=== PATIENT | female | born 1940 | race Caucasian/White ===

== ENCOUNTER 2017-06-18 16:10 | Emergency (ER) | payer OTHER ==
[2017-06-18 16:15] VITALS: BP 141/75; PULSE 100; TEMP 98.1; BMI 23.0
--- NOTE | 2017-06-18 16:55 | PDOC ---
Attending Attestation - Resident Resident Name: Chavo Denton - ED Attending Attestation I have performed the following: I have examined & evaluated the patient, The case was reviewed & discussed with the resident, I agree w/resident's findings & plan, Exceptions are as noted - HPI HPI: 06/19/17 02:09 77-year-old woman tripped walking on this sidewalk and sustained facial abrasions and a small nasal bridge laceration - Physicial Exam PE: 06/19/17 02:09 Family female who is alert and conversant presents with forehead bruising, superficial lacerations and a small laceration across the nasal bridge. Neck no pinpoint cervical for tenderness Lungs clear to auscultation bilaterally RSV is regular rate and rhythm S1, S2 Abdomen is soft, nontender, nondistended, no splenic tenderness. Extremities full range of motion, no deformities. Neuro alert and oriented 3, moving all extremities, appropriate affect - Medical Decision Making 06/19/17 02:11 Patient has a nondisplaced nasal fracture. Laceration repaired. Patient discharged home. Head CT was negative for any acute intracranial pathology
--- NOTE | 2017-06-18 17:24 | PDOC ---
History of Present Illness - General Chief Complaint: Injury Stated Complaint: FELL/INJURY TO FACE Time Seen by Provider: 06/18/17 16:49 - History of Present Illness Initial Comments: 06/18/17 17:26 77 yo [place] speaking female who presents with nasal bridge trauma. Pt. reports nasal bridge pain and laceration following fall. States that at 1600 () she was ambulating and left foot was caught and she fell onto hands and knees then slid onto her forehead and face onto the pavement. She states that she is able to breath through bilateral nares and endorses nasal bridge pain. She also complains of frontal head pain. she denies NV, lightheadedness, LOC, vision change, neck pain/stiffness, back pain, weakness, or fatigue. No chest pain. Has had ongoing GI upset for past month and follows with Dr. Jovanna CHARLES. Also ongoing UTI with antibiotic treatment. Pt. non intoxicated. No anticoagulation. Past History - Past Medical History Allergies/Adverse Reactions: Allergies Allergy/AdvReac Type Severity Reaction Status Date / Time Penicillins Allergy Severe Difficulty Verified 06/18/17 16:15 Breathing Home Medications: Ambulatory Orders Alendronate Na [Fosamax (Weekly)] 70 mg PO Q7D 12/26/13 Bupropion HCl [Wellbutrin Xl -] 150 mg PO DAILY 12/26/13 Folic Acid - 1 mg PO DAILY 12/26/13 Prednisone [Deltasone -] 5 mg PO DAILY 12/26/13 Sulfasalazine [Sulfazine] 500 mg PO BID 12/26/13 Indomethacin 50 mg PO DAILY 07/29/14 Ranitidine [Zantac -] 150 mg PO DAILY 07/29/14 Anemia: No Asthma: No Cancer: Yes (BREAST) Cardiac Disorders: No CVA: No COPD: No CHF: No Dementia: No Diabetes: No GI Disorders: No Disorders: No HTN: No Hypercholesterolemia: No Liver Disease: No Psychiatric Problems: Yes (DEPRESSION) Seizures: No Thyroid Disease: No Other medical history: RHEUMATIC ARTHRITIS - Surgical History Appendectomy: No Cardiac Surgery: No Cholecystectomy: No Lung Surgery: No Neurologic Surgery: Yes ("FUSION OF SPINAL BONES") Orthopedic Surgery: No - Psycho/Social/Smoking Cessation Hx Anxiety: No Suicidal Ideation: No Smoking History: Never smoked Hx Alcohol Use: No Drug/Substance Use Hx: No Substance Use Type: None Hx Substance Use Treatment: No Review of Systems - Review of Systems Comments:: 06/18/17 17:00 GENERAL/CONSTITUTIONAL: No fever or chills. No weakness. HEAD, EYES, EARS, NOSE AND THROAT: No change in vision. No ear pain or discharge. No sore throat.- CARDIOVASCULAR: No chest pain or shortness of breath RESPIRATORY: No cough, wheezing, or hemoptysis. GASTROINTESTINAL: No nausea, vomiting, diarrhea or constipation. GENITOURINARY: No dysuria, frequency, or change in urination. MUSCULOSKELETAL: No joint or muscle swelling or pain. No neck or back pain. SKIN: No rash NEUROLOGIC: No headache, vertigo, loss of consciousness, or change in strength/ sensation. ENDOCRINE: No increased thirst. No abnormal weight change HEMATOLOGIC/LYMPHATIC: No anemia, easy bleeding, or history of blood clots. ALLERGIC/IMMUNOLOGIC: No hives or skin allergy. *Physical Exam - Vital Signs Last Vital Signs Temp Pulse Resp BP Pulse Ox 98.1 F 100 H 18 141/75 100 06/18/17 16:11 06/18/17 16:11 06/18/17 16:11 06/18/17 16:11 06/18/17 16:11 - Physical Exam Comments: 06/18/17 17:00 GENERAL: Awake, alert, and fully oriented, in no acute distress EYES: PERRLA, EOMI, sclera anicteric, conjunctiva clear ENT: Auricles normal inspection, hearing grossly normal, nares patent, oropharynx clear without exudates. Moist mucosa NECK: Normal ROM, supple, no lymphadenopathy, JVD, or masses LUNGS: No distress, speaks full sentences, clear to auscultation bilaterally HEART: Regular rate and rhythm, normal S1 and S2, no murmurs, rubs or gallops, peripheral pulses normal and equal bilaterally. ABDOMEN: Soft, nontender, normoactive bowel sounds. No guarding, no rebound. No masses EXTREMITIES : Normal inspection, Normal range of motion, no edema. No clubbing or cyanosis. SKIN: Warm, Dry, normal turgor, no rashes or lesions noted. + ttp at nasal bridge with proximal 1 cm horizontal laceration. absent septal deviation or septal hematoma. + dried blood in BL nares. + Frontal sinus ttp. + left sided frontal forehead abrasion No evidence of tongue laceration or tooth avulsion.Absent maxillary/mandibular ttp. Cleared via Nexus criteria, absent C spine ttp, AMS, distracting injury. BL knees: left knee vargus deformity d/t chronic arthritis. BNL knee exam unremarkable with + BL patellar abrasions.Neg Ant drawer and post drawer test . Normal Valgus and Varus laxity. Absent tibial plateua ttp. Normal active and passive ROM. Asbent ecchymosis and swelling. Absent joint effusion. Medical Decision Making - Medical Decision Making 06/18/17 17:42 77 yo [place] speaking female who presents with nasal bridge trauma. Pt. reports nasal bridge pain and laceration following fall. States that at 1600 () she was ambulating and left foot was caught and she fell onto hands and knees then slid onto her forehead and face onto the pavement. She states that she is able to breath through bilateral nares and endorses nasal bridge pain. She also complains of frontal head pain. Denies associated symptoms. + ttp at nasal bridge with proximal 1 cm horizontal laceration. absent septal deviation or septal hematoma. + Frontal sinus ttp. + left sided frontal forehead abrasion Cleared via Nexus criteria. DDx: Nasal bridge laceration vs fracture ED Course: Non Con CT Head/Face 06/18/17 19:00 CT Face: Fracture at tip of nasal bone CT head: neg *DC/Admit/Observation/Transfer Diagnosis at time of Disposition: Nasal bone fracture Qualifiers: Encounter type: initial encounter Fracture type: closed Qualified Code(s): S02.2XXA - Fracture of nasal bones, initial encounter for closed fracture - Discharge Dispostion Disposition: HOME Condition at time of disposition: Improved Admit: No - Patient Instructions Additional Instructions: Please return to Ed if you experience severe headaches, nausea/vomiting, neck pain, or worsening symptoms. Please take Ibuprofen 600 mg and/or acetaminophen as needed. Do not exceed 3200 mg per day.
== END 2017-06-18 19:52 | disposition home or self-care (01) ==
LOC: JER 16:10
PROC: 09QK3ZZ Repair Nasal Mucosa and Soft Tissue, Percutaneous Approach (ICD-10-PCS; principal; 2017-06-18)
DX: S02.2XXA Fracture of nasal bones, initial encounter for closed fracture (principal); S01.21XA Laceration without foreign body of nose, initial encounter; S00.81XA Abrasion of other part of head, initial encounter; W01.0XXA Fall on same level from slipping, tripping and stumbling without subsequent striking against object, initial encounter; Y93.89 Activity, other specified; Y92.480 Sidewalk as the place of occurrence of the external cause; F32.9 Major depressive disorder, single episode, unspecified; M06.9 Rheumatoid arthritis, unspecified; Z85.3 Personal history of malignant neoplasm of breast
CPT/HCPCS: 12011-25; 70450-TC; 70486-TC; 99282-25

== ENCOUNTER 2018-01-10 10:06 | Inpatient (IN) | payer OTHER ==
[2018-01-10 10:11] VITALS: BMI 16.6
--- NOTE | 2018-01-10 10:17 | PDOC ---
History of Present Illness - General Chief Complaint: Pain, Acute Stated Complaint: FEVER, NAUSEA History Source: Patient Exam Limitations: No Limitations - History of Present Illness Initial Comments: 01/10/18 10:17 HPI: This 77-year-old female who is speaking only presents to the emergency room with her daughter who is translating. According to the daughter the patient has been having a fever, nausea, vomiting 2 days. She's been having chills and yesterday was noted to have a fever of 102. She took Motrin and the fever came down however she was been lying around. She has been under the care of Dr. Nugent since June 12 GI problems and some gallstones according to the daughter. She was recently at Dr. Nugent's office and after calling him today about the fever chills and nausea and vomiting he was concerned to have her being sent in for further evaluation. She has had a weight loss of over 35 pounds in the last 6 months. Chief Compliant: Fever, nausea, vomiting PMH: Breast cancer, depression, rheumatoid arthritis FH: Pt has not recently traveled outside the country in the last 30 days. Pt has not been in contact with people who have traveled out of the country, in contact with people who have been ill with fever, n, v, d. SH: smoking use: NONE illicit drug use: NONE alcohol use: NONE employment/educational status: sexual history: PSH: Spinal fusion Home med use noted on DEC Allergies: Penicillin Immunizations: PCP: [facility] [employer] Grazier is Dr. Spence he Emergency Crew Supervisor is Dr. Lance Noriega GI physician is Dr. Nugent Past History - Past Medical History Allergies/Adverse Reactions: Allergies Allergy/AdvReac Type Severity Reaction Status Date / Time Penicillins Allergy Severe Difficulty Verified 01/10/18 10:11 Breathing Home Medications: Ambulatory Orders Bupropion HCl [Wellbutrin Xl -] 150 mg PO DAILY 12/26/13 Folic Acid - 1 mg PO DAILY 12/26/13 Sulfasalazine [Sulfazine] 500 mg PO BID 12/26/13 predniSONE [Deltasone -] 5 mg PO DAILY 12/26/13 Atorvastatin Calcium 20 mg PO HS 01/10/18 Calcium Carbonate [Calcium] 600 mg PO DAILY 01/10/18 Certolizumab Pegol [Cimzia] 400 mg SQ Q30D 01/10/18 Duloxetine HCl 30 mg PO BID 01/10/18 Metoclopramide HCl 5 mg PO DAILY 01/10/18 Mirtazapine 7.5 mg PO HS 01/10/18 Omeprazole 40 mg PO DAILY 01/10/18 Ondansetron [Zofran -] 4 mg PO TID 01/10/18 Anemia: No Asthma: No Cancer: Yes (BREAST) Cardiac Disorders: No CVA: No COPD: No CHF: No DVT: No Dementia: No Diabetes: No GI Disorders: No Disorders: No HTN: No Hypercholesterolemia: No Liver Disease: No Psychiatric Problems: Yes (DEPRESSION) Seizures: No Thyroid Disease: No - Surgical History Appendectomy: No Cardiac Surgery: No Cholecystectomy: No Lung Surgery: No Neurologic Surgery: Yes ("FUSION OF SPINAL BONES") Orthopedic Surgery: No - Immunization History Immunization Up to Date: Yes - Suicide/Smoking/Psychosocial Hx Smoking History: Never smoked Information on smoking cessation initiated: No Hx Alcohol Use: No Drug/Substance Use Hx: No Substance Use Type: None Hx Substance Use Treatment: No Review of Systems - Review of Systems Able to Perform ROS?: Yes Comments:: 01/10/18 13:58 General statement: Fever, nausea and vomiting but has been sick for quite some time Hematology: neg history of bleeding/blood thinners Skin: Neg for lesions, rash, bruising. HEENT: Neg symptoms Respiratory: Neg SOB or difficulty in breathing Cardiac: Neg chest pain GI: + pain, n/v : Neg problems on voiding MS: Neg for joint pain/stiffness, no edema Neuro: Neg for LOC, weakness, Endocrine: Neg for excess thirst/hunger, cold/heat intolerance, excess sweating Allergies: + for allergies *Physical Exam - Vital Signs Last Vital Signs Temp Pulse Resp BP Pulse Ox 98.2 F 20 106/60 98 01/10/18 10:08 01/10/18 10:08 01/10/18 10:08 01/10/18 10:08 - Physical Exam Comments: 01/10/18 13:59 General Appearance: This is thin 77-year-old female V/S: hemodynamically stable, afebrile Skin: WNL of pt's skin color, no signs of pallor, mottling, cyanosis Head:symmetrical Eyes: EOM's intact, PERRLA Ears: denies pain Nose: patent Throat: lips, teeth, gums, tongue, buccal mucos pink and moist Lungs: Chest symmetry equal. Cap refill <3 seconds. Lung sounds clear Cardiac: PMI at R 4MCL space, pos S1 and S2, regular rate. Abdomen: Soft, round, diffusely tender : Not observed Muscularskeletal: Gait steady, ambulated in to ER, no edema +PMS Neuro: AAOx3, cognitively intact, speech clear and appropriate. Heart Score/ECG Review - History History: Slightly suspicious - Electrocardiogram EKG: Normal - Age Age: >/= 65 - Risk Factors Risk Factors Heart Score: Yes Hx Hypercholesterolemia, Yes Hx Hypertension Based on the list above the patient has:: 1-2 risk factors - Troponin Troponin: </= normal limit - Score Heart Score - Total: 3 - ECG Intrepretation Rhythm: Regular Rhythm Comment:: 01/10/18 14:00 Patient EKG has a sinus tachycardia with a ventricular rate of 108. There are noted some premature atrial complexes in this EKG. There is a QRS duration of 74 and GA interval 148. He does have a left axis deviation. ED Treatment Course - LABORATORY CBC & Chemistry Diagram: 01/10/18 11:15 01/10/18 11:15 Medical Decision Making - Medical Decision Making 01/10/18 14:01 Initially seen and examined. Patient is a small thin female who apparently has been having some nausea, vomiting, abdominal pain and fevers for quite some time. She has been under the care of a GI physician for cholelithiasis. It did not have a plan for when they were removing the stones. At this time the patient is afebrile. I have started the patient with a Plan Chest x-ray Labs, Lipase/amylase EKG, CAT scan IV and by mouth abdominal and pelvic Patient's chest x-ray shows a questionable left infiltrate and has started now on a Zithromax and vancomycin Labs are reviewed showing some elevated white count of 27 however the patient is on chronic use of prednisone for her osteopenia and arthritis. She is afebrile. After reviewing her past charts she does have a tendency to have elevated white counts however this one is quite high at 27 which is typically been running between 15 and 20. EKG is sinus tach Patient pending for CAT scan. 01/10/18 16:08 Abdominal pelvic CAT scan shows no acute colitis with colonic distention possibly representing an ileus also with chronic interstitial bronchiole tissue out apparently. Appears worse from prior exam. I spoke with Dr. Nugent regarding the patient and due to the fact of her extremely elevated white count although on prednisone and her gallstones and fever documented from last night he felt it was imperative that she stays and gets admitted to have a workup. Hospitals notified for admission *DC/Admit/Observation/Transfer Diagnosis at time of Disposition: Cholelithiasis and acute cholecystitis without obstruction, COPD not affecting current episode of care UTI (urinary tract infection) Qualifiers: Urinary tract infection type: acute cystitis Hematuria presence: with hematuria Qualified Code(s): N30.01 - Acute cystitis with hematuria Abdominal pain Qualifiers: Abdominal location: epigastric Qualified Code(s): R10.13 - Epigastric pain - Discharge Dispostion Condition at time of disposition: Fair Admit: Yes - Referrals Referrals: Luan Hankins MD [Primary Care Provider] - - Patient Instructions - Post Discharge Activity
--- NOTE | 2018-01-10 10:38 | PDOC ---
*Physical Exam - Vital Signs Last Vital Signs Temp Pulse Resp BP Pulse Ox 98.2 F 20 106/60 98 01/10/18 10:08 01/10/18 10:08 01/10/18 10:08 01/10/18 10:08 - Physical Exam Comments: 01/10/18 10:38 The patient was examined by [TUAN Perez] under my direct supervision. I personally evaluated the patient. I concur with the above findings and the plan of care. 01/10/18 15:29 77-year-old female with history of rheumatoid arthritis on prednisone, ulcerative colitis, cholelithiasis presents to the ER with fever, chills nausea and vomiting for the past 2 days. MAXIMUM TEMPERATURE is noted to be 102 prior to arrival. In the ER, patient is awake and alert, frail-appearing, in no significant distress. Chest x-ray reveals thickening of the the fissure on the right but no evidence of obvious infiltrate or effusion. CT of abdomen and pelvis reveals fluid-filled colon consistent with ileus, significant bronchiectasis bilaterally but no evidence of acute pathology. Bedside ultrasound shows numerous gallstones but no evidence of positive Hummel's. CBCs reveals significant leukocytosis with bandemia. Urinalysis reveals pyuria. I suspect urosepsis. Blood and urine cultures been obtained. We'll administer Levaquin due to patient's penicillin ALLERGY. Will admit. ED Treatment Course - LABORATORY CBC & Chemistry Diagram: 01/10/18 11:15 01/10/18 11:15 *DC/Admit/Observation/Transfer Diagnosis at time of Disposition: UTI (urinary tract infection), Cholelithiasis and acute cholecystitis without obstruction, Abdominal pain, COPD not affecting current episode of care - Discharge Dispostion Condition at time of disposition: Fair - Referrals - Patient Instructions - Post Discharge Activity
[2018-01-10 11:29] LABS: VENOUS PC02 46.7 mmHg (38-52); VENOUS PH 7.4 (7.32-7.42)
[2018-01-10 11:30] LABS: VENOUS PO2 21.5 mmHg (28-48)
[2018-01-10 11:31] LABS: HEMATOCRIT 32.9 % (32.4-45.2); MCH 32.7 pg (25.7-33.7); MCHC 33.4 g/dl (32.0-36.0); MEAN CELL VOLUME 97.8 fl (80-96); MEAN PLT VOLUME 7.7 fl (7.5-11.1); PLATELET COUNT 335 K/MM3 (134-434); RBC 3.37 M/mm3 (3.60-5.2); RDW 13.8 % (11.6-15.6)
[2018-01-10 11:33] LABS: URINE APPEARANCE CLEAR; URINE BILIRUBIN NEGATIVE (<2.0 mg/dL); URINE BLOOD NEGATIVE (NEGATIVE); URINE GLUCOSE (UA) 1+ (NEGATIVE); URINE KETONE TRACE (NEGATIVE); URINE NITRITE NEGATIVE (NEGATIVE); URINE UROBILINOGEN NEGATIVE mg/dL (0.2-1.0)
[2018-01-10 11:36] LABS: URINE COLOR DK YELLOW; URINE LEUK ESTERASE 1+ (NEGATIVE); URINE PROTEIN 2+ (NEGATIVE)
[2018-01-10 11:41] LABS: EPI CELLS RARE /HPF (FEW); URINE HYALINE CAST 4 /lpf; URINE MUCUS MANY
[2018-01-10 11:48] LABS: INR 1.34 (0.82-1.09); PROTHROMBIN TIME (PATIENT) 15.1 SEC (9.98-11.88)
[2018-01-10 11:51] LABS: ACTIVATED PTT 35.9 SECONDS (26.9-34.4)
[2018-01-10 11:58] LABS: ALBUMIN 3.2 g/dl (3.4-5.0); ANION GAP 8 (8-16); BLOOD UREA NITROGEN 12 mg/dL (7-18); CALCIUM 8.6 mg/dL (8.5-10.1); CHLORIDE 97 mmol/L (98-107); CO2 27 mmol/L (21-32); CREATININE 0.5 mg/dL (0.55-1.02); GLUCOSE,RANDOM 81 mg/dL (74-106); SGPT/ALT 20 U/L (12-78); SODIUM 132 mmol/L (136-145)
[2018-01-10 12:01] LABS: ALK PHOS 205 U/L (45-117); BILIRUBIN,TOTAL 0.8 mg/dL (0.2-1.0); TOT PROT 8.2 g/dl (6.4-8.2)
[2018-01-10 12:07] LABS: POTASSIUM 4.6 mmol/L (3.5-5.1); SGOT/AST 39 U/L (15-37)
[2018-01-10 12:21] LABS: ANISOCYTOSIS 0; MACROCYTOSIS 1+; PLATELET ESTIMATE NORMAL; TEAR DROP CELLS 1+
[2018-01-10] MEDS ORDERED: SODIUM CHLORIDE 1,000 ML IV SCH (12:30)
[2018-01-10] MEDS ORDERED: VANCOMYCIN 1,000 MG in DEXTROSE 5%-WATER - 250 ML IVPB ONE (12:48)
[2018-01-10] MEDS ORDERED: AZITHROMYCIN 500 MG VIAL IVPB ONE (12:49)
[2018-01-10] MEDS ORDERED: AZITHROMYCIN IVPB 250 ML IVPB ONE (13:14)
[2018-01-10] MEDS ORDERED: VANCOMYCIN 1 GRAM (PRE-DOCKED) 1,000 MG/250 ML BAG IVPB ONE (13:14)
--- NOTE | 2018-01-10 13:14 | EKG ---
Test Reason : Blood Pressure : / mmHG Vent. Rate : 108 BPM Atrial Rate : 108 BPM P-R Int : 148 ms QRS Dur : 074 ms QT Int : 350 ms P-R-T Axes : 030 -39 -04 degrees QTc Int : 469 ms SINUS TACHYCARDIA WITH PREMATURE ATRIAL COMPLEXES LEFT AXIS DEVIATION MINIMAL VOLTAGE CRITERIA FOR LVH, MAY BE NORMAL VARIANT ABNORMAL ECG NO PREVIOUS ECGS AVAILABLE Confirmed by CARLINE LUCAS, LOKESH ([id number]) on 01/10/2018 1:14:38 PM Referred By: Confirmed By:LOKESH CROWLEY MD
--- NOTE | 2018-01-10 17:33 | HP ---
CHIEF COMPLAINT: Fever, nausea, vomiting x 2 days PCP: Dr. Costa GI: Dr. Nugent HISTORY OF PRESENT ILLNESS: 77 year-old female with a PMH significant for breast cancer, rheumatoid arthritis, and depression. Presented to the emergency room today with her daughter. Patient has had fever, chills, nausea, and vomiting 2 days. Temp at home 102. Patient has been under the care of Dr. Nugent since June 2017 for gallstone-related problems. The daughter states patient had a HIDA scan last week and Dr. Nugent has results (not in EMR). Patient has lost 35 pounds in the last 5 months. ER course was notable for: (1) afebrile, p105, BP 103/50, WBC 27 (2) Azithro x 1; Levofloxacin 500mg x 1; Vanco 1g x 1 Recent Travel: No PAST MEDICAL HISTORY: Breast cancer Rheumatoid arthritis Depression PAST SURGICAL HISTORY: Spinal fusion Social History: Smoking: no Alcohol: no Drugs: no Family History: Allergies Penicillins Allergy (Severe, Verified 01/10/18 10:11) Difficulty Breathing HOME MEDICATIONS: Home Medications Medication Instructions Recorded Bupropion HCl [Wellbutrin Xl -] 150 mg PO DAILY 12/26/13 Folic Acid - 1 mg PO DAILY 12/26/13 Sulfasalazine [Sulfazine] 500 mg PO BID 12/26/13 predniSONE [Deltasone -] 5 mg PO DAILY 12/26/13 Atorvastatin Calcium 20 mg PO HS 01/10/18 Calcium Carbonate [Calcium] 600 mg PO DAILY 01/10/18 Certolizumab Pegol [Cimzia] 400 mg SQ Q30D 01/10/18 Duloxetine HCl 30 mg PO BID 01/10/18 Metoclopramide HCl 5 mg PO DAILY 01/10/18 Mirtazapine 7.5 mg PO HS 01/10/18 Omeprazole 40 mg PO DAILY 01/10/18 Ondansetron [Zofran -] 4 mg PO TID 01/10/18 REVIEW OF SYSTEMS CONSTITUTIONAL: +fever, chills, weight change Absent: fever, chills, diaphoresis, generalized weakness, malaise, loss of appetite, weight change HEENT: Absent: rhinorrhea, nasal congestion, throat pain, throat swelling, difficulty swallowing, mouth swelling, ear pain, eye pain, visual changes CARDIOVASCULAR: Absent: chest pain, syncope, palpitations, irregular heart rate, lightheadedness , peripheral edema RESPIRATORY: Absent: cough, shortness of breath, dyspnea with exertion, orthopnea, wheezing, stridor, hemoptysis GASTROINTESTINAL: +nausea, vomiting Absent: abdominal pain, abdominal distension, nausea, vomiting, diarrhea, constipation, melena, hematochezia GENITOURINARY: Absent: dysuria, frequency, urgency, hesitancy, hematuria, flank pain, genital pain MUSCULOSKELETAL: Absent: myalgia, arthralgia, joint swelling, back pain, neck pain SKIN: +mild jaundice Absent: rash, itching, pallor HEMATOLOGIC/IMMUNOLOGIC: Absent: easy bleeding, easy bruising, lymphadenopathy, frequent infections ENDOCRINE: Absent: unexplained weight gain, unexplained weight loss, heat intolerance, cold intolerance NEUROLOGIC: Absent: headache, focal weakness or paresthesias, dizziness, unsteady gait, seizure, mental status changes, bladder or bowel incontinence PSYCHIATRIC: Absent: anxiety, depression, suicidal or homicidal ideation, hallucinations. PHYSICAL EXAMINATION Vital Signs - 24 hr 01/10/18 01/10/18 01/10/18 10:08 11:25 11:28 Temperature 98.2 F Pulse Rate [ 90 Apical] Respiratory 20 Rate Blood Pressure 106/60 Blood Pressure [Right Arm] O2 Sat by Pulse 98 98 Oximetry (%) 01/10/18 14:50 Temperature 98.1 F Pulse Rate [ 105 H Apical] Respiratory 17 Rate Blood Pressure Blood Pressure 103/50 [Right Arm] O2 Sat by Pulse 97 Oximetry (%) GENERAL: Awake, alert, and fully oriented, in no acute distress. HEAD: Normal with no signs of trauma. EYES: Pupils equal, round and reactive to light, extraocular movements intact, mildly icteric sclera, conjunctiva clear. No lid lag. EARS, NOSE, THROAT: Ears normal, nares patent, oropharynx clear without exudates. Moist mucous membranes. NECK: Normal range of motion, supple without lymphadenopathy, JVD, or masses. LUNGS: Breath sounds equal, clear to auscultation bilaterally. No wheezes, and no crackles. No accessory muscle use. HEART: Regular rate and rhythm, normal S1 and S2 without murmur, rub or gallop. ABDOMEN: Soft, +suprapubic tenderness, not distended, normoactive bowel sounds, no guarding, no rebound, no masses. MUSCULOSKELETAL: Normal range of motion at all joints. No bony deformities or tenderness. No CVA tenderness. UPPER EXTREMITIES: 2+ pulses, warm, well-perfused. No cyanosis. No clubbing. No peripheral edema. LOWER EXTREMITIES: 2+ pulses, warm, well-perfused. No calf tenderness. No peripheral edema. NEUROLOGICAL: Cranial nerves II-XII intact. Normal speech. Laboratory Results - last 24 hr 01/10/18 01/10/18 01/10/18 11:15 11:15 11:15 WBC 27.0 H D RBC 3.37 L Hgb 11.0 D Hct 32.9 MCV 97.8 H MCH 32.7 D MCHC 33.4 RDW 13.8 D Plt Count 335 MPV 7.7 Neutrophils % No Result Required. Neutrophils % (Manual) 74.0 Band Neutrophils % 18.7 Lymphocytes % No Result Required. Lymphocytes % (Manual) 0.0 L Monocytes % (Manual) 5 Eosinophils % (Manual) 0.0 Basophils % (Manual) 0.0 Myelocytes % (Man) 0 Promyelocytes % (Man) 0 Blast Cells % (Manual) 0 Nucleated RBC % 0 Metamyelocytes 2 Hypochromia 0 Platelet Estimate Normal Polychromasia 0 Poikilocytosis 0 Anisocytosis 0 Microcytosis 0 Macrocytosis 1+ Tear Drop Cells 1+ PT with INR 15.10 H INR 1.34 H PTT (Actin FS) 35.9 H VBG pH POC VBG pCO2 POC VBG pO2 Mixed VBG HCO3 Sodium Potassium Chloride Carbon Dioxide Anion Gap BUN Creatinine Creat Clearance w eGFR Random Glucose Lactic Acid Calcium Total Bilirubin AST ALT Alkaline Phosphatase Troponin I Total Protein Albumin Total Amylase Lipase Urine Color Dk yellow Urine Appearance Clear Urine pH 5.0 Ur Specific [place] 1.025 Urine Protein 2+ H Urine Glucose (UA) 1+ H Urine Ketones Trace H Urine Blood Negative Urine Nitrite Negative Urine Bilirubin Negative Urine Urobilinogen Negative Ur Leukocyte Esterase 1+ H Urine WBC (Auto) 16 Urine RBC (Auto) 6 Ur Epithelial Cells Rare Hyaline Casts 4 Urine Mucus Many 01/10/18 01/10/18 01/10/18 11:15 11:15 11:15 WBC RBC Hgb Hct MCV MCH MCHC RDW Plt Count MPV Neutrophils % Neutrophils % (Manual) Band Neutrophils % Lymphocytes % Lymphocytes % (Manual) Monocytes % (Manual) Eosinophils % (Manual) Basophils % (Manual) Myelocytes % (Man) Promyelocytes % (Man) Blast Cells % (Manual) Nucleated RBC % Metamyelocytes Hypochromia Platelet Estimate Polychromasia Poikilocytosis Anisocytosis Microcytosis Macrocytosis Tear Drop Cells PT with INR INR PTT (Actin FS) VBG pH 7.40 POC VBG pCO2 46.7 POC VBG pO2 21.5 L Mixed VBG HCO3 28.3 H Sodium 132 L Potassium 4.6 Chloride 97 L Carbon Dioxide 27 Anion Gap 8 BUN 12 Creatinine 0.5 L Creat Clearance w eGFR > 60 Random Glucose 81 Lactic Acid 1.9 Calcium 8.6 Total Bilirubin 0.8 D AST 39 H ALT 20 Alkaline Phosphatase 205 H Troponin I Total Protein 8.2 Albumin 3.2 L Total Amylase Lipase Urine Color Urine Appearance Urine pH Ur Specific [place] Urine Protein Urine Glucose (UA) Urine Ketones Urine Blood Urine Nitrite Urine Bilirubin Urine Urobilinogen Ur Leukocyte Esterase Urine WBC (Auto) Urine RBC (Auto) Ur Epithelial Cells Hyaline Casts Urine Mucus 01/10/18 01/10/18 01/10/18 11:15 11:50 11:50 WBC RBC Hgb Hct MCV MCH MCHC RDW Plt Count MPV Neutrophils % Neutrophils % (Manual) Band Neutrophils % Lymphocytes % Lymphocytes % (Manual) Monocytes % (Manual) Eosinophils % (Manual) Basophils % (Manual) Myelocytes % (Man) Promyelocytes % (Man) Blast Cells % (Manual) Nucleated RBC % Metamyelocytes Hypochromia Platelet Estimate Polychromasia Poikilocytosis Anisocytosis Microcytosis Macrocytosis Tear Drop Cells PT with INR INR PTT (Actin FS) VBG pH POC VBG pCO2 POC VBG pO2 Mixed VBG HCO3 Sodium Potassium Chloride Carbon Dioxide Anion Gap BUN Creatinine Creat Clearance w eGFR Random Glucose Lactic Acid Calcium Total Bilirubin AST ALT Alkaline Phosphatase Troponin I < 0.02 Total Protein Albumin Total Amylase 12 L Lipase 42 L Urine Color Urine Appearance Urine pH Ur Specific [place] Urine Protein Urine Glucose (UA) Urine Ketones Urine Blood Urine Nitrite Urine Bilirubin Urine Urobilinogen Ur Leukocyte Esterase Urine WBC (Auto) Urine RBC (Auto) Ur Epithelial Cells Hyaline Casts Urine Mucus Imaging 04/06/17 US abdomen: gallbladder normal and free of calculi, no intra or extrhepatic biliary duct dilatation; normal study 01/10/17 CTAP: extensive chronic interstitial lung disease; mild diffuse air- filled colonic distension, may be an ileus 01/10/18 CXR unremarkable ASSESSMENT/PLAN 77 year-old female with a PMH significant for breast cancer, rheumatoid arthritis, and depression. Admitted for sepsis of uncertain etiology. Sepsis of uncertain etiology --pulse 105, WBC 27 --intra-abdominal source v. UTI v. lung infiltrate v. malignancy?? --CTAP today shows unremarkable gallbladder; 04/06/17 US shows normal gallbladder and no stones (?); will get repeat US abdomen now --track down HIDA results --patient is immunocompromised, allergic to PCN; continue levofloxacin, start metronidazole; got Vanc in ED --cultures pending r/o Ileus --CTAP shows mild diffuse air-fileed colonic distension, may be an ileus --NPO Chronic interstitial lung disease Possible infiltrate --CTAP: progressive bronchiectatic changes left base with possible infiltrate --levofloxacin --pulmonary consult Breast cancer Hyperproteinemia --recent weight loss concerning; mild jaundice --heme consult Rheumatoid arthritis --continue daily prednisone 5mg --hold DMARDS --rheum consult Depression --continue Wellbutrin, cymbalta FEN Fluids: Give 1L NS now; then D5NS@83mL/hr while NPO Electrolytes: replete as indicated DVT prophylaxis: subq heparin, oob, ambulation Physical therapy Dispos: requires continued inpatient care. Full code. Visit type - Emergency Visit Emergency Visit: Yes ED Registration Date: 01/10/18 Care time: The patient presented to the Emergency Department on the above date and was hospitalized for further evaluation of their emergent condition. - New Patient This patient is new to me today: Yes Date on this admission: 01/10/18 - Critical Care Critical Care patient: No Hospitalist Screening - Colonoscopy Questionnaire Colonoscopy Questionnaire: Colonoscopy Questionnaire - Patient: 50 - 75 years old and never had a screening colonoscopy: Unknown History of colon or rectal polyps, or CA: Unknown History of IBD, Crohn's disease or UC: Unknown History of abdominal radiation therapy as a child: Unknown - Relative: 1 with colon or rectal CA, or polyps at age 60 or younger: Unknown Colon or rectal CA diagnosed at age 45 or younger: Unknown Multiple relatives with colon or rectal CA: Unknown - Outcome: Screening Result: Negative Screen
[2018-01-10] MEDS ORDERED: SODIUM CHLORIDE 1,000 ML IV STA (18:41)
[2018-01-10] MEDS ORDERED: PANTOPRAZOLE SODIUM 40 MG in SODIUM CHLORIDE 100 ML IVPB ONE (18:55)
--- NOTE | 2018-01-10 19:02 | CON.GI ---
Consult Consult Specialty:: gastroenterology - History of Present Illness History of Present Illness: 77 y/o female with PMH of Rheumatoid arthritis on chronic Cimzia use and Prednisone was informed by her daughter to have Tmaz of 103 at home. She complains of poor appetite and weight loss. Catscan revealed dilated colon consistent with ileus. - History Source History Provided By: Patient - Past Medical History Rheumatology: Yes: Rheumatoid Arthritis - Alcohol/Substance Use Hx Alcohol Use: No - Smoking History Smoking history: Never smoked Home Medications - Allergies Allergies/Adverse Reactions: Allergies Allergy/AdvReac Type Severity Reaction Status Date / Time Penicillins Allergy Severe Difficulty Verified 01/10/18 10:11 Breathing - Home Medications Home Medications: Ambulatory Orders Bupropion HCl [Wellbutrin Xl -] 150 mg PO DAILY 12/26/13 Folic Acid - 1 mg PO DAILY 12/26/13 Sulfasalazine [Sulfazine] 500 mg PO BID 12/26/13 predniSONE [Deltasone -] 5 mg PO DAILY 12/26/13 Atorvastatin Calcium 20 mg PO HS 01/10/18 Calcium Carbonate [Calcium] 600 mg PO DAILY 01/10/18 Certolizumab Pegol [Cimzia] 400 mg SQ Q30D 01/10/18 Duloxetine HCl 30 mg PO BID 01/10/18 Metoclopramide HCl 5 mg PO DAILY 01/10/18 Mirtazapine 7.5 mg PO HS 01/10/18 Omeprazole 40 mg PO DAILY 01/10/18 Ondansetron [Zofran -] 4 mg PO TID 01/10/18 Physical Exam-GI Vital Signs: Vital Signs Temperature 98.1 F 01/10/18 14:50 Pulse Rate 107 H 01/10/18 17:30 Respiratory Rate 18 01/10/18 17:30 Blood Pressure 114/55 01/10/18 17:30 O2 Sat by Pulse Oximetry (%) 100 01/10/18 17:30 Constitutional: Yes: Well Nourished Eyes: Yes: Conjunctiva Clear HENT: Yes: Atraumatic Neck: Yes: Supple Cardiovascular: Yes: Regular Rate and Rhythm Respiratory: Yes: CTA Bilaterally ...Palpate: Yes: Soft, Tenderness (--diffuse). No: Firm/Rigid, Guarding, Hepatomegaly, Mass, Pulsatile Mass, Splenomegaly Labs: CBC, BMP 01/10/18 11:15 01/10/18 11:15 INR, PTT INR 1.34 (0.82-1.09) H 01/10/18 11:15 Assessment/Plan Abdominal pain r/o secondary to ileus from Sepsis R> will need hematology,infectious, rheumatology consult --r/o secondary to side effect from Cimzia clear liquids IV Protonix and IV Reglan
[2018-01-10] MEDS ORDERED: PANTOPRAZOLE SODIUM 40 MG VIAL IVPUSH ONE (19:45)
[2018-01-10] MEDS ORDERED: PNEUMOC 13-VAL CONJ-DIP CRM/PF 0.5 ML DISP.SYRIN IM ONE (20:00)
[2018-01-10] MEDS: DEXTROSE 5%-NORMAL SALINE 1,000 ML IV SCH (20:50)
[2018-01-10] MEDS: METOCLOPRAMIDE HCL INJECTION 10 MG/2 ML VIAL IVPB SCH (20:51)
[2018-01-10] MEDS: DULoxetine HCL 30 MG CAPSULE.DR (FP) PO SCH (21:10)
[2018-01-10] MEDS: ATORVASTATIN CA 20 MG TABLET (FP) PO SCH (21:10)
[2018-01-10] MEDS ORDERED: ONDANSETRON 4 MG TABLET PO SCH (22:00)
[2018-01-10] MEDS: MIRTAZAPINE 15 MG TABLET (FP) PO SCH (23:28)
[2018-01-11] MEDS: METOCLOPRAMIDE HCL INJECTION 10 MG/2 ML VIAL IVPB SCH ×3 (01:20→17:03)
[2018-01-11 08:19] LABS: ALBUMIN 2.3 g/dl (3.4-5.0); BILIRUBIN,TOTAL 0.6 mg/dL (0.2-1.0)
[2018-01-11 08:25] LABS: BILIRUBIN,DIRECT 0.3 mg/dL (0.0-0.2)
[2018-01-11] MEDS: DULoxetine HCL 30 MG CAPSULE.DR (FP) PO SCH ×2 (10:18→21:50)
[2018-01-11] MEDS: FOLIC ACID 1 MG TABLET (FP) PO SCH (10:18)
[2018-01-11] MEDS: predniSONE 5 MG TABLET (UD) PO SCH (10:18)
[2018-01-11] MEDS: DEXTROSE 5%-NORMAL SALINE 1,000 ML IV SCH ×2 (10:19→21:50)
--- NOTE | 2018-01-11 10:49 | CON.PULM ---
Consult Consult Specialty:: PULMONARY Referred by:: TUAN Charles Reason for Consultation:: interstitial lung disease - History of Present Illness Chief Complaint: abdominal pain History of Present Illness: 77yo female with h/o rheumatoid arthritis with interstitial lung disease, breast ca, depression who was admitted with fevers, chills, nausea and vomiting x 2 days. Being worked up for ileus. Admission CXR showing bilateral interstitial changes confirmed with CT chest. She denies any shortness of breath , cough or wheezing. No chest pain or discomfort. She is a never smoker. Last chest CT was done in 2017 which show similar findings but now with progressive changes on current CT. - History Source History Provided By: Patient, Medical Record Limitations to Obtaining History: Language Barrier - Past Medical History Rheumatology: Yes: Rheumatoid Arthritis - Alcohol/Substance Use Hx Alcohol Use: No - Smoking History Smoking history: Never smoked Home Medications - Allergies Allergies/Adverse Reactions: Allergies Allergy/AdvReac Type Severity Reaction Status Date / Time Penicillins Allergy Severe Difficulty Verified 01/10/18 10:11 Breathing - Home Medications Home Medications: Ambulatory Orders Bupropion HCl [Wellbutrin Xl -] 150 mg PO DAILY 12/26/13 Folic Acid - 1 mg PO DAILY 12/26/13 Sulfasalazine [Sulfazine] 500 mg PO BID 12/26/13 predniSONE [Deltasone -] 5 mg PO DAILY 12/26/13 Atorvastatin Calcium 20 mg PO HS 01/10/18 Calcium Carbonate [Calcium] 600 mg PO DAILY 01/10/18 Certolizumab Pegol [Cimzia] 400 mg SQ Q30D 01/10/18 Duloxetine HCl 30 mg PO BID 01/10/18 Metoclopramide HCl 5 mg PO DAILY 01/10/18 Mirtazapine 7.5 mg PO HS 01/10/18 Omeprazole 40 mg PO DAILY 01/10/18 Ondansetron [Zofran -] 4 mg PO TID 01/10/18 Review of Systems - Review of Systems Constitutional: reports: Chills, Fever Eyes: denies: Recent Change in Vision HENT: denies: Nasal Congestion, Throat Pain Neck: denies: Stiffness, Tenderness Cardiovascular: denies: Chest Pain, Edema, Shortness of Breath Respiratory: denies: Cough, Hemoptysis, Wheezing Gastrointestinal: reports: Abdominal Pain, Nausea, Vomiting Genitourinary: denies: Dysuria, Hematuria Neurological: denies: Dizziness, Headache Endocrine: reports: Unexplained Weight Loss Physical Exam Vital Sings: Vital Signs Temperature 98 F 01/11/18 06:16 Pulse Rate 98 H 01/11/18 06:16 Respiratory Rate 18 01/11/18 06:16 Blood Pressure 89/51 01/11/18 06:16 O2 Sat by Pulse Oximetry (%) 100 01/11/18 05:52 Constitutional: Yes: Calm Eyes: Yes: Conjunctiva Clear, EOM Intact HENT: Yes: Atraumatic, Normocephalic Neck: Yes: Supple, Trachea Midline Cardiovascular: Yes: Regular Rate and Rhythm Respiratory: Yes: Rales (bibasilar coarse rales) ...Clubbing: No Gastrointestinal: Yes: Normal Bowel Sounds, Soft Edema: No Neurological: Yes: Alert, Oriented Labs: CBC, BMP 01/10/18 11:15 01/10/18 11:15 Imaging - Results Chest X-ray: Report Reviewed, Image Reviewed Cat Scan: Report Reviewed, Image Reviewed (interstitial changes and progressive basilar bronchiectasis) Problem List - Problems (1) Abdominal pain Code(s): R10.9 - UNSPECIFIED ABDOMINAL PAIN Qualifiers: Abdominal location: epigastric Qualified Code(s): R10.13 - Epigastric pain (2) Urinary tract infection Code(s): N39.0 - URINARY TRACT INFECTION, SITE NOT SPECIFIED Qualifiers: Urinary tract infection type: acute cystitis Hematuria presence: with hematuria Qualified Code(s): N30.01 - Acute cystitis with hematuria (3) Rheumatoid arthritis Code(s): M06.9 - RHEUMATOID ARTHRITIS, UNSPECIFIED (4) Interstitial lung disease Code(s): J84.9 - INTERSTITIAL PULMONARY DISEASE, UNSPECIFIED (5) Bronchiectasis Code(s): J47.9 - BRONCHIECTASIS, UNCOMPLICATED Assessment/Plan Abdominal Pain r/o UTI Rheumatoid Arthritis Interstitial Lung Disease Bronchiectasis Depression h/o Breast Ca - on antibiotics for UTI - f/u cultures - CT findings appear to be chronic in nature but with progression since last year - suspect interstitial lung disease secondary to underlying rheumatologic condition but will need to rule out other causes - rheumatology eval - currently without respiratory complaints, will need outpt PFTs and further work up - DVT prophylaxis Thank you for this consult Rosas Guerrero MD
[2018-01-11] MEDS: PANTOPRAZOLE 40 MG TABLET (FP) PO SCH (11:35)
--- NOTE | 2018-01-11 12:13 | PN ---
Physical Exam: SUBJECTIVE: Patient seen and examined. She is feeling better, her abdominal pain is less to gone, she would like to eat. Denies n/v. afebrile OBJECTIVE: Vital Signs Period Temp Pulse Resp BP Sys/Duffy Pulse Ox Last 24 Hr 98 F-98.1 F 91-107 17-18 89-114/47-55 97-100 PE Neuro: alert, awake, cn 2-12intact Pulm: scattered basilar course crackles CV: s1 s2 rrr no mrg Abd: no supra pubic tenderness, no abd tenderness nor distention Ext: no le edema, warm MSK: DIP changes skin: mild jaundice Labs pending Laboratory Results 01/10/18 01/11/18 11:50 06:00 Neutrophils % (Manual) Band Neutrophils % Lymphocytes % (Manual) Monocytes % (Manual) Eosinophils % (Manual) Basophils % (Manual) Myelocytes % (Man) Promyelocytes % (Man) Blast Cells % (Manual) Nucleated RBC % Metamyelocytes Hypochromia Platelet Estimate Polychromasia Poikilocytosis Anisocytosis Microcytosis Macrocytosis Tear Drop Cells Lactic Acid Total Bilirubin 0.6 D Direct Bilirubin 0.3 H AST 14 L ALT 10 L Alkaline Phosphatase 176 H Total Protein 6.0 L Albumin 2.3 L Total Amylase Lipase 42 L Active Medications Generic Name Dose Route Start Last Admin Trade Name Freq PRN Reason Stop Dose Admin Atorvastatin Calcium 20 mg 01/10/18 22:00 01/10/18 21:10 Lipitor - PO 20 mg HS JOSE Administration Bupropion HCl 150 mg 01/11/18 10:00 01/11/18 10:18 Wellbutrin Xl - PO 150 mg DAILY JOSE Administration Duloxetine HCl 30 mg 01/10/18 22:00 01/11/18 10:18 Cymbalta - PO 30 mg BID JOSE Administration Folic Acid 1 mg 01/11/18 10:00 01/11/18 10:18 Folic Acid - PO 1 mg DAILY JOSE Administration Dextrose/Sodium Chloride 1,000 mls @ 83 mls/hr 01/10/18 18:30 01/11/18 10:19 D5-Ns - IV 83 mls/hr ASDIR JOSE Administration Metronidazole 500 mg in 100 mls @ 100 mls/hr 01/10/18 19:45 01/11/18 10:18 Flagyl 500mg Premixed Ivpb - IVPB 100 mls/hr Q8H-IV JOSE Administration Levofloxacin 500 mg in 100 mls @ 100 mls/hr 01/11/18 10:00 01/11/18 10:17 Levaquin 500 Mg Premixed Ivpb - IVPB 100 mls/hr DAILY JOSE Administration Metoclopramide HCl 5 mg 01/10/18 19:45 01/11/18 10:18 Reglan Injection - IVPB 5 mg Q8H-IV JOSE Administration Mirtazapine 7.5 mg 01/10/18 22:00 01/10/18 23:28 Remeron - PO 7.5 mg HS JOSE Administration Pantoprazole Sodium 40 mg 01/11/18 10:00 01/11/18 11:35 Protonix - PO 40 mg DAILY JOSE Administration Prednisone 5 mg 01/11/18 10:00 01/11/18 10:18 Deltasone - PO 5 mg DAILY JOSE Administration Imaging 04/06/17 US abdomen: gallbladder normal and free of calculi, no intra or extrhepatic biliary duct dilatation; normal study 01/10/17 CTAP: extensive chronic interstitial lung disease; mild diffuse air- filled colonic distension, may be an ileus Assessment: 77 year old female with a PMH significant for breast cancer, rheumatoid arthritis, and depression. Admitted for sepsis of uncertain etiology. Plan: 1. Sepsis of uncertain etiology - r/o ileus - US w partially thickened GB, no stones, otherwise unremarkable - Trial clear liquids - IV zofran and reglan - Continue levaquin/flagyl - BC negative - GI seeing 2. Chronic interstitial lung disease vs other rheumatologic etiology - PFTs as outpt - Rheumatology consulted 3. RA - On prednisone daily - Hold DMARDS (cimzia) - Rhem to see 4. r/o UTI - Repeat Urine cx 5. Depression - Cymbalta, wellbutrin, remeron 6. Breast cancer, hyperproteinemia - Recent weight loss concerning; mild jaundice - Heme consulted DVT ppx - Heparin sq - PT Visit type - Emergency Visit Emergency Visit: Yes ED Registration Date: 01/10/18 Care time: The patient presented to the Emergency Department on the above date and was hospitalized for further evaluation of their emergent condition. - New Patient This patient is new to me today: Yes Date on this admission: 01/11/18 - Critical Care Critical Care patient: No
[2018-01-11] MEDS: HEPARIN NA (PORCINE) 5,000 UNITS/ML 1ML VIAL SQ SCH ×2 (13:20→21:50)
[2018-01-11 13:36] LABS: BASO % 0.1 % (0-2.0); EOS % 0.1 % (0-4.5); HEMATOCRIT 29.9 % (32.4-45.2); HEMOGLOBIN 9.9 GM/dL (10.7-15.3); MCH 32.5 pg (25.7-33.7); MCHC 33.2 g/dl (32.0-36.0); MEAN CELL VOLUME 97.9 fl (80-96); MEAN PLT VOLUME 7.5 fl (7.5-11.1); MONO % 3.5 % (3.8-10.2); NEUT % 94.3 % (42.8-82.8); PLATELET COUNT 320 K/MM3 (134-434); RBC 3.05 M/mm3 (3.60-5.2); RDW 14.1 % (11.6-15.6); WHITE BLOOD COUNT 20.8 K/mm3 (4.0-10.0)
[2018-01-11 14:16] LABS: ALBUMIN 2.6 g/dl (3.4-5.0); ALK PHOS 210 U/L (45-117); ANION GAP 12 (8-16); BILIRUBIN,TOTAL 0.5 mg/dL (0.2-1.0); BLOOD UREA NITROGEN 5 mg/dL (7-18); CALCIUM 8.2 mg/dL (8.5-10.1); CHLORIDE 100 mmol/L (98-107); CO2 25 mmol/L (21-32); CREATININE 0.4 mg/dL (0.55-1.02); GLUCOSE,RANDOM 115 mg/dL (74-106); POTASSIUM 3.2 mmol/L (3.5-5.1); SGOT/AST 17 U/L (15-37); SGPT/ALT 11 U/L (12-78); SODIUM 137 mmol/L (136-145); TOT PROT 6.6 g/dl (6.4-8.2)
[2018-01-11] MEDS ORDERED: POTASSIUM CHLORIDE ORAL LIQUID 20 MEQ/15 ML PO ONE (15:10)
--- NOTE | 2018-01-11 16:52 | CONSULT ---
Consult Consult Specialty:: Hematology - History of Present Illness History of Present Illness: 77 year old female with a PMH significant for breast cancer, rheumatoid arthritis, and depression. Admitted for sepsis of uncertain etiology. - History Source History Provided By: Patient, Medical Record - Past Medical History Rheumatology: Yes: Rheumatoid Arthritis - Alcohol/Substance Use Hx Alcohol Use: No - Smoking History Smoking history: Never smoked Home Medications - Allergies Allergies/Adverse Reactions: Allergies Allergy/AdvReac Type Severity Reaction Status Date / Time Penicillins Allergy Severe Difficulty Verified 01/10/18 10:11 Breathing - Home Medications Home Medications: Ambulatory Orders Bupropion HCl [Wellbutrin Xl -] 150 mg PO DAILY 12/26/13 Folic Acid - 1 mg PO DAILY 12/26/13 Sulfasalazine [Sulfazine] 500 mg PO BID 12/26/13 predniSONE [Deltasone -] 5 mg PO DAILY 12/26/13 Atorvastatin Calcium 20 mg PO HS 01/10/18 Calcium Carbonate [Calcium] 600 mg PO DAILY 01/10/18 Certolizumab Pegol [Cimzia] 400 mg SQ Q30D 01/10/18 Duloxetine HCl 30 mg PO BID 01/10/18 Metoclopramide HCl 5 mg PO DAILY 01/10/18 Mirtazapine 7.5 mg PO HS 01/10/18 Omeprazole 40 mg PO DAILY 01/10/18 Ondansetron [Zofran -] 4 mg PO TID 01/10/18 Physical Exam Vital Signs: Vital Signs Temperature 97.9 F 01/11/18 15:22 Pulse Rate 106 H 01/11/18 15:22 Respiratory Rate 20 01/11/18 15:22 Blood Pressure 104/53 01/11/18 15:22 O2 Sat by Pulse Oximetry (%) 98 01/11/18 10:00 Constitutional: Yes: Well Nourished, No Distress, Calm Eyes: Yes: Conjunctiva Clear, EOM Intact HENT: Yes: Atraumatic, Normocephalic Neck: Yes: Supple, Trachea Midline Cardiovascular: Yes: Regular Rate and Rhythm Respiratory: Yes: Regular Gastrointestinal: Yes: Normal Bowel Sounds, Soft Musculoskeletal: Yes: WNL Extremities: Yes: WNL Labs: CBC, BMP 01/11/18 13:00 01/11/18 13:00 Imaging - Results Cat Scan: Report Reviewed Assessment/Plan weight loss: CT c/a/p non-revealing for malignancy likely need other causes to be ruled out check serologies remote hx of breast cancer: in remission as per pt. worsening ILD: per rheum/Pulm total protein wnl routine labs check flow for leucoytosis. Anemia w/u. will follow
--- NOTE | 2018-01-11 19:25 | CON.CARD ---
Consult Consult Specialty:: cardiology - History of Present Illness History of Present Illness: This 77-year-old female who is speaking only presents to the emergency room with her daughter who is translating. According to the daughter the patient has been having a fever, nausea, vomiting 2 days. She's been having chills and yesterday was noted to have a fever of 102. She took Motrin and the fever came down however she was been lying around. She has been under the care of Dr. Nugent since June for GI problems and some gallstones according to the daughter. She was recently at Dr. Nugent's office and after calling him today about the fever chills and nausea and vomiting he was concerned to have her being sent in for further evaluation. She has had a weight loss of over 35 pounds in the last 6 months. Chief Compliant: Fever, nausea, vomiting PMH: Breast cancer, depression, rheumatoid arthritis FH: Pt has not recently traveled outside the country in the last 30 days. Pt has not been in contact with people who have traveled out of the country, in contact with people who have been ill with fever, n, v, d. - Past Medical History Rheumatology: Yes: Rheumatoid Arthritis - Alcohol/Substance Use Hx Alcohol Use: No - Smoking History Smoking history: Never smoked Home Medications - Allergies Allergies/Adverse Reactions: Allergies Allergy/AdvReac Type Severity Reaction Status Date / Time Penicillins Allergy Severe Difficulty Verified 01/10/18 10:11 Breathing - Home Medications Home Medications: Ambulatory Orders Bupropion HCl [Wellbutrin Xl -] 150 mg PO DAILY 12/26/13 Folic Acid - 1 mg PO DAILY 12/26/13 Sulfasalazine [Sulfazine] 500 mg PO BID 12/26/13 predniSONE [Deltasone -] 5 mg PO DAILY 12/26/13 Atorvastatin Calcium 20 mg PO HS 01/10/18 Calcium Carbonate [Calcium] 600 mg PO DAILY 01/10/18 Certolizumab Pegol [Cimzia] 400 mg SQ Q30D 01/10/18 Duloxetine HCl 30 mg PO BID 01/10/18 Metoclopramide HCl 5 mg PO DAILY 01/10/18 Mirtazapine 7.5 mg PO HS 01/10/18 Omeprazole 40 mg PO DAILY 01/10/18 Ondansetron [Zofran -] 4 mg PO TID 01/10/18 Vital Signs: Vital Signs Temperature 98.2 F 01/11/18 18:36 Pulse Rate 103 H 01/11/18 18:36 Respiratory Rate 20 01/11/18 18:36 Blood Pressure 98/55 01/11/18 18:36 O2 Sat by Pulse Oximetry (%) 98 01/11/18 10:00 - Other Data Labs, Other Data: CBC, BMP 01/11/18 13:00 01/11/18 13:00 INR, PTT INR 1.34 (0.82-1.09) H 01/10/18 11:15
[2018-01-11] MEDS ORDERED: PT OWN MED DRAWER 7, Y5N ONE (21:47)
[2018-01-11] MEDS: MIRTAZAPINE 15 MG TABLET (FP) PO SCH (21:49)
[2018-01-11] MEDS: ATORVASTATIN CA 20 MG TABLET (FP) PO SCH (21:50)
[2018-01-12] MEDS: METOCLOPRAMIDE HCL INJECTION 10 MG/2 ML VIAL IVPB SCH ×3 (02:31→17:17)
[2018-01-12] MEDS: HEPARIN NA (PORCINE) 5,000 UNITS/ML 1ML VIAL SQ SCH ×3 (06:59→21:09)
[2018-01-12 07:53] LABS: BASO % 0.3 % (0-2.0); EOS % 0.7 % (0-4.5); HEMATOCRIT 24.5 % (32.4-45.2); HEMOGLOBIN 8.3 GM/dL (10.7-15.3); MCH 32.6 pg (25.7-33.7); MCHC 33.8 g/dl (32.0-36.0); MEAN CELL VOLUME 96.6 fl (80-96); MEAN PLT VOLUME 7.6 fl (7.5-11.1); MONO % 9.3 % (3.8-10.2); NEUT % 80.7 % (42.8-82.8); PLATELET COUNT 315 K/MM3 (134-434); RBC 2.53 M/mm3 (3.60-5.2); RDW 14.5 % (11.6-15.6); WHITE BLOOD COUNT 12.1 K/mm3 (4.0-10.0)
[2018-01-12 08:40] LABS: CHLORIDE 105 mmol/L (98-107); SODIUM 140 mmol/L (136-145)
[2018-01-12 08:52] LABS: ALBUMIN 2.3 g/dl (3.4-5.0); ALK PHOS 158 U/L (45-117); ANION GAP 8 (8-16); BILIRUBIN,TOTAL 0.3 mg/dL (0.2-1.0); BLOOD UREA NITROGEN 3 mg/dL (7-18); CALCIUM 7.4 mg/dL (8.5-10.1); CO2 27 mmol/L (21-32); CREATININE 0.3 mg/dL (0.55-1.02); GLUCOSE,RANDOM 79 mg/dL (74-106); LDH 135 U/L (84-246); SGOT/AST 11 U/L (15-37); SGPT/ALT 12 U/L (12-78); TOT PROT 5.6 g/dl (6.4-8.2)
[2018-01-12 09:30] LABS: POTASSIUM 2.9 mmol/L (3.5-5.1)
--- NOTE | 2018-01-12 09:38 | PN ---
Physical Exam: SUBJECTIVE: Patient seen and examined. She says she feels well, she has returned to her baseline. OBJECTIVE: Vital Signs Period Temp Pulse Resp BP Sys/Duffy Pulse Ox Last 24 Hr 97.9 F-98.4 F 91-106 18-20 90-114/44-60 98-99 PE Neuro: alert, awake, cn 2-12intact Pulm: CTA anteriorly CV: s1 s2 rrr no mrg Abd: s nt nd + bs Ext: no le edema, warm MSK: DIP changes, notable clavicles Laboratory Results - last 24 hr 01/11/18 01/11/18 01/12/18 13:00 13:00 06:20 WBC 20.8 H 12.1 H D RBC 3.05 L 2.53 L Hgb 9.9 L 8.3 L D Hct 29.9 L 24.5 L D MCV 97.9 H 96.6 H MCH 32.5 32.6 MCHC 33.2 33.8 RDW 14.1 14.5 Plt Count 320 315 MPV 7.5 7.6 Neutrophils % 94.3 H D 80.7 Lymphocytes % 2.0 L D 9.0 D Monocytes % 3.5 L 9.3 D Eosinophils % 0.1 D 0.7 D Basophils % 0.1 0.3 Retic Count Sodium 137 Potassium 3.2 L Chloride 100 Carbon Dioxide 25 Anion Gap 12 BUN 5 L Creatinine 0.4 L Creat Clearance w eGFR > 60 Random Glucose 115 H Calcium 8.2 L Ferritin Total Bilirubin 0.5 AST 17 ALT 11 L Alkaline Phosphatase 210 H LD Total Total Protein 6.6 Albumin 2.6 L Vitamin B12 Serum Folate 01/12/18 01/12/18 01/12/18 06:20 06:20 06:20 WBC RBC Hgb Hct MCV MCH MCHC RDW Plt Count MPV Neutrophils % Lymphocytes % Monocytes % Eosinophils % Basophils % Retic Count 0.94 Sodium 140 Potassium 2.9 L* Chloride 105 Carbon Dioxide 27 Anion Gap 8 BUN 3 L Creatinine 0.3 L Creat Clearance w eGFR > 60 Random Glucose 79 Calcium 7.4 L Ferritin 338.283 H Total Bilirubin 0.3 D AST 11 L ALT 12 Alkaline Phosphatase 158 H LD Total 135 Total Protein 5.6 L Albumin 2.3 L Vitamin B12 Serum Folate 15 01/12/18 01/12/18 01/12/18 06:20 06:20 06:20 Iron Pending TIBC Pending Iron Saturation Pending Ferritin 338.283 H Vitamin B12 1155 H Serum Folate 15 Active Medications Generic Name Dose Route Start Last Admin Trade Name Lopez PRN Reason Stop Dose Admin Atorvastatin Calcium 20 mg 01/10/18 22:00 01/11/18 21:50 Lipitor - PO 20 mg HS JOSE Administration Bupropion HCl 150 mg 01/11/18 10:00 01/11/18 10:18 Wellbutrin Xl - PO 150 mg DAILY JOSE Administration Duloxetine HCl 30 mg 01/10/18 22:00 01/11/18 21:50 Cymbalta - PO 30 mg BID JOSE Administration Folic Acid 1 mg 01/11/18 10:00 01/11/18 10:18 Folic Acid - PO 1 mg DAILY JOSE Administration Heparin Sodium (Porcine) 5,000 unit 01/11/18 14:00 01/12/18 06:59 Heparin - SQ 5,000 unit TID JOSE Administration Dextrose/Sodium Chloride 1,000 mls @ 83 mls/hr 01/10/18 18:30 01/11/18 21:50 D5-Ns - IV 83 mls/hr ASDIR JOSE Administration Metronidazole 500 mg in 100 mls @ 100 mls/hr 01/10/18 19:45 01/12/18 02:30 Flagyl 500mg Premixed Ivpb - IVPB 100 mls/hr Q8H-IV JOSE Administration Levofloxacin 500 mg in 100 mls @ 100 mls/hr 01/11/18 10:00 01/11/18 10:17 Levaquin 500 Mg Premixed Ivpb - IVPB 100 mls/hr DAILY JOSE Administration Metoclopramide HCl 5 mg 01/10/18 19:45 01/12/18 02:31 Reglan Injection - IVPB 5 mg Q8H-IV JOSE Administration Mirtazapine 7.5 mg 01/10/18 22:00 01/11/18 21:49 Remeron - PO 7.5 mg HS JOSE Administration Pantoprazole Sodium 40 mg 01/11/18 10:00 01/11/18 11:35 Protonix - PO 40 mg DAILY JOSE Administration Potassium Chloride 40 meq 01/12/18 09:36 Potassium Chloride Oral Liquid PO 01/12/18 09:37 ONCE ONE Potassium Chloride 20 meq 01/12/18 14:00 Potassium Chloride Oral Liquid PO 01/12/18 14:01 ONCE ONE Prednisone 5 mg 01/11/18 10:00 01/11/18 10:18 Deltasone - PO 5 mg DAILY JOSE Administration Microbiology 01/10/18 11:15 Blood Culture - Preliminary Blood - Peripheral Venous NO GROWTH OBTAINED AFTER 24 HOURS, INCUBATION TO CONTINUE FOR 4 DAYS. 01/10/18 11:15 Blood Culture - Preliminary Blood - Peripheral Venous NO GROWTH OBTAINED AFTER 24 HOURS, INCUBATION TO CONTINUE FOR 4 DAYS. 01/10/18 11:15 Urine Culture - Final Urine - Urine Clean Catch Contaminated: Please Repeat Imaging 04/06/17 US abdomen: gallbladder normal and free of calculi, no intra or extrhepatic biliary duct dilatation; normal study 01/10/17 CTAP: extensive chronic interstitial lung disease; mild diffuse air- filled colonic distension, may be an ileus - US w partially thickened GB, no stones, otherwise unremarkable Assessment: 77 year old female with a PMH significant for breast cancer, rheumatoid arthritis, and depression. Admitted for sepsis of uncertain etiology. Plan: 1. Sepsis of uncertain etiology - WBC improving - Advance to low fiber diet - IV zofran and reglan - Continue levaquin/flagyl - Appears improved - Can follow up with GI as out pt 2. Chronic interstitial lung disease vs other rheumatologic etiology - PFTs as outpt - Rheumatology consulted 3. RA - On prednisone 5mg daily - Hold DMARDS (cimzia) for 1 week - Discussed with Dr. Brenna leavitt for one week and call him next Monday for up date, at that time decision will be made when to restart 4. r/o UTI - Repeat cx pending 5. Depression - Cymbalta, wellbutrin, remeron 6. Breast cancer, remote hx - Pt in remission - R/o other etiologies for weight loss, - Anemia work up, spep ordered 7. Hypokalemia - Replete 40meq now 20meq in 4 hrs - Stop fluids 8. DVT ppx - Heparin sq - PT 9. Severe malnutrition - Weight loss, protruding, prominent bone - Weight loss since 06/2017, bmi 16.6kg - Add ensure - Will consider stimulant Visit type - Emergency Visit Emergency Visit: Yes ED Registration Date: 01/10/18 Care time: The patient presented to the Emergency Department on the above date and was hospitalized for further evaluation of their emergent condition. - New Patient This patient is new to me today: No - Critical Care Critical Care patient: No
[2018-01-12] MEDS: DULoxetine HCL 30 MG CAPSULE.DR (FP) PO SCH ×2 (09:48→21:04)
[2018-01-12] MEDS: FOLIC ACID 1 MG TABLET (FP) PO SCH (09:48)
[2018-01-12] MEDS: PANTOPRAZOLE 40 MG TABLET (FP) PO SCH (09:48)
[2018-01-12] MEDS: predniSONE 5 MG TABLET (UD) PO SCH (09:48)
[2018-01-12] MEDS ORDERED: POTASSIUM CHLORIDE ORAL LIQUID 20 MEQ/15 ML PO ONE ×2 (10:00→14:00)
--- NOTE | 2018-01-12 10:34 | PN ---
Progress Note, Physician History of Present Illness: This 77-year-old female who is speaking only presents to the emergency room with her daughter who is translating. According to the daughter the patient has been having a fever, nausea, vomiting 2 days. She's been having chills and yesterday was noted to have a fever of 102. She took Motrin and the fever came down however she was been lying around. She has been under the care of Dr. Nugent since June for GI problems and some gallstones according to the daughter. She was recently at Dr. Nugent's office and after calling him today about the fever chills and nausea and vomiting he was concerned to have her being sent in for further evaluation. She has had a weight loss of over 35 pounds in the last 6 months. Chief Compliant: Fever, nausea, vomiting PMH: Breast cancer, depression, rheumatoid arthritis FH: Pt has not recently traveled outside the country in the last 30 days. Pt has not been in contact with people who have traveled out of the country, in contact with people who have been ill with fever, n, v, d. - Current Medication List Current Medications: Active Medications Atorvastatin Calcium (Lipitor -) 20 mg PO HS [facility] Last Admin: 01/11/18 21:50 Dose: 20 mg Bupropion HCl (Wellbutrin Xl -) 150 mg PO DAILY [facility] Last Admin: 01/12/18 09:48 Dose: 150 mg Duloxetine HCl (Cymbalta -) 30 mg PO BID [facility] Last Admin: 01/12/18 09:48 Dose: 30 mg Folic Acid (Folic Acid -) 1 mg PO DAILY [facility] Last Admin: 01/12/18 09:48 Dose: 1 mg Heparin Sodium (Porcine) (Heparin -) 5,000 unit SQ TID [facility] Last Admin: 01/12/18 06:59 Dose: 5,000 unit Metronidazole (Flagyl 500mg Premixed Ivpb -) 500 mg in 100 mls @ 100 mls/hr IVPB Q8H-IV [facility] Last Admin: 01/12/18 09:47 Dose: 100 mls/hr Levofloxacin (Levaquin 500 Mg Premixed Ivpb -) 500 mg in 100 mls @ 100 mls/hr IVPB DAILY [facility] Last Admin: 01/12/18 09:47 Dose: 100 mls/hr Metoclopramide HCl (Reglan Injection -) 5 mg IVPB Q8H-IV [facility] Last Admin: 01/12/18 09:48 Dose: 5 mg Mirtazapine (Remeron -) 7.5 mg PO HS [facility] Last Admin: 01/11/18 21:49 Dose: 7.5 mg Pantoprazole Sodium (Protonix -) 40 mg PO DAILY [facility] Last Admin: 01/12/18 09:48 Dose: 40 mg Potassium Chloride (Potassium Chloride Oral Liquid) 20 meq PO ONCE ONE Stop: 01/12/18 14:01 Prednisone (Deltasone -) 5 mg PO DAILY [facility] Last Admin: 01/12/18 09:48 Dose: 5 mg - Objective Vital Signs: Vital Signs Temperature 98.4 F 01/12/18 06:11 Pulse Rate 98 H 01/12/18 06:11 Respiratory Rate 20 01/12/18 06:11 Blood Pressure 100/44 01/12/18 06:11 O2 Sat by Pulse Oximetry (%) 99 01/11/18 20:50 Eyes: Yes: WNL, Conjunctiva Clear, EOM Intact HENT: Yes: WNL, Atraumatic, Normocephalic Neck: Yes: WNL, Supple, Trachea Midline Cardiovascular: Yes: WNL, Regular Rate and Rhythm Respiratory: Yes: WNL, Regular, CTA Bilaterally Gastrointestinal: Yes: WNL, Normal Bowel Sounds Genitourinary: Yes: WNL Musculoskeletal: Yes: WNL Extremities: Yes: WNL Edema: No Integumentary: Yes: WNL Neurological: Yes: WNL, Alert, Oriented ...Motor Strength: WNL Psychiatric: Yes: WNL Labs: CBC, BMP 01/12/18 06:20 01/12/18 06:20 INR, PTT INR 1.34 (0.82-1.09) H 01/10/18 11:15 Problem List - Problems (1) Abdominal pain Code(s): R10.9 - UNSPECIFIED ABDOMINAL PAIN Qualifiers: Abdominal location: epigastric Qualified Code(s): R10.13 - Epigastric pain (2) Bronchiectasis Code(s): J47.9 - BRONCHIECTASIS, UNCOMPLICATED (3) COPD not affecting current episode of care Code(s): J44.9 - CHRONIC OBSTRUCTIVE PULMONARY DISEASE, UNSPECIFIED (4) Cholelithiasis and acute cholecystitis without obstruction Code(s): K80.00 - CALCULUS OF GALLBLADDER W ACUTE CHOLECYST W/O OBSTRUCTION (5) Interstitial lung disease Code(s): J84.9 - INTERSTITIAL PULMONARY DISEASE, UNSPECIFIED (6) Rheumatoid arthritis Code(s): M06.9 - RHEUMATOID ARTHRITIS, UNSPECIFIED (7) Urinary tract infection Code(s): N39.0 - URINARY TRACT INFECTION, SITE NOT SPECIFIED Qualifiers: Urinary tract infection type: acute cystitis Hematuria presence: with hematuria Qualified Code(s): N30.01 - Acute cystitis with hematuria (8) Nasal bone fracture Code(s): S02.2XXA - FRACTURE OF NASAL BONES, INIT ENCNTR FOR CLOSED FRACTURE Qualifiers: Encounter type: initial encounter Fracture type: closed Qualified Code(s) : S02.2XXA - Fracture of nasal bones, initial encounter for closed fracture Assessment/Plan 77 year old female with a PMH significant for breast cancer, rheumatoid arthritis, and depression. Admitted for sepsis of uncertain etiology. Sepsis of uncertain etiology - Chronic interstitial lung disease vs other rheumatologic etiology - RA - r/o UTI - Depression Breast cancer, remote hx - Hypokalemia - DVT ppx - Heparin sq - PT ECHO to further evaluate will f/u
--- NOTE | 2018-01-12 15:19 | PN ---
Progress Note (short form) - Note Progress Note: Patient seen and examined Offers nos specific complaints Last Vital Signs Temp Pulse Resp BP Pulse Ox 98.0 F 113 H 20 98/49 96 01/12/18 14:43 01/12/18 14:43 01/12/18 14:43 01/12/18 14:43 01/12/18 09:00 HEENT: LEONORA, EOM Intact Oropharynx: No thrush, No mucositis, tongue with decrease papillation Nodes: Without adenopathy Breasts:s/p right mastectomy; left breast without masses Cor: RSR, No murmurs, No gallops Lungs:bilateral rales bases Abd: Soft, Normal bowel sounds, No organomegaly Ext:No significant edema Skin: No rashes, Integument intact CBC, BMP 01/12/18 06:20 01/12/18 06:20 Current Medications Generic Name Dose Route Start Last Admin Trade Name Freq PRN Reason Stop Dose Admin Atorvastatin Calcium 20 mg 01/10/18 22:00 01/11/18 21:50 Lipitor - PO 20 mg HS JOSE Administration Bupropion HCl 150 mg 01/11/18 10:00 01/12/18 09:48 Wellbutrin Xl - PO 150 mg DAILY JOSE Administration Duloxetine HCl 30 mg 01/10/18 22:00 01/12/18 09:48 Cymbalta - PO 30 mg BID JOSE Administration Folic Acid 1 mg 01/11/18 10:00 01/12/18 09:48 Folic Acid - PO 1 mg DAILY JOSE Administration Heparin Sodium (Porcine) 5,000 unit 01/11/18 14:00 01/12/18 13:22 Heparin - SQ 5,000 unit TID JOSE Administration Metronidazole 500 mg in 100 mls @ 100 mls/hr 01/10/18 19:45 01/12/18 09:47 Flagyl 500mg Premixed Ivpb - IVPB 100 mls/hr Q8H-IV JOSE Administration Levofloxacin 500 mg in 100 mls @ 100 mls/hr 01/11/18 10:00 01/12/18 09:47 Levaquin 500 Mg Premixed Ivpb - IVPB 100 mls/hr DAILY JOSE Administration Metoclopramide HCl 5 mg 01/10/18 19:45 01/12/18 09:48 Reglan Injection - IVPB 5 mg Q8H-IV JOSE Administration Mirtazapine 7.5 mg 01/10/18 22:00 01/11/18 21:49 Remeron - PO 7.5 mg HS JOSE Administration Pantoprazole Sodium 40 mg 01/11/18 10:00 01/12/18 09:48 Protonix - PO 40 mg DAILY JOSE Administration Prednisone 5 mg 01/11/18 10:00 01/12/18 09:48 Deltasone - PO 5 mg DAILY JOSE Administration Impression: Anemia- falling Hct Rheumatoid arthritis Hypokalemia Hx of breast ca ?? UTI being treated Plan: Replete K+ GI assessment Screen for hemolysis Recheck urine
[2018-01-12] MEDS ORDERED: MAGNESIUM HYDROX 2400MG/30ML ORAL SUSPENSION 30 ML CUP PO ONE (15:31)
[2018-01-12] MEDS: POLYETHYLENE GLYCOL 3350 119 GM BTL PO SCH (15:38)
--- NOTE | 2018-01-12 16:01 | PN ---
Progress Note, Physician History of Present Illness: PULMONARY ALERT,OOB,SITTING IN CHAIR,+ TORRES,-N/V, - ABD PAIN - Current Medication List Current Medications: Active Medications Atorvastatin Calcium (Lipitor -) 20 mg PO HS [facility] Last Admin: 01/11/18 21:50 Dose: 20 mg Bupropion HCl (Wellbutrin Xl -) 150 mg PO DAILY [facility] Last Admin: 01/12/18 09:48 Dose: 150 mg Duloxetine HCl (Cymbalta -) 30 mg PO BID [facility] Last Admin: 01/12/18 09:48 Dose: 30 mg Folic Acid (Folic Acid -) 1 mg PO DAILY [facility] Last Admin: 01/12/18 09:48 Dose: 1 mg Heparin Sodium (Porcine) (Heparin -) 5,000 unit SQ TID [facility] Last Admin: 01/12/18 13:22 Dose: 5,000 unit Metronidazole (Flagyl 500mg Premixed Ivpb -) 500 mg in 100 mls @ 100 mls/hr IVPB Q8H-IV [facility] Last Admin: 01/12/18 09:47 Dose: 100 mls/hr Levofloxacin (Levaquin 500 Mg Premixed Ivpb -) 500 mg in 100 mls @ 100 mls/hr IVPB DAILY [facility] Last Admin: 01/12/18 09:47 Dose: 100 mls/hr Metoclopramide HCl (Reglan Injection -) 5 mg IVPB Q8H-IV [facility] Last Admin: 01/12/18 09:48 Dose: 5 mg Mirtazapine (Remeron -) 7.5 mg PO [facility] Last Admin: 01/11/18 21:49 Dose: 7.5 mg Pantoprazole Sodium (Protonix -) 40 mg PO DAILY [facility] Last Admin: 01/12/18 09:48 Dose: 40 mg Polyethylene Glycol (Miralax (For Daily Use) -) 17 gm PO DAILY [facility] Last Admin: 01/12/18 15:38 Dose: 17 grams Prednisone (Deltasone -) 5 mg PO DAILY [facility] Last Admin: 01/12/18 09:48 Dose: 5 mg - Objective Vital Signs: Vital Signs Temperature 98.0 F 01/12/18 14:43 Pulse Rate 113 H 01/12/18 14:43 Respiratory Rate 20 01/12/18 14:43 Blood Pressure 98/49 01/12/18 14:43 O2 Sat by Pulse Oximetry (%) 96 01/12/18 09:00 Constitutional: Yes: Calm, Thin Eyes: Yes: WNL HENT: Yes: WNL Neck: Yes: WNL Cardiovascular: Yes: Regular Rate and Rhythm, S1, S2 Respiratory: Yes: Rales (BILATERAL CRACKLES) Gastrointestinal: Yes: Normal Bowel Sounds, Soft Extremities: Yes: WNL Edema: No Labs: CBC, BMP 01/12/18 06:20 01/12/18 06:20 INR, PTT INR 1.34 (0.82-1.09) H 01/10/18 11:15 Assessment/Plan Problem List - Problems (1) Abdominal pain Code(s): R10.9 - UNSPECIFIED ABDOMINAL PAIN Qualifiers: Abdominal location: epigastric Qualified Code(s): R10.13 - Epigastric pain (2) Urinary tract infection Code(s): N39.0 - URINARY TRACT INFECTION, SITE NOT SPECIFIED Qualifiers: Urinary tract infection type: acute cystitis Hematuria presence: with hematuria Qualified Code(s): N30.01 - Acute cystitis with hematuria (3) Rheumatoid arthritis Code(s): M06.9 - RHEUMATOID ARTHRITIS, UNSPECIFIED (4) Interstitial lung disease Code(s): J84.9 - INTERSTITIAL PULMONARY DISEASE, UNSPECIFIED (5) Bronchiectasis Code(s): J47.9 - BRONCHIECTASIS, UNCOMPLICATED Assessment/Plan Abdominal Pain resolved r/o UTI Rheumatoid Arthritis Interstitial Lung Disease Bronchiectasis Depression h/o Breast Ca - antibiotics - CT findings appear to be chronic in nature but with progression since last year - suspect interstitial lung disease secondary to underlying rheumatologic condition but will need to rule out other causes - rheumatology eval - outpt PFTs and further work up - DVT prophylaxis DR BUTCHER
--- NOTE | 2018-01-12 16:04 | PN ---
GI Progress Note Subjective: patient noted to have severe anemia, no melena and no rectal bleeding, GI procedures done include EGD --gastritis, colonoscopy 2013--scattered diverticula (by Dr Machuca) - Objective Vital Signs: Vital Signs Temperature 98.0 F 01/12/18 14:43 Pulse Rate 113 H 01/12/18 14:43 Respiratory Rate 20 01/12/18 14:43 Blood Pressure 98/49 01/12/18 14:43 O2 Sat by Pulse Oximetry (%) 96 01/12/18 09:00 Labs: CBC, BMP 01/12/18 06:20 01/12/18 06:20 INR, PTT INR 1.34 (0.82-1.09) H 01/10/18 11:15
[2018-01-12] MEDS ORDERED: MAGNESIUM HYDROX 2400MG/30ML ORAL SUSPENSION 30 ML CUP PO PRN (17:21)
[2018-01-12] MEDS: METOCLOPRAMIDE HCL 10 MG TABLET (FP) PO SCH (17:38)
[2018-01-12] MEDS: VITAMIN B COMPLEX W/C COMBO TABLET (FP) PO SCH (18:06)
[2018-01-12] MEDS: metroNIDAZOLE 250 MG TABLET PO SCH (21:04)
[2018-01-12] MEDS: ATORVASTATIN CA 20 MG TABLET (FP) PO SCH (21:05)
[2018-01-12] MEDS: MIRTAZAPINE 15 MG TABLET (FP) PO SCH (21:05)
[2018-01-13] MEDS: METOCLOPRAMIDE HCL 10 MG TABLET (FP) PO SCH ×2 (06:08→11:00)
[2018-01-13] MEDS: metroNIDAZOLE 250 MG TABLET PO SCH (06:08)
[2018-01-13] MEDS: HEPARIN NA (PORCINE) 5,000 UNITS/ML 1ML VIAL SQ SCH (06:08)
[2018-01-13 06:10] LABS: SERUM IRON SATURATION 31 % (15-55); TOTAL IRON BINDING CAPACITY 112 ug/dL (250-450); UIBC 77 ug/dL (118-369)
[2018-01-13 07:46] LABS: BASO % 0.7 % (0-2.0); EOS % 3.1 % (0-4.5); HEMATOCRIT 25.9 % (32.4-45.2); HEMOGLOBIN 9.2 GM/dL (10.7-15.3); LYMPH % 21.9 % (8-40); MCH 34.2 pg (25.7-33.7); MCHC 35.6 g/dl (32.0-36.0); MEAN PLT VOLUME 7.5 fl (7.5-11.1); MONO % 13.9 % (3.8-10.2); NEUT % 60.4 % (42.8-82.8); PLATELET COUNT 357 K/MM3 (134-434); RBC 2.69 M/mm3 (3.60-5.2); RDW 14.3 % (11.6-15.6); WHITE BLOOD COUNT 7.4 K/mm3 (4.0-10.0)
[2018-01-13 07:59] LABS: RETICULOCYTES 0.99 % (0.5-1.5)
[2018-01-13] MEDS: PANTOPRAZOLE 40 MG TABLET (FP) PO SCH (11:00)
[2018-01-13] MEDS: FOLIC ACID 1 MG TABLET (FP) PO SCH (11:00)
[2018-01-13] MEDS: VITAMIN B COMPLEX W/C COMBO TABLET (FP) PO SCH (11:00)
[2018-01-13] MEDS: DULoxetine HCL 30 MG CAPSULE.DR (FP) PO SCH (11:00)
[2018-01-13] MEDS: predniSONE 5 MG TABLET (UD) PO SCH (11:00)
[2018-01-13] MEDS: POLYETHYLENE GLYCOL 3350 119 GM BTL PO SCH (11:00)
[2018-01-13] MEDS ORDERED: PT OWN MED DRAWER 7, Y5N ONE (11:35)
[2018-01-13 12:06] LABS: ALBUMIN 2.4 g/dl (3.4-5.0); ANION GAP 8 (8-16); BILIRUBIN,TOTAL 0.3 mg/dL (0.2-1.0); BLOOD UREA NITROGEN 4 mg/dL (7-18); CALCIUM 7.8 mg/dL (8.5-10.1); CHLORIDE 102 mmol/L (98-107); CO2 27 mmol/L (21-32); CREATININE 0.3 mg/dL (0.55-1.02); GLUCOSE,RANDOM 78 mg/dL (74-106); POTASSIUM 3.6 mmol/L (3.5-5.1); SGOT/AST 14 U/L (15-37); SGPT/ALT 14 U/L (12-78); SODIUM 137 mmol/L (136-145)
[2018-01-13 12:08] LABS: ALK PHOS 184 U/L (45-117); TOT PROT 6.1 g/dl (6.4-8.2)
--- NOTE | 2018-01-13 12:30 | DS ---
Physical Exam: SUBJECTIVE: Patient seen and examined. No acute issues. Did have + BM OBJECTIVE: Vital Signs Period Temp Pulse Resp BP Sys/Duffy Pulse Ox Last 24 Hr 98.0 F-98.5 F 106-113 20-20 98-129/49-67 99 PE Neuro: alert, awake, cn 2-12intact Pulm: CTA anteriorly CV: s1 s2 rrr no mrg Abd: s nt nd + bs Ext: no le edema, warm MSK: DIP changes, notable clavicles Laboratory Results - last 24 hr 01/12/18 01/12/18 01/13/18 06:20 18:30 06:00 WBC RBC Hgb Hct MCV MCH MCHC RDW Plt Count MPV Neutrophils % Lymphocytes % Monocytes % Eosinophils % Basophils % Retic Count 0.99 Sodium Potassium Chloride Carbon Dioxide Anion Gap BUN Creatinine Creat Clearance w eGFR Random Glucose Calcium Iron 35 TIBC 112 L Iron Saturation 31 Total Bilirubin AST ALT Alkaline Phosphatase LD Total Total Protein Albumin Stool Occult Blood Negative Rheumatoid Arth [place] 80.9 H 01/13/18 01/13/18 01/13/18 06:00 06:00 09:10 WBC 7.4 D RBC 2.69 L Hgb 9.2 L D Hct 25.9 L MCV 96.0 MCH 34.2 H MCHC 35.6 RDW 14.3 Plt Count 357 MPV 7.5 Neutrophils % 60.4 D Lymphocytes % 21.9 D Monocytes % 13.9 H Eosinophils % 3.1 D Basophils % 0.7 Retic Count Sodium 137 Potassium 3.6 Chloride 102 Carbon Dioxide 27 Anion Gap 8 BUN 4 L Creatinine 0.3 L Creat Clearance w eGFR > 60 Random Glucose 78 Calcium 7.8 L Iron TIBC Iron Saturation Total Bilirubin 0.3 AST 14 L ALT 14 Alkaline Phosphatase 184 H LD Total 127 Total Protein 6.1 L Albumin 2.4 L Stool Occult Blood Rheumatoid Arth [facility] HOSPITAL COURSE: Date of Admission:01/10/18 Date of Discharge: 01/13/18 Minutes to complete discharge: 37 Discharge Summary Reason For Visit: CHOLELITHIASIS W ACUTE CHOLECYSTITIS Current Active Problems Abdominal pain (Acute) Bronchiectasis (Acute) COPD not affecting current episode of care (Acute) Cholelithiasis and acute cholecystitis without obstruction (Acute) Interstitial lung disease (Acute) Rheumatoid arthritis (Acute) Urinary tract infection (Acute) Hospital Course: Initial Hospital Course: 77 year old female with a PMH significant for breast cancer, rheumatoid arthritis, and depression. Presented with fever, chills, nausea, and vomiting 2 days. Temp at home 102. Patient has been under the care of Dr. Nugent since June 2017 for gallstone-related problems. The daughter stated patient had a HIDA scan last week and Dr. Nugent has results (not in EMR). Patient has lost 35 pounds in the last 5 months. Imaging 04/06/17 US abdomen: gallbladder normal and free of calculi, no intra or extrhepatic biliary duct dilatation; normal study 01/10/17 CTAP: extensive chronic interstitial lung disease; mild diffuse air- filled colonic distension, may be an ileus - US w partially thickened GB, no stones, otherwise unremarkable Subsequent Hospital Course/Progress Note/DC summary: Assessment: 77 year old female with a PMH significant for breast cancer, rheumatoid arthritis, and depression. Admitted for sepsis of uncertain etiology. Plan: 1. Sepsis of uncertain etiology ? UTI - WBC wnl - Tolerating diet - Home with levequin total 7 days - Urine cx no growth - Will stop flagyl - Outpt GI follow up 2. Chronic interstitial lung disease vs other rheumatologic etiology - PFTs as outpt 3. RA - On prednisone 5mg daily - Hold DMARDS (cimzia) for 1 week - Discussed with Dr. Brenna leavitt for one week and call him next Tuesday 01/16 for up date, at that time decision will be made when to restart 4. r/o UTI - Negative 5. Depression - Cymbalta, wellbutrin, remeron 6. Breast cancer, remote hx - Pt in remission - R/o other etiologies for weight loss 7. Anemia - Retic corrected .6 - Hgb on discharge 9.2 - Follow up as outpt - Neg stool occult - GI no further recs - spep serology f/u as outpt 7. Hypokalemia - Resolved 8. Severe malnutrition - Weight loss, protruding, prominent bone - Weight loss since 06/2017, bmi 16.6kg - Ensure Dispo: - Home with above plan and follow up - Meds as listed above Condition: Stable - Instructions Diet, Activity, Other Instructions: Please return to the ED for any new, persistent, or worsening symptoms. Follow up with your PCP in 1 week Hold Cimza for [address] Ceja on Monday for follow up, he will instruct you when to restart Continue medications as directed and until completed Referrals: Chas Ceja MD [Staff Physician] - 01/16/18 (Call Dr. Ceja on Monday to discuss when to restart Cimzia medication. In the mean time hold Cimzia for 1 week ) Janusz Nugent MD [Staff Physician] - 1 Week Amalia Minor MD [Staff Physician] - Luan Hankins MD [Primary Care Provider] - Rosas Guerrero MD, MD [Staff Physician] - 1 Month (interstitial lung disease management ) Disposition: HOME - Home Medications Comprehensive Discharge Medication List: Ambulatory Orders Bupropion HCl [Wellbutrin Xl -] 150 mg PO DAILY 12/26/13 Folic Acid - 1 mg PO DAILY 12/26/13 Sulfasalazine 500 mg PO BID 12/26/13 predniSONE [Deltasone -] 5 mg PO DAILY 12/26/13 Atorvastatin Calcium 20 mg PO HS 01/10/18 Calcium Carbonate [Calcium] 600 mg PO DAILY 01/10/18 Certolizumab Pegol [Cimzia] 400 mg SQ Q30D 01/10/18 Duloxetine HCl 30 mg PO BID 01/10/18 Metoclopramide HCl 5 mg PO DAILY 01/10/18 Mirtazapine 7.5 mg PO HS 01/10/18 Omeprazole 40 mg PO DAILY 01/10/18 Ondansetron [Zofran -] 4 mg PO TID 01/10/18 Levofloxacin [Levaquin] 500 mg PO DAILY #3 tablet 01/13/18 This patient is new to me today: No Emergency Visit: Yes ED Registration Date: 01/10/18 Care time: The patient presented to the Emergency Department on the above date and was hospitalized for further evaluation of their emergent condition. Critical Care patient: No - Discharge Referral Referred to [facility] Med P.C.: No
[2018-01-13 14:15] VITALS: BP 120/49; PULSE 119; TEMP 98.1
[2018-01-14 06:39] LABS: SPECKLED PATTERN >1:1280 (.)
--- NOTE | 2018-01-16 13:27 | PATH ---
Surgical Pathology Report Patient Name: RL COMBS Med. Rec. #: [id number] /Age/Gender: 1940 (Age: 77) / F Account: [id number] Location: [facility] MED/SURG Taken: 01/12/2018 Received: 01/12/2018 Reported: 01/16/2018 Physicians: Amalia Minor M.D. Specimen(s) Received PERIPHERAL BLOOD 2 GREEN TOPS Clinical History Leukocytosis Final Diagnosis COMPREHENS[facility] FL[facility] [place] ([id number]) shows the following: INTERPRETATION: There is no evidence of B or T-cell proliferative disorders or increased blasts. The monocytic cells are 14% of total events. Comment: Correlation with the results of the molecular studies (BCR/ABL-1, JAK2, CALR) is essential in order to assess for peripheral blood involvement by a myeloproliferative process. JAK2 V617F MUTATION ANALYSIS BY PCR performed and interpreted at [place], [place] ([id number]) shows the following: RESULTS: Only the wild-type JAK2 sequence was detected. INTERPRETATION: Negative for JAK2 (V617F) mutation See [facility] report for additional details ([id number] and [id number]). Electronically Signed Allyson Ozuna M.D. Addendum Reported: 01/19/2018 Addendum Diagnosis BCR-ABL Gene Rearrangement (IS) Analysis performed and interpreted at [place], [place] ([id number]) shows the following: RESULTS: Negative BCR/ABL Major breakpoints (b2a2 and b3a2): Not Detected BCR/ABL Minor breakpoint (e1a2): Not Detected INTERPRETATION: No BCR-ABL translocation was detected in this sample. See [facility] report ([id number]) for additional details. Allyson Ozuna M.D. Gross Description Received labelled with the patient's name are 2 green top tubes of peripheral blood which are forwarded to [facility] for ancillary testing. the medical center/01/12/2018
== END 2018-01-13 16:30 | disposition home or self-care (01) | DRG 720 ==
LOC: JER 10:06 → JERBED 16:14 → J4W 17:40 → J7W 20:36
PROVIDERS: ADMIT Internal Medicine; ATTEND Nurse Practitioner Acute Care
DX: A41.9 Sepsis, unspecified organism (principal); J84.9 Interstitial pulmonary disease, unspecified; E88.09 Other disorders of plasma-protein metabolism, not elsewhere classified; F32.9 Major depressive disorder, single episode, unspecified; M06.9 Rheumatoid arthritis, unspecified; N39.0 Urinary tract infection, site not specified; D64.9 Anemia, unspecified; E87.6 Hypokalemia; E43 Unspecified severe protein-calorie malnutrition; Z68.1 Body mass index [BMI] 19.9 or less, adult; J47.9 Bronchiectasis, uncomplicated; Z85.3 Personal history of malignant neoplasm of breast; K56.7 Ileus, unspecified
CPT/HCPCS: 36415; 71045-TC-FY; 71250-TC; 74177-TC; 76705-TC; 80053; 80076; 81003; 81015; 82150; 82272; 82607; 82728; 82746; 82784; 82803; 83010; 83540; 83550; 83605; 83615; 83690; 84155; 84165; 84484; 85025; 85044; 85610; 85651; 85730; 86038; 86334; 86431; 87040; 87045; 87046; 87086; 87186; 87324; 87449; 88300-TC; 93005; 93010; 93306-TC; 99285-25; G0480; J1644; J7030

== ENCOUNTER 2018-06-27 14:06 | Inpatient (IN) | payer OTHER ==
--- NOTE | 2018-06-27 14:13 | PDOC ---
Rapid Medical Evaluation Time Seen by Provider: 06/27/18 14:12 Medical Evaluation: Allergies Allergy/AdvReac Type Severity Reaction Status Date / Time Penicillins Allergy Severe Difficulty Verified 03/30/18 12:00 Breathing 06/27/18 14:12 I have performed a brief in-person evaluation of this patient. The patient presents with a chief complaint of:Hyponatremia on labs last week. + AMS of unclear duration per daughter. Pt admitted for same 03/26 and ultimately admitted to [facility] for FTT and given meds for appetite stimulation per records. H /o breast ca remotely, urosepsis, anemia, RA on prednisone, depression Pertinent physical exam findings:tachy to 113 but well desiree I have ordered the following:labs The patient will proceed to the ED for further evaluation. Discharge Disposition - Diagnosis Hyponatremia Altered mental status Qualifiers: Altered mental status type: unspecified Qualified Code(s): R41.82 - Altered mental status, unspecified - Referrals - Patient Instructions - Post Discharge Activity
[2018-06-27 14:14] VITALS: BMI 19.8
[2018-06-27 15:26] LABS: BASO % 0.4 % (0-2.0); EOS % 0.6 % (0-4.5); HEMATOCRIT 31.5 % (32.4-45.2); HEMOGLOBIN 10.7 GM/dL (10.7-15.3); LYMPH % 7.9 % (8-40); MCH 31.4 pg (25.7-33.7); MCHC 34.1 g/dl (32.0-36.0); MEAN CELL VOLUME 92.1 fl (80-96); MEAN PLT VOLUME 6.4 fl (7.5-11.1); MONO % 4.7 % (3.8-10.2); NEUT % 86.4 % (42.8-82.8); PLATELET COUNT 528 K/MM3 (134-434); RBC 3.42 M/mm3 (3.60-5.2); WHITE BLOOD COUNT 8.7 K/mm3 (4.0-10.0)
[2018-06-27 15:28] LABS: URINE APPEARANCE CLEAR; URINE BILIRUBIN NEGATIVE (<2.0 mg/dL); URINE COLOR DKYELLOW; URINE GLUCOSE (UA) NEGATIVE (NEGATIVE); URINE KETONE NEGATIVE (NEGATIVE); URINE LEUK ESTERASE TRACE (NEGATIVE); URINE NITRITE NEGATIVE (NEGATIVE); URINE PROTEIN NEGATIVE (NEGATIVE); URINE UROBILINOGEN NEGATIVE mg/dL (0.2-1.0)
[2018-06-27 15:31] LABS: EPI CELLS RARE /HPF (FEW)
[2018-06-27 15:43] LABS: ALBUMIN 3.2 g/dl (3.4-5.0); ANION GAP 6 MMOL/L (8-16); BLOOD UREA NITROGEN 7 mg/dL (7-18); CALCIUM 8.6 mg/dL (8.5-10.1); CHLORIDE 91 mmol/L (98-107); CO2 31 mmol/L (21-32); CREATININE 0.4 mg/dL (0.55-1.3); GLUCOSE,RANDOM 101 mg/dL (74-106); SGPT/ALT 43 U/L (13-61); SODIUM 128 mmol/L (136-145)
[2018-06-27 15:46] LABS: ALK PHOS 231 U/L (45-117); BILIRUBIN,TOTAL 0.2 mg/dL (0.2-1); TOT PROT 8.4 g/dl (6.4-8.2)
[2018-06-27 15:49] LABS: POTASSIUM 4.5 mmol/L (3.5-5.1)
[2018-06-27 15:50] LABS: SGOT/AST 41 U/L (15-37)
[2018-06-27] MEDS ORDERED: SODIUM CHLORIDE 1,000 ML IV SCH ×2 (16:45→23:45)
--- NOTE | 2018-06-27 20:38 | PDOC ---
History of Present Illness - General Chief Complaint: Lightheaded Stated Complaint: LOW SODIUM COUNT Time Seen by Provider: 06/27/18 14:12 History Source: Patient, Ent Consultant Used Exam Limitations: Language Barrier - History of Present Illness Initial Comments: 06/27/18 20:33 78-year-old female, Turkmen-speaking, history return arthritis, pulmonary fibrosis, depression presents to the ER with chief complaint of dizziness and lightheadedness for the past several days that has worsened shortly prior to arrival. Patient reports the symptoms as nonvertiginous. Patient denies chest pain or shortness of breath/nausea/vomiting/diarrhea melena bright red blood per rectum. Patient was evaluated by her primary care physician 48 hours previously was diagnosed with hyponatremia of 122 and referred to the ER for further evaluation and treatment. Patient reports previous history of mild hyponatremia. REVIEW OF SYSTEMS CONSTITUTIONAL: No fever, no chills, no fatigue EYES: No visual changes ENT: No ear pain, no sore throat CARDIOVASCULAR: No chest pain, no palpitations RESPIRATORY: No cough, no SOB GI: No abdominal pain, no nausea, no vomiting, no constipation, no diarrhea GENITOURINARY: No dysuria, no frequency, no hematuria MUSKULOSKELETAL: No backpain, + diffuse joint pain/deformity, no myalgias SKIN: No rash NEURO: No headache; lightheadedness EXAMINATION CONSTITUTIONAL: Patient is awake and alert, frail-appearing,; in no apparent distress HEAD: Normocephalic; atraumatic EYES: PERRL; EOM intact; conjunctiva are pink; there is no nystagmus ENMT: External appears normal; mm-dry NECK: Supple; non-tender; no cervical lymphadenopathy CARD: Normal S1, S2; no murmurs, rubs, or gallops RESP: Normal chest excursion with respiration; diffuse rhonchi are noted bilaterally in all lung gonzalez; + left mastectomy scar ABD: Soft, non-distended; non-tender; no palpable organomegaly, no palpable hernias EXT: + Bilateral hand deformity with [facility] flexion and ulnar deviation is noted bilaterally non-tender to palpation; distal pulses intact SKIN: Warm, dry, no rash NEURO: No focal neurological deficiencies. Past History - Past Medical History Allergies/Adverse Reactions: Allergies Allergy/AdvReac Type Severity Reaction Status Date / Time Penicillins Allergy Severe Difficulty Verified 06/27/18 14:14 Breathing Home Medications: Ambulatory Orders Atorvastatin Ca [Lipitor] 20 mg PO HS 03/30/18 Bupropion HCl [Wellbutrin Sr] 150 mg PO DAILY 03/30/18 Calcium Carbonate [Calcium] 600 mg PO DAILY 03/30/18 Duloxetine HCl 30 mg PO BID 03/30/18 Folic Acid 1 mg PO DAILY 03/30/18 Metoclopramide HCl 5 mg PO DAILY 03/30/18 Mirtazapine [Remeron -] 22.5 mg PO HS 03/30/18 Omeprazole 40 mg PO DAILY 03/30/18 Ondansetron HCl 4 mg PO AC 03/30/18 Prednisone 5 mg PO DAILY 03/30/18 Sulfasalazine [Azulfidine -] 1,000 mg PO BID 03/30/18 Albuterol 0.083% Nebulizer Hanny [Ventolin 0.083% Nebulizer Soln -] 1 amp NEB Q4H PRN amp 04/06/18 Megestrol Acetate Oral Susp [Megace Oral Suspension -] 400 mg PO DAILY cup Nystatin Oral Suspension - [Nystatin Oral Susp 556550 Units/5 ML -] 500,000 units PO Q6HPO cup 04/06/18 Sennosides [Senna -] 2 tab PO HS PRN tablet 04/06/18 Anemia: No Asthma: No Cancer: Yes (BREAST) Cardiac Disorders: No CVA: No COPD: No CHF: No DVT: No Dementia: No Diabetes: No GI Disorders: No Disorders: No HTN: Yes Hypercholesterolemia: Yes Liver Disease: No Psychiatric Problems: Yes (DEPRESSION) Seizures: No Thyroid Disease: No - Surgical History Appendectomy: No Cardiac Surgery: No Cholecystectomy: No Lung Surgery: No Neurologic Surgery: Yes ("FUSION OF SPINAL BONES") Orthopedic Surgery: No - Immunization History Immunization Up to Date: Yes - Suicide/Smoking/Psychosocial Hx Smoking History: Never smoked Have you smoked in the past 12 months: No Information on smoking cessation initiated: No Hx Alcohol Use: Yes (wine every couple/few months) Drug/Substance Use Hx: No Substance Use Type: None Hx Substance Use Treatment: No *Physical Exam - Vital Signs Last Vital Signs Temp Pulse Resp BP Pulse Ox 98.4 F 80 16 117/65 97 06/27/18 14:10 06/27/18 19:59 06/27/18 19:59 06/27/18 14:10 06/27/18 19:59 Heart Score/ECG Review - ECG Intrepretation Comment:: 06/27/18 20:36 108, sinus tachycardia with APCs, left internal fascicular block, voltage criteria for LVH by lead aVL, no ST-T abnormalities, abnormal EKG. ED Treatment Course - LABORATORY CBC & Chemistry Diagram: 06/27/18 15:16 06/27/18 22:43 - ADDITIONAL ORDERS Additional order review: Laboratory Results 06/27/18 06/27/18 06/27/18 15:16 15:16 15:00 Sodium 128 L Potassium 4.5 Chloride 91 L Carbon Dioxide 31 Anion Gap 6 L BUN 7 Creatinine 0.4 L Creat Clearance w eGFR > 60 Random Glucose 101 Serum Osmolality 266 L Calcium 8.6 Total Bilirubin 0.2 AST 41 H ALT 43 Alkaline Phosphatase 231 H Creatine Kinase 66 Troponin I < 0.02 Total Protein 8.4 H Albumin 3.2 L TSH 2.78 Urine Color Dkyellow Urine Appearance Clear Urine pH 7.0 Ur Specific [place] 1.009 Urine Protein Negative Urine Glucose (UA) Negative Urine Ketones Negative Urine Blood 1+ H Urine Nitrite Negative Urine Bilirubin Negative Urine Urobilinogen Negative Ur Leukocyte Esterase Trace Urine WBC (Auto) 3 Urine RBC (Auto) 1 Ur Epithelial Cells Rare 06/27/18 15:16 RBC 3.42 L MCV 92.1 MCHC 34.1 RDW 14.0 MPV 6.4 L D Neutrophils % 86.4 H D Lymphocytes % 7.9 L D Monocytes % 4.7 Eosinophils % 0.6 Basophils % 0.4 Medical Decision Making - Medical Decision Making 06/27/18 20:38 Patient is a frail-appearing 78-year-old female with history of rheumatoid arthritis, pulmonary fibrosis on depression who presents with symptomatic hyponatremia. Patient's serum osmolalities also noted to be low. Differential diagnosis includes hyperthyroidism versus iatrogenic versus paraneoplastic syndrome. Will initiate normal saline infusion at 75 mL an hour. Will order free fluid restriction at this time. Will place and of. *DC/Admit/Observation/Transfer Diagnosis at time of Disposition: Hyponatremia Altered mental status Qualifiers: Altered mental status type: unspecified Qualified Code(s): R41.82 - Altered mental status, unspecified - Discharge Dispostion Condition at time of disposition: Fair Decision to Admit order: Yes - Referrals - Patient Instructions - Post Discharge Activity
--- NOTE | 2018-06-27 22:00 | HP ---
CHIEF COMPLAINT: hyponatremia PCP: Dr. Chow HISTORY OF PRESENT ILLNESS: 78 y/o female with PMH of breast ca (s/p L mastectomy 13 years ago), RA on prednisone, interstitial lung disease, depression, cholethiasis, presents to the ED with complaints of dizziness/weakness/headaches for the past few days. Patient was seen by her PCP 48 ours earlier and was found to be hyponatremic to 122. Of note, she had a previous admission back in March at this hospital for similar complaints, at that time was found to be hyponatremic at 131. After that admission patient was sent to [facility] for malnutrition/failure to thrive. After being discharged from there, patient went back home to live with her daughter and was doing ok- however, lately she has not been feeling herself. She gets lightheaded often and her appetite has severely diminished. She has had about a 40 pound weight loss over a 4 month span. she denies however any CP/SOB/fevers or chills. ER course was notable for: (1) afebrile; HR 113; BP 117/65 RR 16 (2)sodium was 128; (3) given 1L of NS @75 mls/hr Recent Travel: none PAST MEDICAL HISTORY: see HPI PAST SURGICAL HISTORY: L mastectomy, c3-c6 fusion, Social History: Smoking:denies Alcohol:denies Drugs: denies Family History: mother breast ca and DM; father DM and HTN Allergies Penicillins Allergy (Severe, Verified 06/27/18 14:14) Difficulty Breathing HOME MEDICATIONS: Home Medications Medication Instructions Recorded Atorvastatin Ca [Lipitor] 20 mg PO HS 03/30/18 Bupropion HCl [Wellbutrin Sr] 150 mg PO DAILY 03/30/18 Calcium Carbonate [Calcium] 600 mg PO DAILY 03/30/18 Duloxetine HCl 30 mg PO BID 03/30/18 Folic Acid 1 mg PO DAILY 03/30/18 Metoclopramide HCl 5 mg PO DAILY 03/30/18 Mirtazapine [Remeron -] 22.5 mg PO HS 03/30/18 Omeprazole 40 mg PO DAILY 03/30/18 Ondansetron HCl 4 mg PO AC 03/30/18 Prednisone 5 mg PO DAILY 03/30/18 Sulfasalazine [Azulfidine -] 1,000 mg PO BID 03/30/18 Albuterol 0.083% Nebulizer Hanny 1 amp NEB Q4H PRN amp 04/06/18 [Ventolin 0.083% Nebulizer Soln -] Megestrol Acetate Oral Susp 400 mg PO DAILY cup 04/06/18 [Megace Oral Suspension -] Nystatin Oral Suspension - 500,000 units PO Q6HPO cup 04/06/18 [Nystatin Oral Susp 105150 Units/5 ML -] Sennosides [Senna -] 2 tab PO HS PRN tablet 04/06/18 REVIEW OF SYSTEMS CONSTITUTIONAL: Present: generalized weakness, malaise, loss of appetite, weight change Absent: fever, chills, diaphoresis, HEENT: Absent: rhinorrhea, nasal congestion, throat pain, throat swelling, difficulty swallowing, mouth swelling, ear pain, eye pain, visual changes CARDIOVASCULAR: Absent: chest pain, syncope, palpitations, irregular heart rate, lightheadedness , peripheral edema RESPIRATORY: Absent: cough, shortness of breath, dyspnea with exertion, orthopnea, wheezing, stridor, hemoptysis GASTROINTESTINAL: Absent: abdominal pain, abdominal distension, nausea, vomiting, diarrhea, constipation, melena, hematochezia GENITOURINARY: Absent: dysuria, frequency, urgency, hesitancy, hematuria, flank pain, genital pain MUSCULOSKELETAL: Present:arthralgia Absent: myalgia, joint swelling, back pain, neck pain SKIN: Absent: rash, itching, pallor HEMATOLOGIC/IMMUNOLOGIC: Absent: easy bleeding, easy bruising, lymphadenopathy, frequent infections ENDOCRINE: Absent: unexplained weight gain, unexplained weight loss, heat intolerance, cold intolerance NEUROLOGIC: Present:dizziness, Absent: headache, focal weakness or paresthesias, unsteady gait, seizure, mental status changes, bladder or bowel incontinence PSYCHIATRIC: Absent: anxiety, depression, suicidal or homicidal ideation, hallucinations. PHYSICAL EXAMINATION Vital Signs - 24 hr 06/27/18 06/27/18 06/27/18 14:10 17:00 19:59 Temperature 98.4 F Pulse Rate 113 H Pulse Rate [ 80 Right] Respiratory 18 16 Rate Blood Pressure 117/65 O2 Sat by Pulse 97 97 97 Oximetry (%) GENERAL: Awake, alert, and fully oriented, in no acute distress. HEAD: Normal with no signs of trauma. NECK:no JVD appreciated . LUNGS: coarse breath sounds and rhonchi B/L (especially at the bases) HEART: Regular rate and rhythm, normal S1 and S2 without murmur, rub or gallop. ABDOMEN: Soft, nontender, not distended, normoactive bowel sounds, no guarding, no rebound, no masses. No hepatomegaly or splenomegaly. MUSCULOSKELETAL: Normal range of motion at all joints. No bony deformities or tenderness. No CVA tenderness. EXTREMITIES: warm; well-perfused no clubbing/cyanosis/edema PSYCHIATRIC: Cooperative. Good eye contact. Appropriate mood and affect. SKIN: Warm, dry, normal turgor, no rashes or lesions noted, normal capillary refill. Laboratory Results - last 24 hr 06/27/18 06/27/18 06/27/18 15:00 15:16 15:16 WBC 8.7 RBC 3.42 L Hgb 10.7 Hct 31.5 L MCV 92.1 MCH 31.4 MCHC 34.1 RDW 14.0 Plt Count 528 H D MPV 6.4 L D Absolute Neuts (auto) 7.5 Neutrophils % 86.4 H D Lymphocytes % 7.9 L D Monocytes % 4.7 Eosinophils % 0.6 Basophils % 0.4 Nucleated RBC % 0 Sodium 128 L Potassium 4.5 Chloride 91 L Carbon Dioxide 31 Anion Gap 6 L BUN 7 Creatinine 0.4 L Creat Clearance w eGFR > 60 Random Glucose 101 Serum Osmolality Calcium 8.6 Total Bilirubin 0.2 AST 41 H ALT 43 Alkaline Phosphatase 231 H Creatine Kinase 66 Troponin I < 0.02 Total Protein 8.4 H Albumin 3.2 L TSH Urine Color Dkyellow Urine Appearance Clear Urine pH 7.0 Ur Specific [place] 1.009 Urine Protein Negative Urine Glucose (UA) Negative Urine Ketones Negative Urine Blood 1+ H Urine Nitrite Negative Urine Bilirubin Negative Urine Urobilinogen Negative Ur Leukocyte Esterase Trace Urine WBC (Auto) 3 Urine RBC (Auto) 1 Ur Epithelial Cells Rare 06/27/18 15:16 WBC RBC Hgb Hct MCV MCH MCHC RDW Plt Count MPV Absolute Neuts (auto) Neutrophils % Lymphocytes % Monocytes % Eosinophils % Basophils % Nucleated RBC % Sodium Potassium Chloride Carbon Dioxide Anion Gap BUN Creatinine Creat Clearance w eGFR Random Glucose Serum Osmolality 266 L Calcium Total Bilirubin AST ALT Alkaline Phosphatase Creatine Kinase Troponin I Total Protein Albumin TSH 2.78 Urine Color Urine Appearance Urine pH Ur Specific [place] Urine Protein Urine Glucose (UA) Urine Ketones Urine Blood Urine Nitrite Urine Bilirubin Urine Urobilinogen Ur Leukocyte Esterase Urine WBC (Auto) Urine RBC (Auto) Ur Epithelial Cells ASSESSMENT/PLAN: 78 y/o female with PMH of breast ca (s/p L mastectomy), ILD, RA on prednisone, depression who presents to the ED with complaints of dizziness, weakness and lightheadedness, found to be hyponatremic to 128 on arrival. #Hyponatremia etiology possibly 2/2 to decreased PO intake or due to medication use ( duloextine, mirtazapine) patients serum osmoles were also noted to be low -repeat CMP every 6 hours to avoid overcorrection -gentle IV hydration -restrict free fluid intake -urine NA; FENA, urine osm -mag and phos ordered - diet consult ordered #RA patient follows up with Dr. Ceja -c/w prednisone and sulfasalazine #ILD patient follows up with Dr. Grissom -albuterol nebulizer PRN DVT Prophylaxis: Heparin 5000 SQ TID F/E/N gentle IV hydration- avoid excess free water intake replete electrolytes; CMP q6H regular diet dispo: med-surg obs Problem List - Problem (1) Hyponatremia Code(s): E87.1 - HYPO-OSMOLALITY AND HYPONATREMIA Visit type - Emergency Visit Emergency Visit: Yes ED Registration Date: 06/27/18 Care time: The patient presented to the Emergency Department on the above date and was hospitalized for further evaluation of their emergent condition. - New Patient This patient is new to me today: Yes Date on this admission: 06/28/18 - Critical Care Critical Care patient: No Hospitalist Screening - Colonoscopy Questionnaire Colonoscopy Questionnaire: Colonoscopy Questionnaire - Patient: 50 - 75 years old and never had a screening colonoscopy: Unknown History of colon or rectal polyps, or CA: Unknown History of IBD, Crohn's disease or UC: Unknown History of abdominal radiation therapy as a child: Unknown - Relative: 1 with colon or rectal CA, or polyps at age 60 or younger: Unknown Colon or rectal CA diagnosed at age 45 or younger: Unknown Multiple relatives with colon or rectal CA: Unknown - Outcome: Screening Result: Negative Screen
[2018-06-27] MEDS ORDERED: HEPARIN NA (PORCINE) 5,000 UNITS/ML 1ML VIAL ONE (22:02)
[2018-06-27] MEDS: HEPARIN NA (PORCINE) 5,000 UNITS/ML 1ML VIAL SQ SCH (22:06)
[2018-06-27] MEDS ORDERED: SENNOSIDES 8.6MG TABLET (FP) PO PRN (22:31)
[2018-06-27] MEDS ORDERED: ALBUTEROL SO4 0.083% IH SOL 2.5 MG/3 ML VIAL.NEB. NEB PRN (22:31)
[2018-06-27 23:25] LABS: ALBUMIN 2.9 g/dl (3.4-5.0); ANION GAP 6 MMOL/L (8-16); BILIRUBIN,TOTAL 0.2 mg/dL (0.2-1); BLOOD UREA NITROGEN 7 mg/dL (7-18); CALCIUM 8.2 mg/dL (8.5-10.1); CHLORIDE 95 mmol/L (98-107); CO2 30 mmol/L (21-32); CREATININE 0.4 mg/dL (0.55-1.3); GLUCOSE,RANDOM 94 mg/dL (74-106); POTASSIUM 4.2 mmol/L (3.5-5.1); SGOT/AST 33 U/L (15-37); SGPT/ALT 35 U/L (13-61); SODIUM 131 mmol/L (136-145); TOT PROT 7.4 g/dl (6.4-8.2)
[2018-06-27 23:26] LABS: ALK PHOS 206 U/L (45-117)
--- NOTE | 2018-06-28 02:06 | PN ---
Teaching Attending Note Name of Resident: Shannen Sullivan ATTENDING PHYSICIAN STATEMENT I saw and evaluated the patient. Chart, data, imaging reviewed. I reviewed the resident's note and discussed the case with the resident. I agree with the resident's findings and plan as documented. SUBJECTIVE: 78 y/o female with PMH of breast ca (s/p L mastectomy 13 years ago), RA on prednisone, interstitial lung disease, depression, cholethiasis, brought to ER by daughter with generalized weakness for the past few days. Patient was found to be hyponatremic in PCP's office - (Na- 122) and urged to come to hospital for evaluation. History of failure to thrive. NO diuretic use. Denied any vomiting or diarrhea. Started Remeron this past September. OBJECTIVE: Last Vital Signs Temp Pulse Resp BP Pulse Ox 98.2 F 90 17 144/76 96 06/27/18 20:40 06/27/18 23:25 06/27/18 23:25 06/27/18 23:25 06/27/18 23:32 General -nontoxic, comfortable appearing, frail heent- at, nc, no oral lesions neck- supple, no jvd cv -s1+s2+rrr chest clear abdomen -soft, benign, bs+ skin -no rashes appreciated, dry Abnormal Lab Results 06/27/18 06/27/18 06/27/18 15:00 15:16 15:16 RBC 3.42 L Hct 31.5 L Plt Count 528 H D MPV 6.4 L D Neutrophils % 86.4 H D Lymphocytes % 7.9 L D Sodium 128 L Chloride 91 L Anion Gap 6 L Creatinine 0.4 L Serum Osmolality Calcium AST 41 H Alkaline Phosphatase 231 H Total Protein 8.4 H Albumin 3.2 L Urine Blood 1+ H 06/27/18 06/27/18 15:16 22:43 RBC Hct Plt Count MPV Neutrophils % Lymphocytes % Sodium 131 L Chloride 95 L Anion Gap 6 L Creatinine 0.4 L Serum Osmolality 266 L Calcium 8.2 L AST Alkaline Phosphatase 206 H Total Protein Albumin 2.9 L Urine Blood ASSESSMENT AND PLAN: 78yo woman with electrolyte derangements- hyponatremia and hypochloremia, likely secondary to poor PO intake vs medication induced (SIADH) - has been started 09/2017. Pt is not on diuretics. Appeared volume depleted upon arrival. -observation -fall precautions -complete bed rest -IV fluid hydration -send urine cr -repeat Na in am -send mg, phos- supplement prn -PO protein supplement q meal -consider to hold mirtazepine as it might worsen hyponatremia -c/2 home meds -heparin sc for dvt ppx
[2018-06-28] MEDS: HEPARIN NA (PORCINE) 5,000 UNITS/ML 1ML VIAL SQ SCH ×2 (06:40→15:44)
[2018-06-28] MEDS ORDERED: ONDANSETRON 4 MG TABLET PO SCH (07:00)
[2018-06-28 07:58] LABS: HEMATOCRIT 26.4 % (32.4-45.2); HEMOGLOBIN 8.9 GM/dL (10.7-15.3); MCHC 33.6 g/dl (32.0-36.0); MEAN PLT VOLUME 6.6 fl (7.5-11.1); PLATELET COUNT 414 K/MM3 (134-434); RBC 2.87 M/mm3 (3.60-5.2); RDW 13.8 % (11.6-15.6); WHITE BLOOD COUNT 6.3 K/mm3 (4.0-10.0)
[2018-06-28 08:58] LABS: CHLORIDE 105 mmol/L (98-107); POTASSIUM 3.1 mmol/L (3.5-5.1); SODIUM 138 mmol/L (136-145)
[2018-06-28 09:11] LABS: ALBUMIN 2.2 g/dl (3.4-5.0); ALK PHOS 156 U/L (45-117); ANION GAP 9 MMOL/L (8-16); BILIRUBIN,TOTAL 0.2 mg/dL (0.2-1); BLOOD UREA NITROGEN 4 mg/dL (7-18); CO2 24 mmol/L (21-32); CREATININE < 0.2 mg/dL (0.55-1.3); GLUCOSE,RANDOM 65 mg/dL (74-106); MAGNESIUM 1.5 mg/dL (1.8-2.4); PHOSPHOROUS 3.1 mg/dL (2.5-4.9); SGOT/AST 25 U/L (15-37); SGPT/ALT 27 U/L (13-61); TOT PROT 5.8 g/dl (6.4-8.2)
[2018-06-28 09:33] LABS: CALCIUM 6.9 mg/dL (8.5-10.1)
--- NOTE | 2018-06-28 09:59 | EKG ---
Test Reason : Blood Pressure : / mmHG Vent. Rate : 108 BPM Atrial Rate : 108 BPM P-R Int : 150 ms QRS Dur : 080 ms QT Int : 338 ms P-R-T Axes : 043 -46 009 degrees QTc Int : 452 ms SINUS TACHYCARDIA WITH PREMATURE ATRIAL COMPLEXES LEFT ANTERIOR FASCICULAR BLOCK MODERATE VOLTAGE CRITERIA FOR LVH, MAY BE NORMAL VARIANT ABNORMAL ECG WHEN COMPARED WITH ECG OF 02-APR-2018 08:27, NONSPECIFIC T WAVE ABNORMALITY NOW EVIDENT IN ANTERIOR LEADS Confirmed by CHANDLER EDUARDO MD ([id number]) on 06/28/2018 9:58:46 AM Referred By: Confirmed By:CHANDLER EDUARDO MD
[2018-06-28] MEDS ORDERED: FOLIC ACID 1 MG TABLET (FP) PO SCH (10:00)
[2018-06-28] MEDS ORDERED: PANTOPRAZOLE 40 MG TABLET (FP) PO SCH (10:00)
[2018-06-28] MEDS ORDERED: predniSONE 5 MG TABLET (UD) PO SCH (10:00)
[2018-06-28] MEDS ORDERED: sulfaSALAzine 500 MG TABLET PO SCH (10:00)
[2018-06-28] MEDS ORDERED: CALCIUM (OYSTER SHELL) 500 MG TABLET (FP) PO SCH (10:00)
[2018-06-28] MEDS ORDERED: DULoxetine HCL 30 MG CAPSULE.DR (FP) PO SCH (10:00)
[2018-06-28 12:26] VITALS: BP 136/70; PULSE 100; TEMP 98.9
--- NOTE | 2018-06-28 14:25 | PN ---
Teaching Attending Note Name of Resident: Justine Patterson ATTENDING PHYSICIAN STATEMENT I saw and evaluated the patient. I reviewed the resident's note and discussed the case with the resident. I agree with the resident's findings and plan as documented. SUBJECTIVE:asymptomatic. denies CP, SOB, fever, chills, N/V/C/D or weakness OBJECTIVE: Last Vital Signs Temp Pulse Resp BP Pulse Ox 98.9 F 100 H 17 136/70 96 06/28/18 09:00 06/28/18 09:00 06/28/18 09:00 06/28/18 09:00 06/28/18 09:00 General NAD CV S1 S2 RRR no murmur/rub/gallop Lungs crackles B/L bases no wheezing ASSESSMENT AND PLAN: 78yo F with PMH breast ca s/p masectomy, RA on steroids, ILD, depression and dementia sent to the ER by their PMD for hyponatremia with complaints of generalized weakness 1. Symptomatic Hyponatremia- likely due to dehydration although could also be medication induced. received IVF and now developing some crackles. will d/c IVF. repeat Na level if continues to improve can d/c home and follow up with PMD and discuss possibility of stopping mirtazipine as this can also cause hyponatremia.
[2018-06-28] MEDS ORDERED: POTASSIUM CHLORIDE ORAL LIQUID 20 MEQ/15 ML PO ONE (15:15)
--- NOTE | 2018-06-28 17:26 | DS ---
Physical Exam: SUBJECTIVE: Patient seen and examined at bedside this morning. No acute events overnight. Patient has no active complaints. OBJECTIVE: Vital Signs Period Temp Pulse Resp BP Sys/Duffy Pulse Ox Last 24 Hr 98.2 F-98.9 F 80-100 16-18 136-144/64-76 96-97 PHYSICAL EXAM GENERAL: The patient is awake, alert, and fully oriented, in no acute distress. HEAD: Normal with no signs of trauma. EYES: PERRLA, EOMI, sclera anicteric, conjunctiva clear. ENT: Ears normal, nares patent, oropharynx clear without exudates, moist mucous membranes. NECK: Trachea midline, full range of motion, supple. LUNGS: +crackles, b/l HEART: Regular rate and rhythm, S1, S2 without murmur, rub or gallop. ABDOMEN: Soft, nontender, nondistended, normoactive bowel sounds. EXTREMITIES: 2+ pulses, warm, well-perfused, no edema. NEUROLOGICAL: Cranial nerves II through XII grossly intact. Normal speech, gait not observed. PSYCH: Normal mood, normal affect. SKIN: Warm, dry, normal turgor, no rashes or lesions noted. LABS Laboratory Results - last 24 hr 06/27/18 06/27/18 06/27/18 15:16 21:45 22:43 WBC RBC Hgb Hct MCV MCH MCHC RDW Plt Count MPV Sodium 131 L Potassium 4.2 Chloride 95 L Carbon Dioxide 30 Anion Gap 6 L BUN 7 Creatinine 0.4 L Creat Clearance w eGFR > 60 Random Glucose 94 Calcium 8.2 L Phosphorus Magnesium Total Bilirubin 0.2 AST 33 ALT 35 Alkaline Phosphatase 206 H Total Protein 7.4 Albumin 2.9 L TSH 2.78 Urine Osmolality 388 Ur Random Sodium 40 Urine Creatinine 06/28/18 06/28/18 06/28/18 06:30 06:30 14:00 WBC 6.3 RBC 2.87 L Hgb 8.9 L Hct 26.4 L D MCV 92.0 MCH 31.0 MCHC 33.6 RDW 13.8 Plt Count 414 D MPV 6.6 L Sodium 138 Potassium 3.1 L Chloride 105 Carbon Dioxide 24 Anion Gap 9 BUN 4 L Creatinine < 0.2 L Creat Clearance w eGFR > 60 Random Glucose 65 L Calcium 6.9 L* Phosphorus 3.1 Magnesium 1.5 L Total Bilirubin 0.2 AST 25 ALT 27 Alkaline Phosphatase 156 H Total Protein 5.8 L Albumin 2.2 L TSH Urine Osmolality Ur Random Sodium Urine Creatinine 22.0 L Imaging CXR: Since 03/30/18, again noted the diffuse bilateral lung markings with what appears to be bronchiectasis at the bases, elevated right hemidiaphragm, scoliosis and lower cervical spine fusion. HOSPITAL COURSE: Date of Admission:06/28/18 Date of Discharge: 06/28/18 Patient is a 78 y/o female with PMHx of breast ca (s/p L mastectomy), ILD, RA on prednisone, depression who presents to the ED with complaints of dizziness, weakness and lightheadedness, found to be hyponatremic to 128 on arrival. Gentle IV hydration was started with IV NS. Remeron was put on hold. Patient sodium levels continued to improve and she has not complained of any symptoms. She was discharged home with instructions to follow-up with primary care doctor to discuss possibility of discontinuing the Remeron. Minutes to complete discharge: 45 Discharge Summary Reason For Visit: HYPONATREMIA Current Active Problems Altered mental status (Acute) Hyponatremia (Acute) Condition: Stable - Instructions Diet, Activity, Other Instructions: You were admitted because you were found to have hyponatremia, which means your blood level of sodium (salt) is too low. You were given IV fluids that increased your sodium levels to normal. We held one of your medications, Mirtazapine (Remeron), which is known to decrease the sodium in the blood. Follow-up with your primary care doctor who prescribed you Remeron, to discuss about possibility of discontinuing this drug to prevent this from occurring again in the future. Continue all other medications as prescribed. Call 911 or go the the ED for any worsening weakness, dizziness, loss of appetite, confusion or any other new concerns noted. Referrals: ON STAFF,NOT [Primary Care Provider] - Disposition: HOME - Home Medications Comprehensive Discharge Medication List: Ambulatory Orders Atorvastatin Ca [Lipitor] 20 mg PO HS 03/30/18 Bupropion HCl [Wellbutrin Sr] 150 mg PO DAILY 03/30/18 Calcium Carbonate [Calcium] 600 mg PO DAILY 03/30/18 Duloxetine HCl 30 mg PO BID 03/30/18 Folic Acid 1 mg PO DAILY 03/30/18 Metoclopramide HCl 5 mg PO DAILY 03/30/18 Mirtazapine [Remeron -] 22.5 mg PO HS 03/30/18 Omeprazole 40 mg PO DAILY 03/30/18 Ondansetron HCl 4 mg PO AC 03/30/18 Prednisone 5 mg PO DAILY 03/30/18 Sulfasalazine [Azulfidine -] 1,000 mg PO BID 03/30/18 Albuterol 0.083% Nebulizer Hanny [Ventolin 0.083% Nebulizer Soln -] 1 amp NEB Q4H PRN amp 04/06/18 Megestrol Acetate Oral Susp [Megace Oral Suspension -] 400 mg PO DAILY cup Nystatin Oral Suspension - [Nystatin Oral Susp 969097 Units/5 ML -] 500,000 units PO Q6HPO cup 04/06/18 Sennosides [Senna -] 2 tab PO HS PRN tablet 04/06/18 This patient is new to me today: Yes Date on this admission: 06/29/18 Emergency Visit: Yes ED Registration Date: 06/28/18 Care time: The patient presented to the Emergency Department on the above date and was hospitalized for further evaluation of their emergent condition. Critical Care patient: No - Discharge Referral Referred to [facility] No
[2018-06-28] MEDS ORDERED: ATORVASTATIN CA 20 MG TABLET (FP) PO SCH (22:00)
[2018-06-28] MEDS ORDERED: MIRTAZAPINE 15 MG TABLET (FP) PO SCH (22:00)
--- NOTE | 2018-06-29 12:09 | EKG ---
Test Reason : Blood Pressure : / mmHG Vent. Rate : 106 BPM Atrial Rate : 106 BPM P-R Int : 148 ms QRS Dur : 080 ms QT Int : 346 ms P-R-T Axes : 057 -51 029 degrees QTc Int : 459 ms SINUS TACHYCARDIA WITH PREMATURE ATRIAL COMPLEXES LEFT ANTERIOR FASCICULAR BLOCK MINIMAL VOLTAGE CRITERIA FOR LVH, MAY BE NORMAL VARIANT ABNORMAL ECG WHEN COMPARED WITH ECG OF 27-JUN-2018 15:18, NO SIGNIFICANT CHANGE WAS FOUND Confirmed by LOKESH CROWLEY MD ([id number]) on 06/29/2018 12:09:36 PM Referred By: Confirmed By:LOKESH CROWLEY MD
== END 2018-06-28 17:58 | disposition home or self-care (01) | DRG 422 ==
LOC: JER 14:06 → JERBED 20:40 → J6S 06-28 01:00 → OBSVTOIN 06-28 07:00
PROVIDERS: ADMIT Internal Medicine; ATTEND Internal Medicine
DX: E87.1 Hypo-osmolality and hyponatremia (principal); T43.025A Adverse effect of tetracyclic antidepressants, initial encounter; R41.82 Altered mental status, unspecified; J84.10 Pulmonary fibrosis, unspecified; F32.9 Major depressive disorder, single episode, unspecified; E78.5 Hyperlipidemia, unspecified; M06.9 Rheumatoid arthritis, unspecified; E86.0 Dehydration; J84.9 Interstitial pulmonary disease, unspecified; I10 Essential (primary) hypertension; R00.0 Tachycardia, unspecified; I44.60 Unspecified fascicular block; K80.20 Calculus of gallbladder without cholecystitis without obstruction; R42 Dizziness and giddiness; E87.8 Other disorders of electrolyte and fluid balance, not elsewhere classified; R63.0 Anorexia; Z68.1 Body mass index [BMI] 19.9 or less, adult; Z79.52 Long term (current) use of systemic steroids; Z85.3 Personal history of malignant neoplasm of breast
CPT/HCPCS: 36415; 71045-TC-FY; 80053; 81003; 81015; 82550; 82570; 83735; 83930; 83935; 84100; 84300; 84443; 84484; 85025; 85027; 93005; 93010; 99285-25; G0378; J1644; J7030

== ENCOUNTER 2019-02-27 14:05 | Emergency (ER) | payer OTHER ==
--- NOTE | 2019-02-27 14:14 | PDOC ---
Rapid Medical Evaluation Time Seen by Provider: 02/27/19 14:14 Medical Evaluation: Allergies Allergy/AdvReac Type Severity Reaction Status Date / Time Penicillins Allergy Severe Difficulty Verified 06/27/18 14:14 Breathing 02/27/19 14:14 I have performed a brief in-person evaluation of this patient. The patient presents with a chief complaint of: Dr Davidson for abnl CXR, "they said she needs a CT of her lungs", hx of productive cough/SOB x 1 week, denies fever, n/v/d Pertinent physical exam findings: well appearing, diffuse crackles to b/l lungs , tachy I have ordered the following: labs, cxr The patient will proceed to the ED for further evaluation.
[2019-02-27 14:19] VITALS: TEMP 98.5; BMI 28.5
[2019-02-27 15:21] LABS: BASO % 0.4 % (0-2.0); EOS % 0.3 % (0-4.5); HEMATOCRIT 36.9 % (32.4-45.2); HEMOGLOBIN 11.8 GM/dL (10.7-15.3); LYMPH % 6.1 % (8-40); MCH 30.6 pg (25.7-33.7); MEAN CELL VOLUME 95.8 fl (80-96); MEAN PLT VOLUME 7.5 fl (7.5-11.1); MONO % 3.4 % (3.8-10.2); NEUT % 89.8 % (42.8-82.8); PLATELET COUNT 373 K/MM3 (134-434); RBC 3.86 M/mm3 (3.60-5.2); RDW 14.3 % (11.6-15.6); WHITE BLOOD COUNT 11.9 K/mm3 (4.0-10.0)
--- NOTE | 2019-02-27 15:23 | EKG ---
Test Reason : Blood Pressure : / mmHG Vent. Rate : 109 BPM Atrial Rate : 109 BPM P-R Int : 150 ms QRS Dur : 082 ms QT Int : 348 ms P-R-T Axes : 041 -51 028 degrees QTc Int : 468 ms SINUS TACHYCARDIA WITH PREMATURE ATRIAL COMPLEXES LEFT ANTERIOR FASCICULAR BLOCK MODERATE VOLTAGE CRITERIA FOR LVH, MAY BE NORMAL VARIANT ABNORMAL ECG WHEN COMPARED WITH ECG OF 27-JUN-2018 16:20, NONSPECIFIC T WAVE ABNORMALITY, IMPROVED IN ANTERIOR LEADS Confirmed by LOKESH CROWLEY MD ([id number]) on 02/27/2019 3:23:15 PM Referred By: Confirmed By:LOKESH CROWLEY MD
[2019-02-27 16:13] LABS: ALBUMIN 3.2 g/dl (3.4-5.0); ALK PHOS 130 U/L (45-117); ANION GAP 6 MMOL/L (8-16); BILIRUBIN,TOTAL 0.3 mg/dL (0.2-1); BLOOD UREA NITROGEN 9 mg/dL (7-18); CALCIUM 8.3 mg/dL (8.5-10.1); CHLORIDE 95 mmol/L (98-107); CO2 33 mmol/L (21-32); CREATININE 0.4 mg/dL (0.55-1.3); GLUCOSE,RANDOM 130 mg/dL (74-106); N-TERMINAL BNP 771.3 pg/ml (5-450); POTASSIUM 4.2 mmol/L (3.5-5.1); SGOT/AST 28 U/L (15-37); SGPT/ALT 24 U/L (13-61); SODIUM 133 mmol/L (136-145); TOT PROT 7.8 g/dl (6.4-8.2)
--- NOTE | 2019-02-27 16:25 | PDOC ---
History of Present Illness - General Chief Complaint: Revisit, Lab Variance Stated Complaint: SENT BY PCP Time Seen by Provider: 02/27/19 14:14 History Source: Patient Exam Limitations: Clinical Condition - History of Present Illness Initial Comments: 02/27/19 16:21 Patient with history of breast cancer, hypertension, hyperlipidemia and depression presenting for follow-up imaging status post being called by radiology as with abnormal checks x-ray result. Patient reported having one- week history of persistent cough and intermittent shortness of breath which she saw her PCP and sent for chest x-ray which showed abnormal findings of right possible pneumoperitoneum which need follow-up imaging with CT for evaluation. Patient reported has been on 10 day course of antibiotics given by PCP and prednisone taper . Reported improvement with cough. Denies fever, chills or shortness of breath now. Denies chest pains Timing/Duration: 1 week Past History - Past Medical History Allergies/Adverse Reactions: Allergies Allergy/AdvReac Type Severity Reaction Status Date / Time Penicillins Allergy Severe Difficulty Verified 02/27/19 14:16 Breathing Home Medications: Ambulatory Orders Calcium Carbonate [Calcium] 600 mg PO DAILY 03/30/18 Folic Acid 1 mg PO DAILY 03/30/18 Mirtazapine [Remeron -] 7.5 mg PO HS 03/30/18 Prednisone 5 mg PO DAILY 03/30/18 Sulfasalazine [Azulfidine -] 1,000 mg PO BID 03/30/18 Abatacept [Orencia Clickject] 125 mg SQ WEEKLY 02/27/19 Cyclobenzaprine HCl 10 mg PO PRN 02/27/19 Gabapentin 300 mg PO DAILY 02/27/19 Ibuprofen [Motrin -] 600 mg PO HS 02/27/19 Montelukast Sodium [Singulair] 10 mg PO HS 02/27/19 Ranitidine [Zantac -] 150 mg PO HS 02/27/19 Anemia: No Asthma: No Cancer: Yes (BREAST) Cardiac Disorders: No CVA: No COPD: No CHF: No DVT: No Dementia: No Diabetes: No GI Disorders: No Disorders: No HTN: Yes Hypercholesterolemia: Yes Liver Disease: No Psychiatric Problems: Yes (DEPRESSION) Seizures: No Thyroid Disease: No - Surgical History Appendectomy: No Cardiac Surgery: No Cholecystectomy: No Lung Surgery: No Neurologic Surgery: Yes ("FUSION OF SPINAL BONES") Orthopedic Surgery: No - Immunization History Immunization Up to Date: Yes - Suicide/Smoking/Psychosocial Hx Smoking History: Never smoked Have you smoked in the past 12 months: No Hx Alcohol Use: No Drug/Substance Use Hx: No Substance Use Type: None Hx Substance Use Treatment: No Review of Systems - Review of Systems Able to Perform ROS?: Yes Is the patient limited Omani proficient: No Constitutional: No: Chills, Fever, Malaise HEENTM: No: Symptoms Reported, See HPI, Eye Pain, Blurred Vision, Tearing, Recent change in vision, Double Vision, Cataracts, Ear Pain, Ocular Prothesis, Ear Discharge, Nose Pain, Nose Congestion, Tinnitus, Nose Bleeding, Hearing Loss , Throat Pain, Throat Swelling, Mouth Pain, Dental Problems, Difficulty Swallowing, Mouth Swelling, Other Respiratory: Yes: Symptoms reported, See HPI, Cough (intermittent), Shortness of Breath (intermittent). No: Orthopnea, SOB with Exertion, SOB at Rest, Stridor, Wheezing, Productive cough, Hemoptysis, Other Cardiac (ROS): No: Symptoms Reported, See HPI, Chest Pain, Edema, Irregular Heart Rate, Lightheadedness, Palpitations, Syncope, Chest Tightness, Other ABD/GI: No: Diarrhea, Nausea, Vomiting, Abdominal cramping *Physical Exam - Vital Signs Last Vital Signs Temp Pulse Resp BP Pulse Ox 98.5 F 114 H 16 132/58 L 98 02/27/19 14:16 02/27/19 14:16 02/27/19 14:16 02/27/19 14:16 02/27/19 14:16 - Physical Exam Comments: 02/27/19 16:26 GENERAL: Well developed, well nourished. Awake and alert. No acute distress. HEENT: Normocephalic, atraumatic. PERRLA, EOMI. No conjunctival pallor. Sclera are non-icteric. Moist mucous membranes. Oropharynx is clear. NECK: Supple. Full ROM. CARDIOVASCULAR: Regular rate and rhythm. No murmurs, rubs, or gallops. Distal pulses are 2+ and symmetric. PULMONARY: No evidence of respiratory distress.mild crackles in lung bases. No wheezing. ABDOMINAL: Soft. Non-tender. Non-distended. No rebound or guarding. No organomegaly. Normoactive bowel sounds. MUSCULOSKELETAL Normal range of motion at all joints. EXTREMITIES: No cyanosis. No clubbing. No edema. No calf tenderness. SKIN: Warm and dry. Normal capillary refill. No rashes. No jaundice. NEUROLOGICAL: Alert, awake, appropriate. Gait is normal without ataxia. PSYCHIATRIC: Cooperative. Good eye contact. Appropriate mood General Appearance: Yes: Nourished, Appropriately Dressed. No: Apparent Distress ED Treatment Course - LABORATORY CBC & Chemistry Diagram: 02/27/19 14:50 02/27/19 14:50 - ADDITIONAL ORDERS Additional order review: Laboratory Results 02/27/19 02/27/19 14:50 14:50 Sodium 133 L Potassium 4.2 Chloride 95 L Carbon Dioxide 33 H Anion Gap 6 L BUN 9 Creatinine 0.4 L Est GFR (CKD-EPI)AfAm 115.62 Est GFR (CKD-EPI)NonAf 99.76 Random Glucose 130 H Lactic Acid 1.7 Calcium 8.3 L Total Bilirubin 0.3 AST 28 ALT 24 Alkaline Phosphatase 130 H Creatine Kinase 91 Troponin I < 0.02 B-Natriuretic Peptide 771.3 H Total Protein 7.8 Albumin 3.2 L 02/27/19 14:50 RBC 3.86 MCV 95.8 MCHC 32.0 RDW 14.3 MPV 7.5 D Neutrophils % 89.8 H Lymphocytes % 6.1 L D Monocytes % 3.4 L Eosinophils % 0.3 Basophils % 0.4 - RADIOLOGY Radiology Studies Ordered: Category Date Time Status ABDOMEN & PELVIS CT WITH CONTR [CT] Stat CT Scan 02/27/19 16:[address] WITH CONTRAST [CT] Stat CT Scan 02/27/19 16:08 Ordered Medical Decision Making - Medical Decision Making 02/27/19 16:23 Patient with history of breast cancer, hypertension, hyperlipidemia and depression presenting for follow-up imaging status post being called by radiology as with abnormal checks x-ray result. Patient reported having one- week history of persistent cough and intermittent shortness of breath which she saw her PCP and sent for chest x-ray which showed abnormal findings of right possible pneumoperitoneum which need follow-up imaging with CT for evaluation. Patient reported has been on 10 day course of antibiotics given by PCP. Reported improvement with cough. Denies fever, chills or shortness of breath now. Denies chest pains Patient in no respiratory distress. Mild intermittent crackle on exam otherwise normal exam. CBC, chemistry and EKG ordered from triage with no acute findings on EKG. A chest x-ray ordered from triage showed no acute process. Chest and abdominal CT with IV contrast ordered to evaluate pneumoperitoneum and crackles in lungs. Treat based on imaging results 02/27/19 16:27 02/27/19 19:[address] Pt signed out to night team EDDA Duffy *DC/Admit/Observation/Transfer Diagnosis at time of Disposition: Interstitial lung disease - Discharge Dispostion Disposition: HOME Condition at time of disposition: Stable Decision to Admit order: No - Referrals Referrals: Laverne Chow MD [Primary Care Provider] - 2 Days - Patient Instructions Additional Instructions: Thank you for choosing [facility]. It was a pleasure taking care of you. Your CT scan of your chest/abdomen/pelvis showed no acute findings other than the chronic lung disease Please follow-up with your doctor for further care Return to the Emergency Department for any concerning symptoms. - Post Discharge Activity
--- NOTE | 2019-02-27 17:11 | PDOC ---
*Physical Exam - Vital Signs Last Vital Signs Temp Pulse Resp BP Pulse Ox 98.5 F 114 H 16 132/58 L 98 02/27/19 14:16 02/27/19 14:16 02/27/19 14:16 02/27/19 14:16 02/27/19 14:16 ED Treatment Course - LABORATORY CBC & Chemistry Diagram: 02/27/19 14:50 02/27/19 14:50 - ADDITIONAL ORDERS Additional order review: Laboratory Results 02/27/19 02/27/19 14:50 14:50 Sodium 133 L Potassium 4.2 Chloride 95 L Carbon Dioxide 33 H Anion Gap 6 L BUN 9 Creatinine 0.4 L Est GFR (CKD-EPI)AfAm 115.62 Est GFR (CKD-EPI)NonAf 99.76 Random Glucose 130 H Lactic Acid 1.7 Calcium 8.3 L Total Bilirubin 0.3 AST 28 ALT 24 Alkaline Phosphatase 130 H Creatine Kinase 91 Troponin I < 0.02 B-Natriuretic Peptide 771.3 H Total Protein 7.8 Albumin 3.2 L 02/27/19 14:50 RBC 3.86 MCV 95.8 MCHC 32.0 RDW 14.3 MPV 7.5 D Neutrophils % 89.8 H Lymphocytes % 6.1 L D Monocytes % 3.4 L Eosinophils % 0.3 Basophils % 0.4 Medical Decision Making - Medical Decision Making 02/27/19 17:08 79 yo F presenting to the ER for review of abn CXR Pt s/p CXR of the chest for cough Found to possibly have a pneumoperitoneum CT recommended Pt denies abd pain Has been treated for the past 10 days for pneumonia Pt seen by Midlevel Provider under my direct supervision Pt interviewed and examined Ancillary studies pending EKG - ST rate of 109 bpm, LAD, no st elevation or depression, t waves upright I agree with plan as outlined by Midlevel Provider CT pending Will dispo pending imaging *DC/Admit/Observation/Transfer Diagnosis at time of Disposition: Interstitial lung disease - Discharge Dispostion Disposition: HOME Condition at time of disposition: Stable - Referrals Referrals: Laverne Chow MD [Primary Care Provider] - 2 Days - Patient Instructions Additional Instructions: Thank you for choosing [facility]. It was a pleasure taking care of you. Your CT scan of your chest/abdomen/pelvis showed no acute findings other than the chronic lung disease Please follow-up with your doctor for further care Return to the Emergency Department for any concerning symptoms. - Post Discharge Activity
[2019-02-27 20:27] VITALS: BP 117/68; PULSE 95
--- NOTE | 2019-02-27 20:54 | PDOC ---
*Physical Exam - Vital Signs Last Vital Signs Temp Pulse Resp BP Pulse Ox 98.5 F 95 H 18 117/68 96 02/27/19 14:16 02/27/19 20:26 02/27/19 20:26 02/27/19 20:26 02/27/19 20:26 ED Treatment Course - LABORATORY CBC & Chemistry Diagram: 02/27/19 14:50 02/27/19 14:50 - ADDITIONAL ORDERS Additional order review: Laboratory Results 02/27/19 02/27/19 14:50 14:50 Sodium 133 L Potassium 4.2 Chloride 95 L Carbon Dioxide 33 H Anion Gap 6 L BUN 9 Creatinine 0.4 L Est GFR (CKD-EPI)AfAm 115.62 Est GFR (CKD-EPI)NonAf 99.76 Random Glucose 130 H Lactic Acid 1.7 Calcium 8.3 L Total Bilirubin 0.3 AST 28 ALT 24 Alkaline Phosphatase 130 H Creatine Kinase 91 Troponin I < 0.02 B-Natriuretic Peptide 771.3 H Total Protein 7.8 Albumin 3.2 L 02/27/19 14:50 RBC 3.86 MCV 95.8 MCHC 32.0 RDW 14.3 MPV 7.5 D Neutrophils % 89.8 H Lymphocytes % 6.1 L D Monocytes % 3.4 L Eosinophils % 0.3 Basophils % 0.4 Medical Decision Making - Medical Decision Making Patient signed out to me by EDDA Durham Patient resting in NAD, denies any compliants CT C/A/P shows chronic lung disease with no evidence of pneumoperitoneum or other acute findings Findings endorsed to patient Patient stable for dc 02/27/19 20:52 *DC/Admit/Observation/Transfer Diagnosis at time of Disposition: Interstitial lung disease - Discharge Dispostion Disposition: HOME Condition at time of disposition: Stable Decision to Admit order: No - Referrals Referrals: Laverne Chow MD [Primary Care Provider] - 2 Days - Patient Instructions Additional Instructions: Thank you for choosing [facility]. It was a pleasure taking care of you. Your CT scan of your chest/abdomen/pelvis showed no acute findings other than the chronic lung disease Please follow-up with your doctor for further care Return to the Emergency Department for any concerning symptoms. - Post Discharge Activity
== END 2019-02-27 21:26 | disposition home or self-care (01) ==
LOC: JER 14:05
DX: J84.9 Interstitial pulmonary disease, unspecified (principal); Z85.3 Personal history of malignant neoplasm of breast; I10 Essential (primary) hypertension; E78.5 Hyperlipidemia, unspecified; F32.9 Major depressive disorder, single episode, unspecified
CPT/HCPCS: 36415; 71046-TC-FY; 71260-TC; 74177-TC; 80053; 82550; 83605; 83880; 84484; 85025; 93005; 93010; 99283-25; Q9967

== ENCOUNTER 2019-09-24 13:21 | Inpatient (IN) | payer OTHER ==
--- NOTE | 2019-09-24 13:27 | PDOC ---
Rapid Medical Evaluation Time Seen by Provider: 09/24/19 13:22 Medical Evaluation: Allergies Allergy/AdvReac Type Severity Reaction Status Date / Time Penicillins Allergy Severe Difficulty Verified 02/27/19 14:16 Breathing 09/24/19 13:22 I have performed a brief in-person evaluation of this patient. The patient presents with a chief complaint of: abdominal pain x 1 week, burning to tongue since this morning Pertinent physical exam findings: epigastric tenderness, pulses intact, lungs ctab, VSS I have ordered the following: ekg, labs The patient will proceed to the ED for further evaluation. Discharge Disposition - Diagnosis Abdominal pain - Referrals - Patient Instructions - Post Discharge Activity
[2019-09-24 14:23] LABS: BASO % 0.3 % (0-2.0); EOS % 0.4 % (0-4.5); HEMATOCRIT 35.1 % (32.4-45.2); HEMOGLOBIN 11.8 GM/dL (10.7-15.3); MCH 30.6 pg (25.7-33.7); MCHC 33.7 g/dl (32.0-36.0); MEAN CELL VOLUME 90.8 fl (80-96); MEAN PLT VOLUME 7.4 fl (7.5-11.1); MONO % 3.4 % (3.8-10.2); NEUT % 91.9 % (42.8-82.8); PLATELET COUNT 410 K/MM3 (134-434); RBC 3.86 M/mm3 (3.60-5.2); RDW 14.4 % (11.6-15.6); WHITE BLOOD COUNT 9.5 K/mm3 (4.0-10.0)
--- NOTE | 2019-09-24 14:35 | PDOC ---
History of Present Illness - General Chief Complaint: Pain Stated Complaint: SHORTNESS OF BREATH Time Seen by Provider: 09/24/19 13:22 - History of Present Illness Initial Comments: 09/24/19 15:58 The patient is a 79 year old female with a history of HTN, HLD, partial SBO, Breast CA, Interstitial lung disease who presents for evaluation of abdominal pain, nausea, and vomiting. The patient reports a 4 day history of sharp epigastric abdominal pain with associated nausea. She reported multiple episodes of non-bilious, non-bloody vomiting 1 day ago with worsening pain prompting her presentation to the ED for further evaluation. She also reports straining with urination and bowel movements as well as a burning sensation in her tongue. She otherwise denies fevers, chills, chest pain, numbness or weakness. Past History - Past Medical History Allergies/Adverse Reactions: Allergies Allergy/AdvReac Type Severity Reaction Status Date / Time Penicillins Allergy Severe Difficulty Verified 09/24/19 13:26 Breathing Home Medications: Ambulatory Orders Calcium Carbonate [Calcium] 600 mg PO DAILY 03/30/18 Folic Acid 1 mg PO DAILY 03/30/18 Mirtazapine [Remeron -] 7.5 mg PO HS 03/30/18 Prednisone 5 mg PO DAILY 03/30/18 Abatacept [Orencia Clickject] 125 mg SQ WEEKLY 02/27/19 Cyclobenzaprine HCl 10 mg PO PRN 02/27/19 Gabapentin 300 mg PO DAILY 02/27/19 Montelukast Sodium [Singulair] 10 mg PO HS 02/27/19 Ranitidine [Zantac -] 150 mg PO HS 02/27/19 Sulfasalazine 1,000 mg PO BID 09/24/19 Budesonide/Formeterol Fumarate [SYMBICORT 160/4.5mcg -] 160 mcg IH PRN 09/25/19 Cholecalciferol (Vitamin D3) [Vitamin D -] 50,000 units PO WEEKLY 09/25/19 Montelukast Na [Singulair -] 10 mg PO DAILY 09/25/19 Mv-Mn/Iron/Folic Acid/Herb 190 [Vitamin D3 Complete Caplet] 09/25/19 Pantoprazole Sodium [Protonix -] 40 mg PO DAILY 09/25/19 predniSONE [Deltasone -] 5 mg PO DAILY 09/25/19 Anemia: No Asthma: No Cancer: Yes (BREAST) Cardiac Disorders: No CVA: No COPD: No CHF: No DVT: No Dementia: No Diabetes: No GI Disorders: No Disorders: No HTN: Yes Hypercholesterolemia: Yes Liver Disease: No Psychiatric Problems: Yes (DEPRESSION) Seizures: No Thyroid Disease: No - Surgical History Appendectomy: No Cardiac Surgery: No Cholecystectomy: No Lung Surgery: No Neurologic Surgery: Yes ("FUSION OF SPINAL BONES") Orthopedic Surgery: No - Immunization History Immunization Up to Date: Yes - Psycho Social/Smoking Cessation Hx Smoking History: Never smoked Have you smoked in the past 12 months: No Hx Alcohol Use: No Drug/Substance Use Hx: No Substance Use Type: None Hx Substance Use Treatment: No Review of Systems - Review of Systems Comments:: 09/24/19 16:03 Constitutional: No fevers, chills, fatigue, malaise HEENT: No Rhinorrhea, nasal congestion, visual changes Cardiovascular: No chest pain, syncope, palpitations, lightheadedness Respiratory: SOB No Cough, Hemoptysis, Gastrointestinal: Abdominal pain, Nausea, Vomiting, Constipation, No Diarrhea, Melena Genitourinary: No Dysuria, Frequency, Urgency, Hesitancy, Hematuria, Flank pain Musculoskeletal: No Myalgia, arthralgia Skin: No rashes, itching, bruising, pallor Neurologic: No Headache, Dizziness, Numbness, Weakness, or Tingling Psychiatric: No Hallucinations. No SI or HI *Physical Exam - Vital Signs Last Vital Signs Temp Pulse Resp BP Pulse Ox 98.2 F 114 H 18 147/65 98 09/24/19 13:22 09/24/19 13:22 09/24/19 13:22 09/24/19 13:22 09/24/19 13:22 - Physical Exam 09/24/19 16:05 General Appearance: Nourished. No Apparent Distress HEENT: No Pharyngeal Erythema, Tonsillar Exudate, Tonsillar Erythema Neck: No Cervical Lymphadenopathy Respiratory/Chest: Lungs Clear, Normal Breath Sounds. No Crackles, Rales, Rhonchi, Wheezing Cardiovascular: Regular Rhythm, Regular Rate. No Murmur, Gallops, Rubs Gastrointestinal/Abdominal: Normal Bowel Sounds, Soft. Epigastric tenderness to palpation on exam. No Guarding, Rebound, Musculoskeletal: No CVA Tenderness Extremity: Normal Capillary Refill Integumentary: Normal Color, Dry, Warm Neurologic: Fully Oriented, Alert, Normal Mood/Affect, Normal Response, ED Treatment Course - LABORATORY CBC & Chemistry Diagram: 09/25/19 07:47 09/25/19 07:47 - ADDITIONAL ORDERS Additional order review: 09/24/19 14:13 RBC 3.86 MCV 90.8 MCHC 33.7 RDW 14.4 MPV 7.4 L Neutrophils % 91.9 H Lymphocytes % 4.0 L D Monocytes % 3.4 L Eosinophils % 0.4 Basophils % 0.3 Medical Decision Making - Medical Decision Making 09/24/19 16:06 The patient is a 79 year old female with a history of HTN, HLD, partial SBO, Breast CA, Interstitial lung disease who presents for evaluation of abdominal pain, nausea, and vomiting. Given the patient's history and physical exam, we will obtain a cbc, cmp, troponin, lipase, ekg, chest plain film, CT abdomen/ pelvis to evaluate further. We will treat with pepcid, zofran, tylenol and continue to monitor and reassess while here in the ED. 09/24/19 20:36 CBC, cmp, troponin, lipase were unremarkable. Chest plain film does not demonstrate any acute process. Patient signed out to Dr. Reyes pending CT abdomen/pelvis Discharge - Discharge Information Problems reviewed: Yes Clinical Impression/Diagnosis: Hyponatremia, Persistent vomiting Abdominal pain Qualifiers: Abdominal location: epigastric Qualified Code(s): R10.13 - Epigastric pain Condition: Good - Follow up/Referral - Patient Discharge Instructions - Post Discharge Activity
[2019-09-24] MEDS ORDERED: ONDANSETRON 4 MG/2 ML VIAL IVPUSH ONE ×2 (14:36→21:14)
[2019-09-24] MEDS ORDERED: FAMOTIDINE 20 MG/50 ML IVPB 20 MG/50 ML MG IVPB ONE ×2 (14:36→16:53)
[2019-09-24 14:56] LABS: PLATELET ESTIMATE NORMAL
[2019-09-24 15:05] LABS: ALBUMIN 3.3 g/dl (3.4-5.0); ALK PHOS 88 U/L (45-117); ANION GAP 8 MMOL/L (8-16); BILIRUBIN,TOTAL 0.4 mg/dL (0.2-1); CALCIUM 8.4 mg/dL (8.5-10.1); CHLORIDE 86 mmol/L (98-107); CO2 32 mmol/L (21-32); CREATININE 0.3 mg/dL (0.55-1.3); GLUCOSE,RANDOM 121 mg/dL (74-106); LIPASE 39 U/L (73-393); POTASSIUM 4.1 mmol/L (3.5-5.1); SGOT/AST 34 U/L (15-37); SGPT/ALT 17 U/L (13-61); SODIUM 126 mmol/L (136-145); TOT PROT 8.2 g/dl (6.4-8.2)
[2019-09-24] MEDS: ACETAMINOPHEN 1000 MG/100 ML VIAL (NON FORMULARY) IVPB ONE ×2 (16:51→17:59)
[2019-09-24] MEDS ORDERED: ONDANSETRON 4 MG/2 ML VIAL ONE ×2 (16:53→21:19)
[2019-09-24] MEDS ORDERED: ACETAMINOPHEN INJECTION 100 ML IVPB ONE (16:53)
--- NOTE | 2019-09-24 22:21 | PN ---
Teaching Attending Note Name of Resident: Rosario Mcneil ATTENDING PHYSICIAN STATEMENT I saw and evaluated the patient. I reviewed the resident's note and discussed the case with the resident. I agree with the resident's findings and plan as documented. SUBJECTIVE: 79 year old female with a history of HTN, HLD, partial SBO, Breast CA, Interstitial lung disease who presents for evaluation of abdominal pain, nausea , and vomiting. The patient reports a 4 day history of sharp epigastric abdominal pain with associated nausea. She reported multiple episodes of non- bilious, non-bloody vomiting 1 day ago with worsening pain prompting her To seek medical attention. OBJECTIVE: Last Vital Signs Temp Pulse Resp BP Pulse Ox 98.2 F 98 H 18 128/53 L 93 L 09/24/19 13:22 09/25/19 00:43 09/25/19 00:43 09/25/19 00:43 09/25/19 00:43 GENERAL: Elderly, frail, not in acute distress HEENT: Normocephalic, atraumatic. PERRLA, EOMI. No conjunctival pallor. Sclera are non- icteric. Dry oral mucosa NECK: Supple. Full ROM. No JVD. Carotid pulses 2+ and symmetric, without bruits. No thyromegaly. No lymphadenopathy. CARDIOVASCULAR: Regular rate and rhythm. No murmurs, rubs, or gallops. Distal pulses are 2+ and symmetric. PULMONARY: No evidence of respiratory distress. Lungs clear to auscultation bilaterally. No wheezing, rales or rhonchi. ABDOMINAL: Soft. Non-tender. Non-distended. No rebound or guarding. No organomegaly. Normoactive bowel sounds. MUSCULOSKELETAL Normal range of motion at all joints. No bony deformities or tenderness. No CVA tenderness. EXTREMITIES: No cyanosis. No clubbing. No edema. No calf tenderness. SKIN: Warm and dry. Normal capillary refill. No rashes. No jaundice. PSYCHIATRIC: Uncooperative Abnormal Lab Results 09/24/19 09/24/19 09/24/19 14:13 14:13 20:17 MPV 7.4 L Absolute Neuts (auto) 8.7 H Neutrophils % 91.9 H Neutrophils % (Manual) 88.0 H Lymphocytes % 4.0 L D Lymphocytes % (Manual) 6.0 L D Monocytes % 3.4 L Sodium 126 L Chloride 86 L BUN 6.0 L Creatinine 0.3 L Random Glucose 121 H Calcium 8.4 L Albumin 3.3 L Lipase 39 L Ur Specific [place] 1.055 H Imaging studies reviewed CT of abdomen pelvis with report was reviewed, no definitive CT findings or acute pathology. There is no obvious interval change in comparison to prior CT from 02/27/2019. Partially imaged lower chest demonstrated evidence of extensive chronic interstitial changes. Chest x-ray showed no acute change since prior study, chronic interstitial nodular lung changes ASSESSMENT AND PLAN: 79-year-old woman with persistent nausea and vomiting and electrolyte derangements may be secondary to this, hyponatremia, hypochloremia consistent with excessive vomiting. Suspect possible adverse medication effect. Suspect patient is intravascularly fluid depleted at this time secondary to excessive vomiting. Admit to MedSurg Check orthostatics Send serum osmoles, urine osmoles, urine lites, TSH IV fluid hydration with normal saline for intravascular fluid repletion Bedrest and fall precautions Zofran PRN if continued nausea or vomiting Advance diet as tolerated #Epigastric painsuspect may be secondary to excessive vomiting Protonix 40 mg p.o. daily #Rheumatoid arthritis Continue home dose medications including prednisone 5 mg p.o. daily, sulfasalazine, cyclobenzaprine #DVT prophylaxis Heparin subcutaneously
[2019-09-24 22:37] LABS: URINE APPEARANCE CLEAR; URINE BILIRUBIN NEGATIVE (NEGATIVE); URINE COLOR YELLOW; URINE GLUCOSE (UA) NEGATIVE (NEGATIVE); URINE KETONE 15 mg/dl (NEGATIVE); URINE LEUK ESTERASE NEGATIVE (NEGATIVE); URINE NITRITE NEGATIVE (NEGATIVE); URINE PROTEIN NEGATIVE (NEGATIVE); URINE UROBILINOGEN 0.2 mg/dL (0.2-1.0)
--- NOTE | 2019-09-24 22:40 | PDOC ---
*Physical Exam - Vital Signs Last Vital Signs Temp Pulse Resp BP Pulse Ox 98.2 F 114 H 18 147/65 100 09/24/19 13:22 09/24/19 13:22 09/24/19 13:22 09/24/19 13:22 09/24/19 19:02 ED Treatment Course - LABORATORY CBC & Chemistry Diagram: 09/24/19 14:13 09/24/19 14:13 - ADDITIONAL ORDERS Additional order review: Laboratory Results 09/24/19 09/24/19 20:17 14:13 Sodium 126 L Potassium 4.1 Chloride 86 L Carbon Dioxide 32 Anion Gap 8 BUN 6.0 L Creatinine 0.3 L Est GFR (CKD-EPI)AfAm 127.10 Est GFR (CKD-EPI)NonAf 109.67 Random Glucose 121 H Calcium 8.4 L Total Bilirubin 0.4 AST 34 ALT 17 Alkaline Phosphatase 88 Creatine Kinase 131 Troponin I < 0.02 Total Protein 8.2 Albumin 3.3 L Lipase 39 L Urine Color Yellow Urine Appearance Clear Urine pH 8.0 Ur Specific [place] 1.055 H Urine Protein Negative Urine Glucose (UA) Negative Urine Ketones 15 mg/dl Urine Blood Trace Urine Nitrite Negative Urine Bilirubin Negative Urine Urobilinogen 0.2 Ur Leukocyte Esterase Negative 09/24/19 14:13 RBC 3.86 MCV 90.8 MCHC 33.7 RDW 14.4 MPV 7.4 L Neutrophils % 91.9 H Lymphocytes % 4.0 L D Monocytes % 3.4 L Eosinophils % 0.4 Basophils % 0.3 - Medications Given in the ED: ED Medications Discontinued Medications Generic Name Dose Route Start Last Admin Trade Name Lopez PRN Reason Stop Dose Admin Acetaminophen 1,000 mg 09/24/19 14:36 09/24/19 17:59 Ofirmev Injection - IVPB 09/24/19 14:37 1,000 mg ONCE ONE Administration Famotidine/Sodium Chloride 20 mg in 50 mls @ 100 mls/hr 09/24/19 14:36 16:51 Pepcid 20 Mg Premixed Ivpb - IVPB 09/24/19 15:05 100 mls/hr ONCE ONE Administration Ondansetron HCl 4 mg 09/24/19 14:36 09/24/19 16:51 Zofran Injection IVPUSH 09/24/19 14:37 4 mg ONCE ONE Administration Ondansetron HCl 4 mg 09/24/19 21:14 09/24/19 21:26 Zofran Injection IVPUSH 09/24/19 21:15 4 mg ONCE ONE Administration Discharge - Discharge Information Problems reviewed: No Clinical Impression/Diagnosis: Hyponatremia, Persistent vomiting Abdominal pain Qualifiers: Abdominal location: epigastric Qualified Code(s): R10.13 - Epigastric pain Condition: Good - Admission Yes - Follow up/Referral Referrals: Laverne Chow MD [Primary Care Provider] - - Patient Discharge Instructions - Post Discharge Activity
[2019-09-24] MEDS ORDERED: SODIUM CHLORIDE 1,000 ML IV SCH (22:45)
[2019-09-24] MEDS ORDERED: METOCLOPRAMIDE HCL INJECTION 10 MG/2 ML VIAL IVPUSH STA (22:49)
[2019-09-24] MEDS ORDERED: METOCLOPRAMIDE HCL INJECTION 10 MG/2 ML VIAL ONE (23:28)
--- NOTE | 2019-09-25 00:13 | HP ---
CHIEF COMPLAINT: intractable vomiting PCP: Laverne De HISTORY OF PRESENT ILLNESS: 79 yo F with a history of HTN, HLD, partial SBO, Breast Cancer treated with chemotherapy and mastectomy, ILD (on 2 L Home oxygen), RA, osteoporosis, and depression, presenting to the ED with 1 week history of n/v, epigastric pain, and a burning feeling on her tongue and palate. Patient reports the abdominal pain gets worse when she eats leading to a feeling of being full of water though she sometimes wake up due to nausea. The patient describes the vomit as non-bloody and non-bilious. The patient states that she has had nausea and vomiting regularly for the past year after starting Humira by Dr. Ceja, which improved slightly but persisted after switching to Abatacept. Patient endorses eating today as well as a bowel movement and passing gas earlier today. The patient denies blood in the stool but complains of straining to defecate. The patient claims she had a colonoscopy less than 1 year ago significant for polyps to be monitored by Dr. Nugent. The patient is on 2L of oxygen at home for her ILD treated by Dr. Grissom. Patient claims that her baseline sodium level is 130 and that she was on a sodium pill until recently when it was discontinued by Dr. Cagle. Patient denies fever, chills, SOB, chest pain or sensory changes. Patient is hungarian speaking and her daughter was present to translate. ER course was notable for: (1) CBC unremarkable, CMP remarkable for hyponatremitia at 126 ( baseline at 129 -130), hypochloremic at 86 (2) UA remarkable for specific gravity at 1.055. EKG sinus tachy with premature complexes QTC 489 (3)zofran and reglan, and NS, CXR evidence of pulmonary fibrosis Recent Travel: none PAST MEDICAL HISTORY: as above PAST SURGICAL HISTORY: left breast mastectomy, cervical spinal fusion c3-C7 Social History: denies Smoking:denies Alcohol:denies Drugs: denies Allergies Penicillins Allergy (Severe, Verified 09/24/19 13:26) Difficulty Breathing HOME MEDICATIONS: Home Medications Medication Instructions Recorded Calcium Carbonate [Calcium] 600 mg PO DAILY 03/30/18 Folic Acid 1 mg PO DAILY 03/30/18 Mirtazapine [Remeron -] 7.5 mg PO HS 03/30/18 Prednisone 5 mg PO DAILY 03/30/18 Abatacept [Orencia Clickject] 125 mg SQ WEEKLY 02/27/19 Cyclobenzaprine HCl 10 mg PO PRN 02/27/19 Gabapentin 300 mg PO DAILY 02/27/19 Montelukast Sodium [Singulair] 10 mg PO HS 02/27/19 Ranitidine [Zantac -] 150 mg PO HS 02/27/19 Sulfasalazine 1,000 mg PO BID 09/24/19 REVIEW OF SYSTEMS CONSTITUTIONAL: loss of appetite Absent: fever, chills, diaphoresis, generalized weakness, malaise, weight change HEENT: Absent: rhinorrhea, nasal congestion, throat pain, throat swelling, difficulty swallowing, mouth swelling, ear pain, eye pain, visual changes CARDIOVASCULAR: Absent: chest pain, syncope, palpitations, irregular heart rate, lightheadedness , peripheral edema RESPIRATORY: shortness of breath Absent: cough, dyspnea with exertion, orthopnea, wheezing, stridor, hemoptysis GASTROINTESTINAL:epigastric discomfort, nausea, vomiting Absent: , abdominal distension, diarrhea, constipation, melena, hematochezia GENITOURINARY: Absent: dysuria, frequency, urgency, hesitancy, hematuria, flank pain, genital pain MUSCULOSKELETAL: Absent: myalgia, arthralgia, joint swelling, back pain, neck pain SKIN: Absent: rash, itching, pallor HEMATOLOGIC/IMMUNOLOGIC: Absent: easy bleeding, easy bruising, lymphadenopathy, frequent infections ENDOCRINE: Absent: unexplained weight gain, unexplained weight loss, heat intolerance, cold intolerance NEUROLOGIC: Absent: headache, focal weakness or paresthesias, dizziness, unsteady gait, seizure, mental status changes, bladder or bowel incontinence PSYCHIATRIC: depression Absent: anxiety,suicidal or homicidal ideation, hallucinations. PHYSICAL EXAMINATION Vital Signs - 24 hr 09/24/19 09/24/19 13:22 19:02 Temperature 98.2 F Pulse Rate 114 H Respiratory 18 Rate Blood Pressure 147/65 O2 Sat by Pulse 98 100 Oximetry (%) GENERAL: Awake, alert, and fully oriented, in no acute distress. HEAD: Normal with no signs of trauma. EYES: Pupils equal, round and reactive to light, extraocular movements intact, sclera anicteric, conjunctiva clear. No lid lag. EARS, NOSE, THROAT: Ears normal, nares patent, oropharynx clear without exudates. Moist mucous membranes. NECK: Normal range of motion, supple without lymphadenopathy, JVD, or masses. LUNGS: Breath sounds equal, clear to auscultation bilaterally. fine dry crackles b/l HEART: Regular rate and rhythm, normal S1 and S2 without murmur, rub or gallop. ABDOMEN: Soft, nontender, not distended, normoactive bowel sounds, no guarding, no rebound, no masses. No hepatomegaly or splenomegaly. MUSCULOSKELETAL: RA deformities with ulnar deviation and right thumb deformity UPPER EXTREMITIES: 2+ pulses, warm, well-perfused. No cyanosis. No clubbing. No peripheral edema. LOWER EXTREMITIES: 2+ pulses, warm, well-perfused. No calf tenderness. No peripheral edema. NEUROLOGICAL: Cranial nerves II-XII intact. Normal speech. PSYCHIATRIC: Cooperative. Good eye contact. Appropriate mood and affect. SKIN: Warm, dry, normal turgor, no rashes or lesions noted, normal capillary refill. Laboratory Results - last 24 hr 09/24/19 09/24/19 09/24/19 14:13 14:13 20:17 WBC 9.5 RBC 3.86 Hgb 11.8 Hct 35.1 MCV 90.8 MCH 30.6 MCHC 33.7 RDW 14.4 Plt Count 410 MPV 7.4 L Absolute Neuts (auto) 8.7 H Neutrophils % 91.9 H Neutrophils % (Manual) 88.0 H Band Neutrophils % 0.0 Lymphocytes % 4.0 L D Lymphocytes % (Manual) 6.0 L D Monocytes % 3.4 L Monocytes % (Manual) 4 Eosinophils % 0.4 Eosinophils % (Manual) 1.0 D Basophils % 0.3 Basophils % (Manual) 1.0 D Myelocytes % (Man) 0 Promyelocytes % (Man) 0 Blast Cells % (Manual) 0 Nucleated RBC % 0 Metamyelocytes 0 D Platelet Estimate Normal Sodium 126 L Potassium 4.1 Chloride 86 L Carbon Dioxide 32 Anion Gap 8 BUN 6.0 L Creatinine 0.3 L Est GFR (CKD-EPI)AfAm 127.10 Est GFR (CKD-EPI)NonAf 109.67 Random Glucose 121 H Calcium 8.4 L Total Bilirubin 0.4 AST 34 ALT 17 Alkaline Phosphatase 88 Creatine Kinase 131 Troponin I < 0.02 Total Protein 8.2 Albumin 3.3 L Lipase 39 L Urine Color Yellow Urine Appearance Clear Urine pH 8.0 Ur Specific [place] 1.055 H Urine Protein Negative Urine Glucose (UA) Negative Urine Ketones 15 mg/dl Urine Blood Trace Urine Nitrite Negative Urine Bilirubin Negative Urine Urobilinogen 0.2 Ur Leukocyte Esterase Negative ASSESSMENT/PLAN: 79 yo F with a history of HTN, partial SBO, Breast Cancer treated with chemotherapy and mastectomy, ILD (on 2 L Home oxygen), RA, osteoporosis, and depression, presenting to the ED with 1 week history of n/v, epigastric discomfort and burning tongue admitted for intractable nausea/ vomiting poss due to medications specifically biologics for rheumatoid arthritis vs Intractable nausea/vomiting poss due to biologics for RA epigastric discomfort vs PUD (on steroids and occasional use of her protonix ) vs Acute gastroenteritis ( no change in diet) zofran for nausea and vomiting. QTC boderline prolongued at 483. NS@ 83 cc/hr for hydration protonix IV 40 daily orthostatics Last documented barium swallow small hiatal hernia w/o evidence of PUD in 2011 Hyponatremia and hypochloremia according to pt sodium usually in the 129-130 No longer on salt tablet since 6 months cont NS@ 83 to improve NaCl level serum/urine osms ordered urine electrolytes RA cont sulfasalizine once confirmed HTN resume home meds ILD continue prednisone 5mg 2L NC Depression cont home meds Osteoporosis cont calcium and vit D once able to tolerate PO FEN advance diet as tolerated NS@ 83 DVT hep subQ Visit type - Emergency Visit Emergency Visit: Yes ED Registration Date: 09/24/19 Care time: The patient presented to the Emergency Department on the above date and was hospitalized for further evaluation of their emergent condition. - New Patient This patient is new to me today: Yes Date on this admission: 09/25/19 - Critical Care Critical Care patient: No ATTENDING PHYSICIAN STATEMENT I saw and evaluated the patient. I reviewed the resident's note and discussed the case with the resident. I agree with the resident's findings and plan as documented. SUBJECTIVE: OBJECTIVE: ASSESSMENT AND PLAN:
[2019-09-25] MEDS ORDERED: ACETAMINOPHEN 325 MG TABLET (FP) ONE (01:35)
[2019-09-25] MEDS: ACETAMINOPHEN 325 MG TABLET (FP) PO PRN (01:44)
[2019-09-25] MEDS ORDERED: ONDANSETRON 4 MG/2 ML VIAL IVPUSH PRN (06:12)
[2019-09-25] MEDS: HEPARIN NA (PORCINE) 5,000 UNITS/ML 1ML VIAL SQ SCH ×3 (06:21→22:57)
[2019-09-25] MEDS: SODIUM CHLORIDE 1,000 ML IV SCH ×2 (06:22→17:27)
[2019-09-25] MEDS ORDERED: FLU VACCINE QUAD 60 MCG/0.5 ML (MDV 19-20) IM ONE (08:00)
[2019-09-25 08:13] LABS: BASO % 0.8 % (0-2.0); EOS % 1.3 % (0-4.5); HEMATOCRIT 31.4 % (32.4-45.2); HEMOGLOBIN 10.3 GM/dL (10.7-15.3); LYMPH % 16.2 % (8-40); MCH 30.3 pg (25.7-33.7); MCHC 32.9 g/dl (32.0-36.0); MEAN CELL VOLUME 92.1 fl (80-96); MEAN PLT VOLUME 7.1 fl (7.5-11.1); MONO % 11.1 % (3.8-10.2); NEUT % 70.6 % (42.8-82.8); PLATELET COUNT 358 K/MM3 (134-434); RBC 3.41 M/mm3 (3.60-5.2); WHITE BLOOD COUNT 4.8 K/mm3 (4.0-10.0)
[2019-09-25 08:42] LABS: ALBUMIN 2.7 g/dl (3.4-5.0); BILIRUBIN,TOTAL 0.3 mg/dL (0.2-1); CALCIUM 7.5 mg/dL (8.5-10.1); CREATININE 0.3 mg/dL (0.55-1.3); POTASSIUM 4.1 mmol/L (3.5-5.1); TOT PROT 6.9 g/dl (6.4-8.2)
[2019-09-25] MEDS ORDERED: PANTOPRAZOLE SODIUM 40 MG VIAL IVPUSH SCH (10:00)
[2019-09-25 12:06] LABS: URIC ACID 2.5 mg/dL (2.6-7.2)
--- NOTE | 2019-09-25 12:41 | EKG ---
Test Reason : Blood Pressure : / mmHG Vent. Rate : 110 BPM Atrial Rate : 110 BPM P-R Int : 148 ms QRS Dur : 076 ms QT Int : 362 ms P-R-T Axes : 053 -49 025 degrees QTc Int : 489 ms SINUS TACHYCARDIA WITH PREMATURE SUPRAVENTRICULAR COMPLEXES LEFT ANTERIOR FASCICULAR BLOCK MODERATE VOLTAGE CRITERIA FOR LVH, MAY BE NORMAL VARIANT ABNORMAL ECG WHEN COMPARED WITH ECG OF 27-FEB-2019 14:52, NO SIGNIFICANT CHANGE WAS FOUND Confirmed by LOKESH CROWLEY MD ([id number]) on 09/25/2019 12:41:20 PM Referred By: Confirmed By:LOKESH CROWLEY MD
[2019-09-25] MEDS ORDERED: PROCHLORPERAZINE INJECTION 10 MG/2 ML VIAL IVPB SCH ×2 (13:30→13:36)
[2019-09-25] MEDS ORDERED: PROCHLORPERAZINE INJECTION 10 MG/2 ML VIAL IVPB PRN (13:41)
--- NOTE | 2019-09-25 15:27 | PN ---
Physical Exam: SUBJECTIVE: Patient seen and examined at the bedside. Patient noted that she had 1 week's worth of nausea and vomiting and inability to tolerate PO intake. She notes that she eats she feels pain in her epigastric region. At the bedside , the patient denied any symptoms of cp, sob, abd pain, n/v/c/d, fever, chills, headaches, dizziness, lightheadness, numbness, tingling. Patient was noted to tolerate clear liquid diet but had an episode of NB/NB vomiting with solid foods. OBJECTIVE: Vital Signs Period Temp Pulse Resp BP Sys/Duffy Pulse Ox Last 24 Hr 98 F-98.1 F 88-98 18-20 91-128/46-68 93-100 GENERAL: The patient is awake, alert, and fully oriented, in no acute distress. HEAD: Normal with no signs of trauma. EYES: PERRL, extraocular movements intact, sclera anicteric, conjunctiva clear. ENT: Oropharynx clear without exudates, moist mucous membranes. NECK: Trachea midline, full range of motion, supple. LUNGS: Breath sounds equal, clear to auscultation bilaterally, no wheezes, no crackles, no accessory muscle use. HEART: Regular rate and rhythm, S1, S2 without murmur, rub. ABDOMEN: Soft, nontender, nondistended, normoactive bowel sounds, no guarding, no rebound, no masses. EXTREMITIES: 2+ pulses, warm, well-perfused, no edema. NEUROLOGICAL: Cranial nerves II through XII grossly intact. 5/5 muscle strength upper and lower extremities, bilaterally. PSYCH: Normal mood, normal affect. SKIN: Warm, dry, normal turgor, no rashes or lesions noted. Laboratory Results - last 24 hr 09/24/19 09/25/19 09/25/19 20:17 07:47 07:47 WBC 4.8 RBC 3.41 L Hgb 10.3 L Hct 31.4 L MCV 92.1 MCH 30.3 MCHC 32.9 RDW 14.0 Plt Count 358 MPV 7.1 L Absolute Neuts (auto) 3.4 Neutrophils % 70.6 D Lymphocytes % 16.2 D Monocytes % 11.1 H D Eosinophils % 1.3 D Basophils % 0.8 Nucleated RBC % 0 Sodium 130 L Potassium 4.1 Chloride 90 L Carbon Dioxide 36 H Anion Gap 4 L BUN 5.0 L Creatinine 0.3 L Est GFR (CKD-EPI)AfAm 127.10 Est GFR (CKD-EPI)NonAf 109.67 Random Glucose 77 Serum Osmolality Uric Acid 2.5 L Calcium 7.5 L Phosphorus 3.0 Magnesium 2.0 Total Bilirubin 0.3 AST 26 ALT 14 Alkaline Phosphatase 74 Total Protein 6.9 Albumin 2.7 L Urine Color Yellow Urine Appearance Clear Urine pH 8.0 Ur Specific [place] 1.055 H Urine Protein Negative Urine Glucose (UA) Negative Urine Ketones 15 mg/dl Urine Blood Trace Urine Nitrite Negative Urine Bilirubin Negative Urine Urobilinogen 0.2 Ur Leukocyte Esterase Negative 09/25/19 07:47 WBC RBC Hgb Hct MCV MCH MCHC RDW Plt Count MPV Absolute Neuts (auto) Neutrophils % Lymphocytes % Monocytes % Eosinophils % Basophils % Nucleated RBC % Sodium Potassium Chloride Carbon Dioxide Anion Gap BUN Creatinine Est GFR (CKD-EPI)AfAm Est GFR (CKD-EPI)NonAf Random Glucose Serum Osmolality 269 L Uric Acid Calcium Phosphorus Magnesium Total Bilirubin AST ALT Alkaline Phosphatase Total Protein Albumin Urine Color Urine Appearance Urine pH Ur Specific [place] Urine Protein Urine Glucose (UA) Urine Ketones Urine Blood Urine Nitrite Urine Bilirubin Urine Urobilinogen Ur Leukocyte Esterase Active Medications Generic Name Dose Route Start Last Admin Trade Name Freq PRN Reason Stop Dose Admin Acetaminophen 650 mg 09/25/19 01:22 09/25/19 01:44 Tylenol - PO 650 mg Q4H PRN Administration HEADACHE Heparin Sodium (Porcine) 5,000 unit 09/25/19 06:00 09/25/19 14:22 Heparin - SQ 5,000 unit TID JOSE Administration Sodium Chloride 1,000 mls @ 83 mls/hr 09/25/19 01:27 09/25/19 06:22 Normal Saline - IV 83 mls/hr ASDIR JOSE Administration Pantoprazole Sodium 40 mg 09/26/19 10:00 Protonix - PO DAILY JOSE Prochlorperazine Edisylate 5 mg 09/25/19 13:41 Compazine Injection - IVPB Q4H PRN NAUSEA AND/OR VOMITING ASSESSMENT/PLAN: Sweta Bhatia is a 79 year old female with a history of HTN, partial SBO, Breast Cancer treated with chemotherapy and mastectomy, ILD (on 2 L Home oxygen), RA, osteoporosis, and depression admitted for intractable nausea/vomiting. Intractable nausea/vomiting likely due to biologics for RA epigastric discomfort vs PUD (on steroids and occasional use of her protonix ) vs Acute gastroenteritis - Abd CT with no acute pathology - compazine for nausea and vomiting. QTC boderline prolongued at 483. - NS@ 83 cc/hr for hydration - protonix 40 mg daily - Last documented barium swallow small hiatal hernia w/o evidence of PUD in 2011 - currently on clear liquid diet and is maximum patient has thus far tolerated - gastroenterology consulted Hyponatremia and hypochloremia - according to pt sodium usually in the 129-130, currently 130 - no current neurologic symptoms - No longer on salt tablets as per her registered private duty nurse - cont NS@ 83 to improve NaCl level - serum osms decrease, true hyponatremia - urine electrolytes, urine osms ordered RA - cont home sulfasalizine HTN - resume home meds ILD - continue prednisone 5mg - Singular, symbicort, albuterol - 2L NC Depression - cont home meds Osteoporosis - cont calcium and vit D Prophylaxis - heparin 5000 units sq tid FEN - NS at 83cc/hr - continue to monitor electrolytes and replete as necessary - advance diet as tolerated, clear liquid diet Dispo - continue to monitor on Med-surg Visit type - Emergency Visit Emergency Visit: Yes ED Registration Date: 09/24/19 Care time: The patient presented to the Emergency Department on the above date and was hospitalized for further evaluation of their emergent condition. - New Patient This patient is new to me today: Yes Date on this admission: 09/25/19 - Critical Care Critical Care patient: No
[2019-09-25] MEDS ORDERED: CHOLECALCIFEROL (VIT D3) 400 UNIT (10 MCG) TABLET PO SCH (15:45)
[2019-09-25] MEDS ORDERED: BUDESONIDE/FORMETEROL FUMARATE 160/4.5 mcg INHALER IH SCH (15:45)
[2019-09-25] MEDS ORDERED: CYCLOBENZAPRINE HCL 10 MG TABLET (FP) PO SCH (15:45)
--- NOTE | 2019-09-25 16:27 | PDOC ---
Documentation entered by Hazel Olivier SCRIBE, acting as scribe for Angela Harris MD. Angela Harris MD: This documentation has been prepared by the [employer] Nirvannie, SCRIBE, under my direction and personally reviewed by me in its entirety. I confirm that the documentation accurately reflects all work, treatment, procedures, and medical decision making performed by me. Attending Attestation - Resident Resident Name: Anshul Lucas - ED Attending Attestation I have performed the following: I have examined & evaluated the patient, The case was reviewed & discussed with the resident, I agree w/resident's findings & plan, Exceptions are as noted - HPI HPI: 09/24/19 16:38 History obtained using [employer] medical laboratory technician Dusty [id number] The patient is a 79 year old female, with a significant past medical history of breast cancer, hypertension, hyperlipidemia, hyponatremia (no longer on sodium tabs), chronic interstitial lung disease, breast cancer, rheumatoid arthiritis and depression, who presents to the emergency department with 4 days of intermittent sharp epigastric abdominal pain with associated nausea and 1 episode of NBNB emesis yesterday. She endorses associated straining with micturating and defecating with associated burning sensation to the tongue. She also reports 2 years of SOB for which she states Dr. Davidson has prescribed to her nebulizers and oxygen PRN. She denies recent diarrhea or constipation. She denies recent dysuria, frequency , urgency or hematuria. She denies recent chest pain. Allergies: Penicillins. - Physicial Exam PE: 09/25/19 16:16 GENERAL: Awake, alert, and fully oriented, in no acute distress HEAD: No signs of trauma EYES: PERRLA, EOMI, sclera anicteric, conjunctiva clear ENT: Hearing grossly normal, nares patent, +b/l angular chelitis, oropharynx clear without exudates. Moist mucosa NECK: Normal ROM, supple, no lymphadenopathy, JVD, or masses LUNGS: Breath sounds equal, clear to auscultation bilaterally. No wheezes, + diffuse fine crackles HEART: Regular rate and rhythm, normal S1 and S2, no murmurs, rubs or gallops ABDOMEN: Soft, +epigasric ttp , normoactive bowel sounds. No guarding, no rebound. No masses EXTREMITIES: +Multiple boutinere and swan neck deformities to b/l hands. Otherwise, normal range of motion, no edema. No clubbing or cyanosis. No cords, erythema, or tenderness BACK: No midline spinal tenderness in cervical/thoracic/lumbar region NEUROLOGICAL: Normal speech, cranial nerves intact, equal strength and sensation b/l SKIN: Warm, Dry, normal turgor, no rashes or lesions noted. - Medical Decision Making 09/24/19 16:20 79yo F with MMP presents to the ED with abd pain a/w N/V and burning sensation to the tongue. Vitals initially with tachycardia to 114 DDx includes pancreatitis vs GERD vs nutritional deficiency vs metabolic disarray vs cholecystitis Plan: -labs -CTAP -UA -reassess 09/24/19 16:40 Labs with hyponatremia, otherwise unremarkable. Unclear if hyponatremia chronic or acute. CTAP and UA pending Case signed out to Dr. Reyes for further mgmt/dispo
--- NOTE | 2019-09-25 17:07 | PN ---
Teaching Attending Note Name of Resident: Jovani Mistry ATTENDING PHYSICIAN STATEMENT I saw and evaluated the patient. I reviewed the resident's note and discussed the case with the resident. I agree with the resident's findings and plan as documented. SUBJECTIVE: Reports improvement in abdominal pain/nausea/vomiting. No fever/ chills. No diarrhea/melena/hematochezia. OBJECTIVE: Afebrile, hemodynamically stable. Last Vital Signs Temp Pulse Resp BP Pulse Ox 98.1 F 88 20 91/46 L 100 09/25/19 14:50 09/25/19 14:50 09/25/19 09:59 09/25/19 14:50 09/25/19 09:00 HEENT - Atraumatic, normocephalic. Heart - S1, S2, soft SM Lungs - clear to auscultations. Abdomen - Soft, non-tender. Bowel Sounds normal. Extremities - no edema, no calf tenderness. RA deformities bilateral hands. Neuro - AAO x 3. Tone/Power normal all extremities. Laboratory Results - last 24 hr 09/24/19 09/25/19 09/25/19 20:17 07:47 07:47 WBC 4.8 RBC 3.41 L Hgb 10.3 L Hct 31.4 L MCV 92.1 MCH 30.3 MCHC 32.9 RDW 14.0 Plt Count 358 MPV 7.1 L Absolute Neuts (auto) 3.4 Neutrophils % 70.6 D Lymphocytes % 16.2 D Monocytes % 11.1 H D Eosinophils % 1.3 D Basophils % 0.8 Nucleated RBC % 0 Sodium 130 L Potassium 4.1 Chloride 90 L Carbon Dioxide 36 H Anion Gap 4 L BUN 5.0 L Creatinine 0.3 L Est GFR (CKD-EPI)AfAm 127.10 Est GFR (CKD-EPI)NonAf 109.67 Random Glucose 77 Serum Osmolality Uric Acid 2.5 L Calcium 7.5 L Phosphorus 3.0 Magnesium 2.0 Total Bilirubin 0.3 AST 26 ALT 14 Alkaline Phosphatase 74 Total Protein 6.9 Albumin 2.7 L Urine Color Yellow Urine Appearance Clear Urine pH 8.0 Ur Specific [place] 1.055 H Urine Protein Negative Urine Glucose (UA) Negative Urine Ketones 15 mg/dl Urine Blood Trace Urine Nitrite Negative Urine Bilirubin Negative Urine Urobilinogen 0.2 Ur Leukocyte Esterase Negative 09/25/19 07:47 WBC RBC Hgb Hct MCV MCH MCHC RDW Plt Count MPV Absolute Neuts (auto) Neutrophils % Lymphocytes % Monocytes % Eosinophils % Basophils % Nucleated RBC % Sodium Potassium Chloride Carbon Dioxide Anion Gap BUN Creatinine Est GFR (CKD-EPI)AfAm Est GFR (CKD-EPI)NonAf Random Glucose Serum Osmolality 269 L Uric Acid Calcium Phosphorus Magnesium Total Bilirubin AST ALT Alkaline Phosphatase Total Protein Albumin Urine Color Urine Appearance Urine pH Ur Specific [place] Urine Protein Urine Glucose (UA) Urine Ketones Urine Blood Urine Nitrite Urine Bilirubin Urine Urobilinogen Ur Leukocyte Esterase Current Medications Generic Name Dose Route Start Last Admin Trade Name Freq PRN Reason Stop Dose Admin Acetaminophen 650 mg 09/25/19 01:22 09/25/19 01:44 Tylenol - PO 650 mg Q4H PRN Administration HEADACHE Budesonide/Formoterol Fumarate 160 puff 09/25/19 15:45 Symbicort 160/4.5mcg - IH PRN JOSE Calcium Carbonate 500 mg 09/26/19 10:00 Os-Davis 500mg - PO DAILY [facility] Cholecalciferol unit 09/25/19 15:45 Vitamin D3 - PO WEEKLY JOSE Cyclobenzaprine HCl 10 mg 09/25/19 15:45 Flexeril - PO PRN JOSE Famotidine 20 mg 09/25/19 22:00 Pepcid - PO HS JOSE Folic Acid 1 mg 09/26/19 10:00 Folic Acid - PO DAILY JOSE Gabapentin 300 mg 09/26/19 10:00 Neurontin - PO DAILY JOSE Heparin Sodium (Porcine) 5,000 unit 09/25/19 06:00 09/25/19 14:22 Heparin - SQ 5,000 unit TID JOSE Administration Sodium Chloride 1,000 mls @ 83 mls/hr 09/25/19 01:27 09/25/19 06:22 Normal Saline - IV 83 mls/hr ASDIR JOSE Administration Mirtazapine 7.5 mg 09/25/19 22:00 Remeron - PO HS JOSE Montelukast Sodium 10 mg 09/25/19 22:00 Singulair - PO HS JOSE Pantoprazole Sodium 40 mg 09/26/19 10:00 Protonix - PO DAILY JOSE Prednisone 5 mg 09/26/19 10:00 Deltasone - PO DAILY JOSE Prochlorperazine Edisylate 5 mg 09/25/19 13:41 Compazine Injection - IVPB Q4H PRN NAUSEA AND/OR VOMITING Sulfasalazine 1,000 mg 09/25/19 22:00 Azulfidine En-Tabs - PO BID [facility] Home Medications Medication Instructions Recorded Calcium Carbonate [Calcium] 600 mg PO DAILY 03/30/18 Folic Acid 1 mg PO DAILY 03/30/18 Mirtazapine [Remeron -] 7.5 mg PO HS 03/30/18 Prednisone 5 mg PO DAILY 03/30/18 Abatacept [Orencia Clickject] 125 mg SQ WEEKLY 02/27/19 Cyclobenzaprine HCl 10 mg PO PRN 02/27/19 Gabapentin 300 mg PO DAILY 02/27/19 Montelukast Sodium [Singulair] 10 mg PO HS 02/27/19 Ranitidine [Zantac -] 150 mg PO HS 02/27/19 Sulfasalazine 1,000 mg PO BID 09/24/19 Budesonide/Formeterol Fumarate 160 mcg IH PRN 09/25/19 [SYMBICORT 160/4.5mcg -] Cholecalciferol (Vitamin D3) 50,000 units PO WEEKLY 09/25/19 [Vitamin D -] Montelukast Na [Singulair -] 10 mg PO DAILY 09/25/19 Mv-Mn/Iron/Folic Acid/Herb 190 09/25/19 [Vitamin D3 Complete Caplet] Pantoprazole Sodium [Protonix -] 40 mg PO DAILY 09/25/19 predniSONE [Deltasone -] 5 mg PO DAILY 09/25/19 ASSESSMENT AND PLAN: 79 year old female with a history of HTN, HLD, Hx partial SBO, Breast CA s/p CTx s/p Mastectomy, Interstitial lung disease presents with 4 day history of abdominal pain, nausea, and vomiting. No hematemesis. No diarrhea/melena/ hematochezia. No fever/chills. CT Abdomen/Pelvis - no obvious interval change in comparison to prior CT from . Partially imaged lower chest demonstrated evidence of extensive chronic interstitial changes. Chest X-ray showed no acute change since prior study, chronic interstitial nodular lung changes 1. Hponatremic, Hyperchloremic Metabolic alkalosis secondary to Intractable vomiting. Electrolyte abnormalities resolving with IV hydration Vomited again after a trial of soft diet. ?Gastroparesis versus outlet obstruction Will keep on clears/IV fluids. GI consult with patient's draw press operator Dr. Nugent (had prior endoscopy 4 years ago) On Protonix chronically. Antiemetic. 2. RA - on Sulfasalazine, Abatacept and Prednisone 3. Chronic Interstitial Lung Disease - Synbicort, Prendisone chronically. DVT Px - Heparin SQ
--- NOTE | 2019-09-25 18:47 | CON.GI ---
Consult Consult Specialty:: GI - History of Present Illness History of Present Illness: 79 year old female with a history of HTN, HLD, Hx partial SBO, Breast CA s/p CTx s/p Mastectomy, Interstitial lung disease presents with 4 day history of abdominal pain, nausea, and vomiting. No hematemesis. No diarrhea/melena/ hematochezia. No fever/chills. 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 Because of her respiratory insufficiency, cologard test was requested but was never done. She has chronic nausea and was given Zofran which provided partial relief of her symptoms Patient did well on Reglan and Zofran. - Past Medical History Pulmonary: Yes: Pulmonary Fibrosis Gastrointestinal: Yes: GERD Hepatobiliary: Yes: Cholelithiasis Psych: Yes: Depression (stable on meds) Musculoskeletal: Yes: Osteoarthritis, Other (chronic neck pain since neck fusion and weight loss) Rheumatology: Yes: Rheumatoid Arthritis (was on Cimzia for a number of months, last in December) ENT: Yes: Other (small voicebox nodules/?polyps - resolving per ENT with GERD treatment, no other intervention, per daughter last examined within last 2 weeks ) - Past Surgical History Past Surgical History: Yes: Colonoscopy (last year, had some polyps "burned off " - due next year), Mastectomy (left), Upper Endoscopy (earlier this year) - Alcohol/Substance Use Hx Alcohol Use: No History of Substance Use: reports: None - Smoking History Smoking history: Never smoked Have you smoked in the past 12 months: No - Social History Usual Living Arrangement: With Child Home Medications - Allergies Allergies/Adverse Reactions: Allergies Allergy/AdvReac Type Severity Reaction Status Date / Time Penicillins Allergy Severe Difficulty Verified 09/24/19 13:26 Breathing - Home Medications Home Medications: Ambulatory Orders Calcium Carbonate [Calcium] 600 mg PO DAILY 03/30/18 Folic Acid 1 mg PO DAILY 03/30/18 Mirtazapine [Remeron -] 7.5 mg PO HS 03/30/18 Prednisone 5 mg PO DAILY 03/30/18 Abatacept [Orencia Clickject] 125 mg SQ WEEKLY 02/27/19 Cyclobenzaprine HCl 10 mg PO PRN 02/27/19 Gabapentin 300 mg PO DAILY 02/27/19 Montelukast Sodium [Singulair] 10 mg PO HS 02/27/19 Ranitidine [Zantac -] 150 mg PO HS 02/27/19 Sulfasalazine 1,000 mg PO BID 09/24/19 Budesonide/Formeterol Fumarate [SYMBICORT 160/4.5mcg -] 160 mcg IH PRN 09/25/19 Cholecalciferol (Vitamin D3) [Vitamin D -] 50,000 units PO WEEKLY 09/25/19 Montelukast Na [Singulair -] 10 mg PO DAILY 09/25/19 Mv-Mn/Iron/Folic Acid/Herb 190 [Vitamin D3 Complete Caplet] 09/25/19 Pantoprazole Sodium [Protonix -] 40 mg PO DAILY 09/25/19 predniSONE [Deltasone -] 5 mg PO DAILY 09/25/19 Physical Exam-GI Vital Signs: Vital Signs Temperature 98.1 F 09/25/19 14:50 Pulse Rate 88 09/25/19 14:50 Respiratory Rate 20 09/25/19 09:59 Blood Pressure 91/46 L 09/25/19 14:50 O2 Sat by Pulse Oximetry (%) 100 09/25/19 09:00 Constitutional: Yes: Cachectic Eyes: Yes: Conjunctiva Clear HENT: Yes: Atraumatic Neck: Yes: Trachea Midline Cardiovascular: Yes: Regular Rate and Rhythm Respiratory: Yes: CTA Bilaterally, Diminished ...Palpate: Yes: Soft, Tenderness, Tenderness, Epigastium. No: Firm/Rigid, Guarding, Hepatomegaly, Mass, Pulsatile Mass, Splenomegaly Labs: CBC, BMP 09/25/19 07:47 09/25/19 07:47 Hepatic Panel Total Bilirubin 0.3 mg/dL (0.2-1) 09/25/19 07:47 AST 26 U/L (15-37) 09/25/19 07:47 ALT 14 U/L (13-61) 09/25/19 07:47 Alkaline Phosphatase 74 U/L (45-117) 09/25/19 07:47 Albumin 2.7 g/dl (3.4-5.0) L 09/25/19 07:47 Problem List - Problems (1) Abdominal pain Assessment/Plan: nausea and vomiting r/o peptic ulcer disease, gastroparesis R> oatient is a poor candidate for EGD because of severe interstitial lung disease Pantoprazole 40mg bid Reglan 5 mg every 8 hours Zofran IV Code(s): R10.9 - UNSPECIFIED ABDOMINAL PAIN Qualifiers: Abdominal location: epigastric Qualified Code(s): R10.13 - Epigastric pain (2) Calculus of gallbladder without cholecystitis without obstruction Code(s): K80.20 - CALCULUS OF GALLBLADDER W/O CHOLECYSTITIS W/O OBSTRUCTION
[2019-09-25] MEDS ORDERED: ONDANSETRON 4 MG/2 ML VIAL IVPB STA (19:04)
[2019-09-25] MEDS: BUDESONIDE/FORMETEROL FUMARATE 160/4.5 mcg INHALER IH SCH (22:56)
[2019-09-25] MEDS: sulfaSALAzine 500 MG TABLET PO SCH (22:57)
[2019-09-25] MEDS: MIRTAZAPINE 15 MG TABLET (FP) PO SCH (22:57)
[2019-09-25] MEDS: FAMOTIDINE 20 MG TABLET PO SCH (22:59)
[2019-09-25] MEDS: MONTELUKAST NA 10 MG TABLET PO SCH (22:59)
[2019-09-26] MEDS: METOCLOPRAMIDE HCL INJECTION 10 MG/2 ML VIAL IVPB SCH ×3 (01:17→18:10)
[2019-09-26] MEDS: ACETAMINOPHEN 325 MG TABLET (FP) PO PRN ×2 (03:59→16:56)
[2019-09-26] MEDS: HEPARIN NA (PORCINE) 5,000 UNITS/ML 1ML VIAL SQ SCH ×2 (05:30→14:21)
[2019-09-26] MEDS: SODIUM CHLORIDE 1,000 ML IV SCH ×2 (05:33→05:34)
--- NOTE | 2019-09-26 07:51 | PN ---
Progress Note, Physician History of Present Illness: GI FOLLOW UP NOTE Patient examined and case discussed with Dr Nugent Patient complain of epigastric pain, non-radiating. Denies nausea, vomiting, diarrhea, rectal bleeding, melena. - Current Medication List Current Medications: Active Medications Acetaminophen (Tylenol -) 650 mg PO Q4H PRN PRN Reason: HEADACHE Last Admin: 09/26/19 03:59 Dose: 650 mg Budesonide/Formoterol Fumarate (Symbicort 160/4.5mcg -) 2 puff IH BID [facility] Last Admin: 09/25/19 22:56 Dose: 2 puff Calcium Carbonate (Os-Davis 500mg -) 500 mg PO DAILY [facility] Cyclobenzaprine HCl (Flexeril -) 10 mg PO HS PRN PRN Reason: MUSCLE SPASMS Famotidine (Pepcid -) 20 mg PO HS [facility] Last Admin: 09/25/19 22:59 Dose: 20 mg Folic Acid (Folic Acid -) 1 mg PO DAILY [facility] Gabapentin (Neurontin -) 300 mg PO DAILY [facility] Heparin Sodium (Porcine) (Heparin -) 5,000 unit SQ TID [facility] Last Admin: 09/26/19 05:30 Dose: 5,000 unit Sodium Chloride (Normal Saline -) 1,000 mls @ 83 mls/hr IV ASDIR [facility] Last Admin: 09/26/19 05:34 Dose: Not Given Metoclopramide HCl (Reglan Injection -) 5 mg IVPB Q8H-IV [facility] Last Admin: 09/26/19 01:17 Dose: 5 mg Mirtazapine (Remeron -) 7.5 mg PO HS [facility] Last Admin: 09/25/19 22:57 Dose: 7.5 mg Montelukast Sodium (Singulair -) 10 mg PO HS [facility] Last Admin: 09/25/19 22:59 Dose: 10 mg Pantoprazole Sodium (Protonix -) 40 mg PO BID [facility] Prednisone (Deltasone -) 5 mg PO DAILY [facility] Sulfasalazine (Azulfidine -) 1,000 mg PO BID [facility] Last Admin: 09/25/19 22:57 Dose: 1,000 mg - Objective Vital Signs: Vital Signs Temperature 97.9 F 09/25/19 22:00 Pulse Rate 66 09/25/19 22:00 Respiratory Rate 24 H 09/25/19 22:00 Blood Pressure 100/54 L 09/25/19 22:00 O2 Sat by Pulse Oximetry (%) 100 09/25/19 09:00 Constitutional: Yes: No Distress, Calm Eyes: Yes: Conjunctiva Clear HENT: Yes: Atraumatic Cardiovascular: Yes: Regular Rate and Rhythm Respiratory: Yes: Regular, Rhonchi Gastrointestinal: Yes: Normal Bowel Sounds, Soft, Tenderness, Epigastrium Neurological: Yes: Alert Psychiatric: Yes: Alert Labs: CBC, BMP 09/25/19 07:47 09/25/19 07:47 <Tori Montgomery - Last Filed: 09/26/19 08:29> - Current Medication List Current Medications: Active Medications Acetaminophen (Tylenol -) 650 mg PO Q4H PRN PRN Reason: HEADACHE Last Admin: 09/26/19 16:56 Dose: 650 mg Budesonide/Formoterol Fumarate (Symbicort 160/4.5mcg -) 2 puff IH BID [facility] Last Admin: 09/26/19 21:39 Dose: 2 puff Calcium Carbonate (Os-Davis 500mg -) 500 mg PO DAILY [facility] Last Admin: 09/26/19 10:36 Dose: 500 mg Cyclobenzaprine HCl (Flexeril -) 10 mg PO HS PRN PRN Reason: MUSCLE SPASMS Last Admin: 09/26/19 21:45 Dose: 10 mg Famotidine (Pepcid -) 20 mg PO HS [facility] Last Admin: 09/26/19 21:34 Dose: 20 mg Folic Acid (Folic Acid -) 1 mg PO DAILY [facility] Last Admin: 09/26/19 10:36 Dose: 1 mg Gabapentin (Neurontin -) 300 mg PO DAILY [facility] Last Admin: 09/26/19 10:36 Dose: 300 mg Sodium Chloride (Normal Saline -) 1,000 mls @ 83 mls/hr IV ASDIR [facility] Last Admin: 09/26/19 05:34 Dose: Not Given Metoclopramide HCl (Reglan Injection -) 5 mg IVPB Q8H-IV [facility] Last Admin: 09/27/19 02:38 Dose: 5 mg Mirtazapine (Remeron -) 7.5 mg PO HS [facility] Last Admin: 09/26/19 21:34 Dose: 7.5 mg Montelukast Sodium (Singulair -) 10 mg PO HS [facility] Last Admin: 09/26/19 21:35 Dose: 10 mg Non-Formulary Medication (Abatacept [Orencia Clickject]) 125 mg SQ WEEKLY [facility] Pantoprazole Sodium (Protonix Iv) 40 mg IVPUSH BID [facility] Last Admin: 09/26/19 21:38 Dose: 40 mg Prednisone (Deltasone -) 5 mg PO DAILY [facility] Last Admin: 09/26/19 10:36 Dose: 5 mg Sulfasalazine (Azulfidine -) 1,000 mg PO BID [facility] Last Admin: 09/26/19 21:37 Dose: 1,000 mg - Objective Vital Signs: Vital Signs Temperature 98 F 09/27/19 06:35 Pulse Rate 101 H 09/27/19 06:35 Respiratory Rate 20 09/27/19 06:35 Blood Pressure 120/60 09/27/19 06:35 O2 Sat by Pulse Oximetry (%) 98 09/26/19 21:00 Labs: CBC, BMP 09/27/19 07:35 INR, PTT INR 1.11 (0.83-1.09) H 09/27/19 07:35 <Janusz Nugent - Last Filed: 09/27/19 08:32> Problem List - Problems (1) Abdominal pain Assessment/Plan: >Pantoprazole BID >Patient is poor candidate for EGD due to ILD, will order Barium Esophogram >Clear liquid diet >cont Reglan and Zotrinidad Code(s): R10.9 - UNSPECIFIED ABDOMINAL PAIN Qualifiers: Abdominal location: epigastric Qualified Code(s): R10.13 - Epigastric pain <Tori Montgomery - Last Filed: 09/26/19 08:29> - Problems (1) Abdominal pain Code(s): R10.9 - UNSPECIFIED ABDOMINAL PAIN Qualifiers: Abdominal location: epigastric Qualified Code(s): R10.13 - Epigastric pain (2) Calculus of gallbladder without cholecystitis without obstruction Code(s): K80.20 - CALCULUS OF GALLBLADDER W/O CHOLECYSTITIS W/O OBSTRUCTION <Janusz Nugent - Last Filed: 09/27/19 08:32>
[2019-09-26] MEDS ORDERED: ABATACEPT 125 MG SQ SCH (08:30)
[2019-09-26 08:36] LABS: HEMATOCRIT 30.6 % (32.4-45.2); HEMOGLOBIN 10.2 GM/dL (10.7-15.3); MCH 30.7 pg (25.7-33.7); MCHC 33.4 g/dl (32.0-36.0); MEAN CELL VOLUME 91.9 fl (80-96); MEAN PLT VOLUME 7.7 fl (7.5-11.1); PLATELET COUNT 314 K/MM3 (134-434); RBC 3.33 M/mm3 (3.60-5.2); WHITE BLOOD COUNT 7.7 K/mm3 (4.0-10.0)
[2019-09-26 09:05] LABS: BLOOD UREA NITROGEN 3.2 mg/dL (7-18); CALCIUM 7.5 mg/dL (8.5-10.1); CREATININE 0.2 mg/dL (0.55-1.3); MAGNESIUM 1.9 mg/dL (1.8-2.4); POTASSIUM 3.6 mmol/L (3.5-5.1)
[2019-09-26] MEDS ORDERED: PANTOPRAZOLE 40 MG TABLET PO SCH ×3 (10:00)
[2019-09-26] MEDS ORDERED: FOLIC ACID 1 MG TABLET (FP) PO SCH (10:00)
[2019-09-26] MEDS ORDERED: MONTELUKAST NA 10 MG TABLET PO SCH (10:00)
[2019-09-26] MEDS ORDERED: predniSONE 5 MG TABLET (UD) PO SCH ×2 (10:00)
[2019-09-26] MEDS ORDERED: CALCIUM (OYSTER SHELL) 500 MG TABLET (FP) PO SCH (10:00)
[2019-09-26] MEDS ORDERED: GABAPENTIN 300 MG CAPSULE PO SCH (10:00)
[2019-09-26] MEDS ORDERED: PT OWN MED DRAWER 7, Y5N ONE (10:34)
[2019-09-26] MEDS: PANTOPRAZOLE SODIUM 40 MG VIAL IVPUSH SCH ×2 (10:36→21:38)
[2019-09-26] MEDS: sulfaSALAzine 500 MG TABLET PO SCH ×2 (10:36→21:37)
[2019-09-26] MEDS: BUDESONIDE/FORMETEROL FUMARATE 160/4.5 mcg INHALER IH SCH ×2 (10:37→21:39)
--- NOTE | 2019-09-26 11:54 | EKG ---
Test Reason : Blood Pressure : / mmHG Vent. Rate : 102 BPM Atrial Rate : 102 BPM P-R Int : 144 ms QRS Dur : 088 ms QT Int : 370 ms P-R-T Axes : 018 -42 -03 degrees QTc Int : 482 ms SINUS TACHYCARDIA WITH OCCASIONAL PREMATURE VENTRICULAR COMPLEXES LEFT AXIS DEVIATION MODERATE VOLTAGE CRITERIA FOR LVH, MAY BE NORMAL VARIANT NONSPECIFIC T WAVE ABNORMALITY ABNORMAL ECG WHEN COMPARED WITH ECG OF 24-SEP-2019 13:47, PREMATURE VENTRICULAR COMPLEXES ARE NOW PRESENT PREMATURE SUPRAVENTRICULAR COMPLEXES ARE NO LONGER PRESENT NONSPECIFIC T WAVE ABNORMALITY, WORSE IN ANTEROLATERAL LEADS Confirmed by CHANDLER EDUARDO MD ([id number]) on 09/26/2019 11:53:52 AM Referred By: LARRY MIRANDA DR Confirmed By:CHANDLER EDUARDO MD
--- NOTE | 2019-09-26 12:32 | PN ---
Teaching Attending Note Name of Resident: Jovani Mistry ATTENDING PHYSICIAN STATEMENT I saw and evaluated the patient. I reviewed the resident's note and discussed the case with the resident. I agree with the resident's findings and plan as documented. SUBJECTIVE: Reports improvement in abdominal pain/nausea/vomiting. No fever/ chills. No diarrhea/melena/hematochezia. OBJECTIVE: Afebrile, hemodynamically stable. Last Vital Signs Temp Pulse Resp BP Pulse Ox 98.0 F 103 H 20 130/78 100 09/26/19 10:00 09/26/19 10:00 09/26/19 10:00 09/26/19 10:00 09/25/19 09:00 Heart - S1, S2, soft SM Lungs - clear to auscultations. Abdomen - Soft, mild epigastric tenderness. Bowel Sounds normal. Extremities - no edema, no calf tenderness. RA deformities bilateral hands. Neuro - AAO x 3. Tone/Power normal all extremities. Laboratory Results - last 24 hr 09/26/19 09/26/19 07:50 07:50 WBC 7.7 RBC 3.33 L Hgb 10.2 L Hct 30.6 L MCV 91.9 MCH 30.7 MCHC 33.4 RDW 14.0 Plt Count 314 MPV 7.7 Sodium 130 L Potassium 3.6 Chloride 91 L Carbon Dioxide 34 H Anion Gap 5 L BUN 3.2 L Creatinine 0.2 L Est GFR (CKD-EPI)AfAm 145.24 Est GFR (CKD-EPI)NonAf 125.32 Random Glucose 84 Calcium 7.5 L Magnesium 1.9 Current Medications Generic Name Dose Route Start Last Admin Trade Name Freq PRN Reason Stop Dose Admin Acetaminophen 650 mg 09/25/19 01:22 09/26/19 03:59 Tylenol - PO 650 mg Q4H PRN Administration HEADACHE Budesonide/Formoterol Fumarate 2 puff 09/25/19 22:00 09/26/19 10:37 Symbicort 160/4.5mcg - IH 2 puff BID JOSE Administration Calcium Carbonate 500 mg 09/26/19 10:00 09/26/19 10:36 Os-Davis 500mg - PO 500 mg DAILY JOSE Administration Cyclobenzaprine HCl 10 mg 09/25/19 22:00 Flexeril - PO HS PRN MUSCLE SPASMS Famotidine 20 mg 09/25/19 22:00 09/25/19 22:59 Pepcid - PO 20 mg HS JOSE Administration Folic Acid 1 mg 09/26/19 10:00 09/26/19 10:36 Folic Acid - PO 1 mg DAILY JOSE Administration Gabapentin 300 mg 09/26/19 10:00 09/26/19 10:36 Neurontin - PO 300 mg DAILY JOSE Administration Heparin Sodium (Porcine) 5,000 unit 09/25/19 06:00 09/26/19 05:30 Heparin - SQ 5,000 unit TID JOSE Administration Sodium Chloride 1,000 mls @ 83 mls/hr 09/25/19 01:27 09/26/19 05:34 Normal Saline - IV Not Given ASDIR JOSE Metoclopramide HCl 5 mg 09/26/19 02:00 09/26/19 10:41 Reglan Injection - IVPB 5 mg Q8H-IV JOSE Administration Mirtazapine 7.5 mg 09/25/19 22:00 09/25/19 22:57 Remeron - PO 7.5 mg HS JOSE Administration Montelukast Sodium 10 mg 09/25/19 22:00 09/25/19 22:59 Singulair - PO 10 mg HS JOSE Administration Non-Formulary Medication 125 mg 09/26/19 08:30 Abatacept [Orencia Clickject] SQ WEEKLY JOSE Pantoprazole Sodium 40 mg 09/26/19 10:00 09/26/19 10:36 Protonix Iv IVPUSH 40 mg BID JOSE Administration Prednisone 5 mg 09/26/19 10:00 09/26/19 10:36 Deltasone - PO 5 mg DAILY JOSE Administration Sulfasalazine 1,000 mg 09/25/19 22:00 09/26/19 10:36 Azulfidine - PO 1,000 mg BID JOSE Administration Home Medications Medication Instructions Recorded Calcium Carbonate [Calcium] 600 mg PO DAILY 03/30/18 Folic Acid 1 mg PO DAILY 03/30/18 Mirtazapine [Remeron -] 7.5 mg PO HS 03/30/18 Prednisone 5 mg PO DAILY 03/30/18 Abatacept [Orencia Clickject] 125 mg SQ WEEKLY 02/27/19 Cyclobenzaprine HCl 10 mg PO PRN 02/27/19 Gabapentin 300 mg PO DAILY 02/27/19 Montelukast Sodium [Singulair] 10 mg PO HS 02/27/19 Ranitidine [Zantac -] 150 mg PO HS 02/27/19 Sulfasalazine 1,000 mg PO BID 09/24/19 Budesonide/Formeterol Fumarate 2 puff IH PRN 09/25/19 [SYMBICORT 160/4.5mcg -] Cholecalciferol (Vitamin D3) 50,000 units PO WEEKLY 09/25/19 [Vitamin D -] Montelukast Na [Singulair -] 10 mg PO DAILY 09/25/19 Mv-Mn/Iron/Folic Acid/Herb 190 09/25/19 [Vitamin D3 Complete Caplet] Pantoprazole Sodium [Protonix -] 40 mg PO DAILY 09/25/19 predniSONE [Deltasone -] 5 mg PO DAILY 09/25/19 ASSESSMENT AND PLAN: 79 year old female with a history of HTN, HLD, Hx partial SBO, Breast CA s/p CTx s/p Mastectomy, Interstitial lung disease presents with 4 day history of abdominal pain, nausea, and vomiting. No hematemesis. No diarrhea/melena/ hematochezia. No fever/chills. CT Abdomen/Pelvis - no obvious interval change in comparison to prior CT from . Partially imaged lower chest demonstrated evidence of extensive chronic interstitial changes. Chest X-ray showed no acute change since prior study, chronic interstitial nodular lung changes 1. Hponatremic, Hyperchloremic Metabolic alkalosis secondary to Intractable vomiting. Electrolyte abnormalities resolving with IV hydration Vomited again after a trial of soft diet. Barium Swallow shows stricture distal thoracic esophagus and GEJ Currently on clears/IV fluids. PPI BID and Reglan q8h recommended by GI Will need to discuss with GI plans for further Ix/intervention. 2. RA - on Sulfasalazine, Abatacept and Prednisone 3. Chronic Respiratory Failure sec to Interstitial Lung Disease (on 2L O2 via NC ) - Stable, no evidence of exacerbation. Synbicort, Prendisone chronically. 4. Normocytic Anemia, likely due to Chronic disease/RA treatment - will send Anemia work-up. DVT Px - Heparin SQ
--- NOTE | 2019-09-26 14:59 | PN ---
Physical Exam: SUBJECTIVE: Patient seen and examined at the bedside. Patient stated that she continues to have mild epigastric pain and has difficulty tolerating solid foods. Noted that she can swallow liquids. She denied any cp, sob, constipation , diarrhea, fevers, chills, headaches, dizziness, lightheadedness. OBJECTIVE: Vital Signs Period Temp Pulse Resp BP Sys/Duffy Pulse Ox Last 24 Hr 97.9 F-98.7 F 66-104 20-24 100-130/53-78 98 GENERAL: The patient is awake, alert, and fully oriented, in no acute distress. Sinhala speaking. HEAD: Normal with no signs of trauma. EYES: PERRL, extraocular movements intact, sclera anicteric, conjunctiva clear. ENT: Oropharynx clear without exudates, moist mucous membranes. NECK: Trachea midline, full range of motion, supple. LUNGS: Breath sounds equal, clear to auscultation bilaterally, no wheezes, no crackles, no accessory muscle use. HEART: Regular rate and rhythm, S1, S2 without murmur, rub. ABDOMEN: Soft, tender in the epigastric region, nondistended, normoactive bowel sounds, no guarding, no rebound, no masses. EXTREMITIES: 2+ pulses, warm, well-perfused, no edema. Chronic RA changes in joints. NEUROLOGICAL: Cranial nerves II through XII grossly intact. 5/5 muscle strength upper and lower extremities, bilaterally. PSYCH: Normal mood, normal affect. SKIN: Warm, dry, normal turgor, no rashes or lesions noted. Laboratory Results - last 24 hr 09/26/19 09/26/19 07:50 07:50 WBC 7.7 RBC 3.33 L Hgb 10.2 L Hct 30.6 L MCV 91.9 MCH 30.7 MCHC 33.4 RDW 14.0 Plt Count 314 MPV 7.7 Sodium 130 L Potassium 3.6 Chloride 91 L Carbon Dioxide 34 H Anion Gap 5 L BUN 3.2 L Creatinine 0.2 L Est GFR (CKD-EPI)AfAm 145.24 Est GFR (CKD-EPI)NonAf 125.32 Random Glucose 84 Calcium 7.5 L Magnesium 1.9 Active Medications Generic Name Dose Route Start Last Admin Trade Name Freq PRN Reason Stop Dose Admin Acetaminophen 650 mg 09/25/19 01:22 09/26/19 03:59 Tylenol - PO 650 mg Q4H PRN Administration HEADACHE Budesonide/Formoterol Fumarate 2 puff 09/25/19 22:00 09/26/19 10:37 Symbicort 160/4.5mcg - IH 2 puff BID JOSE Administration Calcium Carbonate 500 mg 09/26/19 10:00 09/26/19 10:36 Os-Davis 500mg - PO 500 mg DAILY JOSE Administration Cyclobenzaprine HCl 10 mg 09/25/19 22:00 Flexeril - PO HS PRN MUSCLE SPASMS Famotidine 20 mg 09/25/19 22:00 09/25/19 22:59 Pepcid - PO 20 mg HS JOSE Administration Folic Acid 1 mg 09/26/19 10:00 09/26/19 10:36 Folic Acid - PO 1 mg DAILY JOSE Administration Gabapentin 300 mg 09/26/19 10:00 09/26/19 10:36 Neurontin - PO 300 mg DAILY JOSE Administration Heparin Sodium (Porcine) 5,000 unit 09/25/19 06:00 09/26/19 14:21 Heparin - SQ 5,000 unit TID JOSE Administration Sodium Chloride 1,000 mls @ 83 mls/hr 09/25/19 01:27 09/26/19 05:34 Normal Saline - IV Not Given ASDIR JOSE Metoclopramide HCl 5 mg 09/26/19 02:00 09/26/19 10:41 Reglan Injection - IVPB 5 mg Q8H-IV JOSE Administration Mirtazapine 7.5 mg 09/25/19 22:00 09/25/19 22:57 Remeron - PO 7.5 mg HS JOSE Administration Montelukast Sodium 10 mg 09/25/19 22:00 09/25/19 22:59 Singulair - PO 10 mg HS JOSE Administration Non-Formulary Medication 125 mg 09/26/19 08:30 Abatacept [Orencia Clickject] SQ WEEKLY JOSE Pantoprazole Sodium 40 mg 09/26/19 10:00 09/26/19 10:36 Protonix Iv IVPUSH 40 mg BID JOSE Administration Prednisone 5 mg 09/26/19 10:00 09/26/19 10:36 Deltasone - PO 5 mg DAILY JOSE Administration Sulfasalazine 1,000 mg 09/25/19 22:00 09/26/19 10:36 Azulfidine - PO 1,000 mg BID JOSE Administration ASSESSMENT/PLAN: Sweta Bhatia is a 79 year old female with a history of HTN, partial SBO, Breast Cancer treated with chemotherapy and mastectomy, ILD (on 2 L Home oxygen), RA, osteoporosis, and depression admitted for intractable nausea/vomiting. Intractable nausea/vomiting likely due to biologics for RA epigastric discomfort vs PUD (on steroids and occasional use of her protonix ) vs Acute gastroenteritis - Abd CT with no acute pathology - Reglan 5mg q8h. QTC boderline prolongued at 482 on repeat EKG. - NS@ 83 cc/hr for hydration - protonix 40 mg IV daily - famotidine 20mg daily - barium esophogram showing stricture in the distal esophagus at GE junction, unable to swallow 1.3cm barium pill, normal flow of contrast into stomach, no evidence of gastric outlet obstruction - currently on clear liquid diet and is maximum patient has thus far tolerated - gastroenterology consulted, recs appreciated - patient is a poor EGD candidate due to hx of ILD Hyponatremia and hypochloremia - according to pt sodium usually in the 129-130, currently 130 - no current neurologic symptoms - No longer on salt tablets as per her picker/puller - cont NS@ 83 to improve NaCl level - serum osms decrease, true hyponatremia - urine electrolytes, urine osms ordered RA - cont home sulfasalizine, Abatacept, prednisone HTN - resume home meds ILD - continue prednisone 5mg - Singular, symbicort, albuterol - 2L NC Depression - cont home meds Osteoporosis - cont calcium and vit D Prophylaxis - heparin 5000 units sq tid FEN - NS at 83cc/hr - continue to monitor electrolytes and replete as necessary - advance diet as tolerated, clear liquid diet Dispo - continue to monitor on Med-surg - patient has outpatient physical therapy twice a week T/Th Visit type - Emergency Visit Emergency Visit: Yes ED Registration Date: 09/24/19 Care time: The patient presented to the Emergency Department on the above date and was hospitalized for further evaluation of their emergent condition. - New Patient This patient is new to me today: No - Critical Care Critical Care patient: No
[2019-09-26] MEDS: MIRTAZAPINE 15 MG TABLET (FP) PO SCH (21:34)
[2019-09-26] MEDS: CYCLOBENZAPRINE HCL 10 MG TABLET (FP) PO PRN ×2 (21:34→21:45)
[2019-09-26] MEDS: FAMOTIDINE 20 MG TABLET PO SCH (21:34)
[2019-09-26] MEDS: MONTELUKAST NA 10 MG TABLET PO SCH (21:35)
[2019-09-27 01:49] LABS: URINE UREA NITROGEN 133 mg/dL (350-1000)
[2019-09-27] MEDS: METOCLOPRAMIDE HCL INJECTION 10 MG/2 ML VIAL IVPB SCH ×3 (02:38→17:08)
[2019-09-27 08:15] LABS: HEMATOCRIT 32.3 % (32.4-45.2); HEMOGLOBIN 10.9 GM/dL (10.7-15.3); MCH 30.6 pg (25.7-33.7); MCHC 33.6 g/dl (32.0-36.0); MEAN PLT VOLUME 7.7 fl (7.5-11.1); PLATELET COUNT 318 K/MM3 (134-434); RBC 3.55 M/mm3 (3.60-5.2); WHITE BLOOD COUNT 5.5 K/mm3 (4.0-10.0)
[2019-09-27 08:27] LABS: INR 1.11 (0.83-1.09); PROTHROMBIN TIME (PATIENT) 13.1 SEC (9.7-13.0)
[2019-09-27 08:29] LABS: ACTIVATED PTT 31.7 SECONDS (25.2-36.5)
[2019-09-27 09:05] LABS: CALCIUM 7.6 mg/dL (8.5-10.1); CREATININE 0.3 mg/dL (0.55-1.3); MAGNESIUM 2.1 mg/dL (1.8-2.4); POTASSIUM 3.6 mmol/L (3.5-5.1)
[2019-09-27 09:15] LABS: BLOOD UREA NITROGEN 1.4 mg/dL (7-18)
[2019-09-27] MEDS ORDERED: ABATACEPT 125 MG SQ SCH (09:25)
[2019-09-27] MEDS ORDERED: CYCLOBENZAPRINE HCL 10 MG TABLET (FP) PO PRN (09:25)
[2019-09-27] MEDS: SODIUM CHLORIDE 1,000 ML IV SCH (09:59)
[2019-09-27] MEDS ORDERED: PANTOPRAZOLE SODIUM 40 MG VIAL IVPUSH SCH (10:00)
[2019-09-27] MEDS: CALCIUM (OYSTER SHELL) 500 MG TABLET (FP) PO SCH (10:04)
[2019-09-27] MEDS: FOLIC ACID 1 MG TABLET (FP) PO SCH (10:04)
[2019-09-27] MEDS: GABAPENTIN 300 MG CAPSULE PO SCH (10:07)
[2019-09-27] MEDS ORDERED: PT OWN MED DRAWER 7, Y5N ONE (10:22)
[2019-09-27] MEDS: predniSONE 5 MG TABLET (UD) PO SCH (10:35)
[2019-09-27] MEDS: sulfaSALAzine 500 MG TABLET PO SCH ×2 (10:35→21:02)
[2019-09-27] MEDS: BUDESONIDE/FORMETEROL FUMARATE 160/4.5 mcg INHALER IH SCH ×2 (10:35→21:07)
--- NOTE | 2019-09-27 13:30 | PN ---
Teaching Attending Note Name of Resident: Jovani Mistry ATTENDING PHYSICIAN STATEMENT I saw and evaluated the patient. I reviewed the resident's note and discussed the case with the resident. I agree with the resident's findings and plan as documented. SUBJECTIVE: Reports improvement in abdominal pain/nausea/vomiting. s/p EGD this AM. No fever/chills. No diarrhea/melena/hematochezia. OBJECTIVE: Afebrile, hemodynamically stable. Last Vital Signs Temp Pulse Resp BP Pulse Ox 98.1 F 94 H 18 118/61 97 09/27/19 11:04 09/27/19 11:04 09/27/19 11:04 09/27/19 11:04 09/27/19 10:00 Heart - S1, S2, soft SM Lungs - clear to auscultations. Abdomen - Soft, mild epigastric tenderness. Bowel Sounds normal. Extremities - no edema, no calf tenderness. RA deformities bilateral hands. Neuro - AAO x 3. Tone/Power normal all extremities. Laboratory Results - last 24 hr 09/27/19 09/27/19 09/27/19 00:00 00:00 07:35 WBC 5.5 RBC 3.55 L Hgb 10.9 Hct 32.3 L MCV 91.0 MCH 30.6 MCHC 33.6 RDW 14.0 Plt Count 318 MPV 7.7 PT with INR INR PTT (Actin FS) Sodium Potassium Chloride Carbon Dioxide Anion Gap BUN Creatinine Est GFR (CKD-EPI)AfAm Est GFR (CKD-EPI)NonAf Random Glucose Calcium Magnesium Iron TIBC Iron Saturation Unsaturated IBC Vitamin B12 Serum Folate Urine Osmolality 146 L Ur Random Sodium 17 L Ur Random Urea Nitrogn 133 L 09/27/19 09/27/19 07:35 07:35 WBC RBC Hgb Hct MCV MCH MCHC RDW Plt Count MPV PT with INR 13.10 H INR 1.11 H PTT (Actin FS) 31.7 Sodium 133 L Potassium 3.6 Chloride 93 L Carbon Dioxide 36 H Anion Gap 4 L BUN 1.4 L* Creatinine 0.3 L Est GFR (CKD-EPI)AfAm 127.10 Est GFR (CKD-EPI)NonAf 109.67 Random Glucose 99 Calcium 7.6 L Magnesium 2.1 Iron 53 TIBC 277 Iron Saturation 19 Unsaturated IBC 224 Vitamin B12 788 Serum Folate 22 H Urine Osmolality Ur Random Sodium Ur Random Urea Nitrogn Current Medications Generic Name Dose Route Start Last Admin Trade Name Freq PRN Reason Stop Dose Admin Acetaminophen 650 mg 09/27/19 09:25 Tylenol - PO Q4H PRN HEADACHE Budesonide/Formoterol Fumarate 2 puff 09/27/19 10:00 09/27/19 10:35 Symbicort 160/4.5mcg - IH 2 puff BID JOSE Administration Calcium Carbonate 500 mg 09/27/19 10:00 09/27/19 10:04 Os-Davis 500mg - PO 500 mg DAILY JOSE Administration Cyclobenzaprine HCl 10 mg 09/27/19 09:25 Flexeril - PO HS PRN MUSCLE SPASMS Famotidine 20 mg 09/27/19 22:00 Pepcid - PO HS JOSE Folic Acid 1 mg 09/27/19 10:00 09/27/19 10:04 Folic Acid - PO 1 mg DAILY JOSE Administration Gabapentin 300 mg 09/27/19 10:00 09/27/19 10:07 Neurontin - PO 300 mg DAILY JOSE Administration Sodium Chloride 1,000 mls @ 83 mls/hr 09/27/19 09:25 09/27/19 09:59 Normal Saline - IV 83 mls/hr ASDIR JOSE Administration Metoclopramide HCl 5 mg 09/27/19 10:00 09/27/19 10:35 Reglan Injection - IVPB 5 mg Q8H-IV JOSE Administration Mirtazapine 7.5 mg 09/27/19 22:00 Remeron - PO HS JOSE Montelukast Sodium 10 mg 09/27/19 22:00 Singulair - PO HS JOSE Non-Formulary Medication 125 mg 09/27/19 09:25 Abatacept [Orencia Clickject] SQ WEEKLY JOSE Pantoprazole Sodium 40 mg 09/27/19 10:00 09/27/19 10:04 Protonix Iv IVPUSH 40 mg BID JOSE Administration Prednisone 5 mg 09/27/19 10:00 09/27/19 10:35 Deltasone - PO 5 mg DAILY JOSE Administration Sulfasalazine 1,000 mg 09/27/19 10:00 09/27/19 10:35 Azulfidine - PO 1,000 mg BID JOSE Administration Home Medications Medication Instructions Recorded Calcium Carbonate [Calcium] 600 mg PO DAILY 03/30/18 Folic Acid 1 mg PO DAILY 03/30/18 Mirtazapine [Remeron -] 7.5 mg PO HS 03/30/18 Prednisone 5 mg PO DAILY 03/30/18 Abatacept [Orencia Clickject] 125 mg SQ WEEKLY 02/27/19 Cyclobenzaprine HCl 10 mg PO PRN 02/27/19 Gabapentin 300 mg PO DAILY 02/27/19 Montelukast Sodium [Singulair] 10 mg PO HS 02/27/19 Ranitidine [Zantac -] 150 mg PO HS 02/27/19 Sulfasalazine 1,000 mg PO BID 09/24/19 Budesonide/Formeterol Fumarate 2 puff IH PRN 09/25/19 [SYMBICORT 160/4.5mcg -] Cholecalciferol (Vitamin D3) 50,000 units PO WEEKLY 09/25/19 [Vitamin D -] Montelukast Na [Singulair -] 10 mg PO DAILY 09/25/19 Mv-Mn/Iron/Folic Acid/Herb 190 09/25/19 [Vitamin D3 Complete Caplet] Pantoprazole Sodium [Protonix -] 40 mg PO DAILY 09/25/19 predniSONE [Deltasone -] 5 mg PO DAILY 09/25/19 ASSESSMENT AND PLAN: 79 year old female with a history of HTN, HLD, Hx partial SBO, Breast CA s/p CTx s/p Mastectomy, Interstitial lung disease presents with 4 day history of abdominal pain, nausea, and vomiting. No hematemesis. No diarrhea/melena/ hematochezia. No fever/chills. CT Abdomen/Pelvis - no obvious interval change in comparison to prior CT from . Partially imaged lower chest demonstrated evidence of extensive chronic interstitial changes. Chest X-ray showed no acute change since prior study, chronic interstitial nodular lung changes 1. Hyponatremic, Hyperchloremic Metabolic alkalosis due to Intractable vomiting sec to esophageal strictures. 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 Slow advancement of diet. Protonix and Reglan q8h recommended by GI 2. RA - on Sulfasalazine, Abatacept and Prednisone 3. Chronic Respiratory Failure sec to Interstitial Lung Disease (on 2L O2 via NC ) - Stable, no evidence of exacerbation. Synbicort, Prendisone chronically. Pulmonary was consulted 09/26 for optimization prior to EGD. 4. Normocytic Anemia, likely due to Chronic disease/RA treatment - Iron/Iron Sat /B12 within normal limits. DVT Px - Heparin SQ If tolerates oral intake, can be discharged home with GI out-patient follow up. Will need to stay on soft diet, with advancement as per GI as out-patient.
--- NOTE | 2019-09-27 15:24 | PN ---
Physical Exam: SUBJECTIVE: Patient seen and examined at the bedside. Patient stated that she continued to have some difficulty swallowing whole foods and endorsed some epigastric pain. At the times of interview, that patient did not endorse any nausea or vomiting episodes. Dr. Nugent at the bedside spoke with patient and daughter over the phone and all agreed for EGD to be performed. Patient was taken to endoscopy suite for EGD. Patient denied cp, sob, n/v/c/d, fever, chills, headaches, dizziness, lightheadedness, numbness, tingling. OBJECTIVE: Vital Signs Period Temp Pulse Resp BP Sys/Duffy Pulse Ox Last 24 Hr 97.5 F-98.5 F 86-103 15-22 100-128/45-76 96-99 GENERAL: The patient is awake, alert, and fully oriented, in no acute distress. Kenyan speaking. HEAD: Normal with no signs of trauma. EYES: PERRL, extraocular movements intact, sclera anicteric, conjunctiva clear. ENT: Oropharynx clear without exudates, moist mucous membranes. NECK: Trachea midline, full range of motion, supple. LUNGS: Breath sounds equal, noted coarse breath sounds throughout. No wheezes or accessory muscle use. HEART: Regular rate and rhythm, S1, S2 without murmur, rub. ABDOMEN: Soft, tender in the epigastric region, nondistended, normoactive bowel sounds, no guarding, no rebound, no masses. EXTREMITIES: 2+ pulses, warm, well-perfused, no edema. Chronic RA changes in joints. NEUROLOGICAL: Cranial nerves II through XII grossly intact. 5/5 muscle strength upper and lower extremities, bilaterally. PSYCH: Normal mood, normal affect. SKIN: Warm, dry, normal turgor, no rashes or lesions noted. Laboratory Results - last 24 hr 09/27/19 09/27/19 09/27/19 00:00 00:00 07:35 WBC 5.5 RBC 3.55 L Hgb 10.9 Hct 32.3 L MCV 91.0 MCH 30.6 MCHC 33.6 RDW 14.0 Plt Count 318 MPV 7.7 PT with INR INR PTT (Actin FS) Sodium Potassium Chloride Carbon Dioxide Anion Gap BUN Creatinine Est GFR (CKD-EPI)AfAm Est GFR (CKD-EPI)NonAf Random Glucose Calcium Magnesium Iron TIBC Iron Saturation Unsaturated IBC Vitamin B12 Serum Folate Urine Osmolality 146 L Ur Random Sodium 17 L Ur Random Urea Nitrogn 133 L 09/27/19 09/27/19 07:35 07:35 WBC RBC Hgb Hct MCV MCH MCHC RDW Plt Count MPV PT with INR 13.10 H INR 1.11 H PTT (Actin FS) 31.7 Sodium 133 L Potassium 3.6 Chloride 93 L Carbon Dioxide 36 H Anion Gap 4 L BUN 1.4 L* Creatinine 0.3 L Est GFR (CKD-EPI)AfAm 127.10 Est GFR (CKD-EPI)NonAf 109.67 Random Glucose 99 Calcium 7.6 L Magnesium 2.1 Iron 53 TIBC 277 Iron Saturation 19 Unsaturated IBC 224 Vitamin B12 788 Serum Folate 22 H Urine Osmolality Ur Random Sodium Ur Random Urea Nitrogn Active Medications Generic Name Dose Route Start Last Admin Trade Name Freq PRN Reason Stop Dose Admin Acetaminophen 650 mg 09/27/19 09:25 Tylenol - PO Q4H PRN HEADACHE Budesonide/Formoterol Fumarate 2 puff 09/27/19 10:00 09/27/19 10:35 Symbicort 160/4.5mcg - IH 2 puff BID JOSE Administration Calcium Carbonate 500 mg 09/27/19 10:00 09/27/19 10:04 Os-Davis 500mg - PO 500 mg DAILY JOSE Administration Cyclobenzaprine HCl 10 mg 09/27/19 09:25 Flexeril - PO HS PRN MUSCLE SPASMS Famotidine 20 mg 09/27/19 22:00 Pepcid - PO HS JOSE Folic Acid 1 mg 09/27/19 10:00 09/27/19 10:04 Folic Acid - PO 1 mg DAILY JOSE Administration Gabapentin 300 mg 09/27/19 10:00 09/27/19 10:07 Neurontin - PO 300 mg DAILY JOSE Administration Sodium Chloride 1,000 mls @ 83 mls/hr 09/27/19 09:25 09/27/19 09:59 Normal Saline - IV 83 mls/hr ASDIR JOSE Administration Metoclopramide HCl 5 mg 09/27/19 10:00 09/27/19 10:35 Reglan Injection - IVPB 5 mg Q8H-IV JOSE Administration Mirtazapine 7.5 mg 09/27/19 22:00 Remeron - PO HS JOSE Montelukast Sodium 10 mg 09/27/19 22:00 Singulair - PO HS JOSE Non-Formulary Medication 125 mg 09/27/19 09:25 Abatacept [Orencia Clickject] SQ WEEKLY JOSE Pantoprazole Sodium 40 mg 09/27/19 10:00 09/27/19 10:04 Protonix Iv IVPUSH 40 mg BID JOSE Administration Prednisone 5 mg 09/27/19 10:00 09/27/19 10:35 Deltasone - PO 5 mg DAILY JOSE Administration Sulfasalazine 1,000 mg 09/27/19 10:00 09/27/19 10:35 Azulfidine - PO 1,000 mg BID OJSE Administration ASSESSMENT/PLAN: Sweta Bhatia is a 79 year old female with a history of HTN, partial SBO, Breast Cancer treated with chemotherapy and mastectomy, ILD (on 2 L Home oxygen), RA, osteoporosis, and depression admitted for intractable nausea/vomiting. Intractable nausea/vomiting likely due to biologics for RA epigastric discomfort vs PUD (on steroids and occasional use of her protonix ) vs Acute gastroenteritis - Abd CT with no acute pathology - Reglan 5mg q8h. QTC boderline prolongued at 482 on repeat EKG. - NS@ 83 cc/hr for hydration - protonix 40 mg PO daily - famotidine 20mg daily - barium esophogram showing stricture in the distal esophagus at GE junction, unable to swallow 1.3cm barium pill, normal flow of contrast into stomach, no evidence of gastric outlet obstruction - currently on full liquid diet - gastroenterology consulted, recs appreciated - underwent EGD noting multiple esophageal rings r/o EOE, arophic gastritis, biopsies sent for pathology - patient to have trial of soft diet in the morning Hyponatremia and hypochloremia - according to pt sodium usually in the 129-130, currently 133 - no current neurologic symptoms - No longer on salt tablets as per her doctor of dental surgery - cont NS@ 83 to improve NaCl level - serum osms decrease, true hyponatremia - urine electrolytes urine osms noting low sodium and low osms, indicating likely dehydration from vomiting and poor intake RA - cont home sulfasalizine, Abatacept, prednisone HTN - resume home meds ILD - continue prednisone 5mg - Singular, symbicort, albuterol - 2L NC Depression - cont home meds Osteoporosis - cont calcium and vit D Prophylaxis - heparin 5000 units sq tid FEN - NS at 83cc/hr, can d/c when patient PO intake increases - continue to monitor electrolytes and replete as necessary - full liquid diet, advance as tolerated to soft diet in the mornin Dispo - continue to monitor on Med-surg - patient has outpatient physical therapy twice a week T/Th Visit type - Emergency Visit Emergency Visit: Yes ED Registration Date: 09/24/19 Care time: The patient presented to the Emergency Department on the above date and was hospitalized for further evaluation of their emergent condition. - New Patient This patient is new to me today: No - Critical Care Critical Care patient: No
[2019-09-27] MEDS ORDERED: LIDOCAINE 5% TOPICAL PATCH TP ONE ×2 (16:15→16:30)
[2019-09-27] MEDS: ACETAMINOPHEN 325 MG TABLET (FP) PO PRN (17:55)
[2019-09-27] MEDS: MONTELUKAST NA 10 MG TABLET PO SCH (21:03)
[2019-09-27] MEDS: FAMOTIDINE 20 MG TABLET PO SCH (21:03)
[2019-09-27] MEDS: MIRTAZAPINE 15 MG TABLET (FP) PO SCH (21:04)
[2019-09-28] MEDS: SODIUM CHLORIDE 1,000 ML IV SCH ×2 (01:00→15:05)
[2019-09-28] MEDS: METOCLOPRAMIDE HCL INJECTION 10 MG/2 ML VIAL IVPB SCH ×3 (01:15→17:35)
[2019-09-28] MEDS ORDERED: LIDOCAINE PATCH REMOVAL MC SCH (04:15)
[2019-09-28] MEDS ORDERED: PT OWN MED DRAWER 7, Y5N ONE (09:24)
[2019-09-28] MEDS: PANTOPRAZOLE 40 MG TABLET PO SCH (09:34)
[2019-09-28] MEDS: BUDESONIDE/FORMETEROL FUMARATE 160/4.5 mcg INHALER IH SCH ×2 (09:35→22:10)
[2019-09-28] MEDS: sulfaSALAzine 500 MG TABLET PO SCH ×2 (09:35→22:11)
[2019-09-28] MEDS: FOLIC ACID 1 MG TABLET (FP) PO SCH (09:35)
[2019-09-28] MEDS: CALCIUM (OYSTER SHELL) 500 MG TABLET (FP) PO SCH (09:35)
[2019-09-28] MEDS: GABAPENTIN 300 MG CAPSULE PO SCH (09:35)
[2019-09-28] MEDS: predniSONE 5 MG TABLET (UD) PO SCH (09:35)
--- NOTE | 2019-09-28 11:08 | DS ---
Physical Exam: SUBJECTIVE: Patient seen and examined this AM. Nausea has improved, tolerating Diet, Large BM Overnight. OBJECTIVE: Vital Signs Period Temp Pulse Resp BP Sys/Duffy Pulse Ox Last 24 Hr 97.9 F-98.1 F 97-106 15-18 114-133/58-88 98 PHYSICAL EXAM GENERAL: A&Ox3, NAD HEAD: NCAT EYES: PERRL, EOMI ENT: MMM NECK: Supple LUNGS: Coarse breath sounds throughout, no wheezes, no crackles HEART: Regular rate and rhythm, S1, S2 without murmur ABDOMEN: Soft, tender to palpation in the epigastrum, nondistended, + bowel sounds, no guarding EXTREMITIES: no edema. NEUROLOGICAL: Cranial nerves II through XII grossly intact. SKIN: Warm, dry LABS Laboratory Last Values WBC 5.5 K/mm3 (4.0-10.0) 09/27/19 07:35 RBC 3.55 M/mm3 (3.60-5.2) L 09/27/19 07:35 Hgb 10.9 GM/dL (10.7-15.3) 09/27/19 07:35 Hct 32.3 % (32.4-45.2) L 09/27/19 07:35 MCV 91.0 fl (80-96) 09/27/19 07:35 MCH 30.6 pg (25.7-33.7) 09/27/19 07:35 MCHC 33.6 g/dl (32.0-36.0) 09/27/19 07:35 RDW 14.0 % (11.6-15.6) 09/27/19 07:35 Plt Count 318 K/MM3 (134-434) 09/27/19 07:35 MPV 7.7 fl (7.5-11.1) 09/27/19 07:35 Absolute Neuts (auto) 3.4 K/mm3 (1.5-8.0) 09/25/19 07:47 Neutrophils % 70.6 % (42.8-82.8) D 09/25/19 07:47 Neutrophils % (Manual) 88.0 % (42.8-82.8) H 09/24/19 14:13 Band Neutrophils % 0.0 % 09/24/19 14:13 Lymphocytes % 16.2 % (8-40) D 09/25/19 07:47 Lymphocytes % (Manual) 6.0 % (8-40) L D 09/24/19 14:13 Monocytes % 11.1 % (3.8-10.2) H D 09/25/19 07:47 Monocytes % (Manual) 4 % (3.8-10.2) 09/24/19 14:13 Eosinophils % 1.3 % (0-4.5) D 09/25/19 07:47 Eosinophils % (Manual) 1.0 % (0-4.5) D 09/24/19 14:13 Basophils % 0.8 % (0-2.0) 09/25/19 07:47 Basophils % (Manual) 1.0 % (0-2.0) D 09/24/19 14:13 Myelocytes % (Man) 0 % (0-2) 09/24/19 14:13 Promyelocytes % (Man) 0 % (0-2) 09/24/19 14:13 Blast Cells % (Manual) 0 % (0-0) 09/24/19 14:13 Nucleated RBC % 0 % (0-0) 09/25/19 07:47 Metamyelocytes 0 % (0-2) D 09/24/19 14:13 Platelet Estimate Normal 09/24/19 14:13 PT with INR 13.10 SEC (9.7-13.0) H 09/27/19 07:35 INR 1.11 (0.83-1.09) H 09/27/19 07:35 PTT (Actin FS) 31.7 SECONDS (25.2-36.5) 09/27/19 07:35 Sodium 133 mmol/L (136-145) L 09/27/19 07:35 Potassium 3.6 mmol/L (3.5-5.1) 09/27/19 07:35 Chloride 93 mmol/L (98-107) L 09/27/19 07:35 Carbon Dioxide 36 mmol/L (21-32) H 09/27/19 07:35 Anion Gap 4 MMOL/L (8-16) L 09/27/19 07:35 BUN 1.4 mg/dL (7-18) L* 09/27/19 07:35 Creatinine 0.3 mg/dL (0.55-1.3) L 09/27/19 07:35 Est GFR (CKD-EPI)AfAm 127.10 09/27/19 07:35 Est GFR (CKD-EPI)NonAf 109.67 09/27/19 07:35 Random Glucose 99 mg/dL (74-106) 09/27/19 07:35 Serum Osmolality 269 mosm/kg (278-305) L 09/25/19 07:47 Uric Acid 2.5 mg/dL (2.6-7.2) L 09/25/19 07:47 Calcium 7.6 mg/dL (8.5-10.1) L 09/27/19 07:35 Phosphorus 3.0 mg/dL (2.5-4.9) 09/25/19 07:47 Magnesium 2.1 mg/dL (1.8-2.4) 09/27/19 07:35 Iron 53 ug/dL (50-175) 09/27/19 07:35 TIBC 277 ug/dL (250-450) 09/27/19 07:35 Iron Saturation 19 % (17.5-39) 09/27/19 07:35 Unsaturated IBC 224 ug/dL (200-275) 09/27/19 07:35 Total Bilirubin 0.3 mg/dL (0.2-1) 09/25/19 07:47 AST 26 U/L (15-37) 09/25/19 07:47 ALT 14 U/L (13-61) 09/25/19 07:47 Alkaline Phosphatase 74 U/L (45-117) 09/25/19 07:47 Creatine Kinase 131 U/L (26-192) 09/24/19 14:13 Troponin I < 0.02 ng/ml (0.00-0.05) 09/24/19 14:13 Total Protein 6.9 g/dl (6.4-8.2) 09/25/19 07:47 Albumin 2.7 g/dl (3.4-5.0) L 09/25/19 07:47 Lipase 39 U/L (73-393) L 09/24/19 14:13 Vitamin B12 788 pg/ml (193-986) 09/27/19 07:35 Serum Folate 22 ng/mL (3.1-17.5) H 09/27/19 07:35 Urine Color Yellow 12/17/19 20: Urine Appearance Clear 09/24/19 20: Urine pH 8.0 (5.0-8.0) 09/24/19 20: Ur Specific [place] 1.055 (1.010-1.035) H 09/24/19 20:17 Urine Protein Negative (NEGATIVE) 09/24/19 20:17 Urine Glucose (UA) Negative (NEGATIVE) 09/24/19 20: Urine Ketones 15 mg/dl (NEGATIVE) 09/24/19 20: Urine Blood Trace (NEGATIVE) 09/24/19 20: Urine Nitrite Negative (NEGATIVE) 09/24/19 20: Urine Bilirubin Negative (NEGATIVE) 09/24/19 20: Urine Urobilinogen 0.2 mg/dL (0.2-1.0) 09/24/19 20: Ur Leukocyte Esterase Negative (NEGATIVE) 09/24/19 20: Urine Osmolality 146 mosm/kg (300-900) L 09/27/19 00:00 Ur Random Sodium 17 MMOL/L (40-220) L 09/27/19 00:00 Ur Random Urea Nitrogn 133 mg/dL (350-1000) L 09/27/19 00:00 Microbiology 09/24/19 20: Urine - Urine Clean Catch Urine Culture - Final Contaminated: Please Repeat HOSPITAL COURSE: Date of Admission:09/24/19 Date of Discharge: 09/28/19 79 yo F with PMHx HTN, partial SBO, Breast Ca (s/p chemotherapy and mastectomy) , ILD (on 2L O2), RA, osteoporosis, and depression who presented with intractable nausea/vomiting and admitted for Hyponatremic, Hyperchloremic Metabolic alkalosis. 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 Subsequently an EGD was done which revealed multiple esophageal rings and atrophic gastritis. Patient was continued on her home dose PPI and started on Reglan. Her vomiting resolved and her diet was advanced slowly, which she was able to tolerate. Her electrolyte abnormalities resolving with IV hydration. Patient continue all of her home meds and remained at her baseline O2 status. Patient is medically stable for discharge on soft diet with GI outpatient follow up. Minutes to complete discharge: 36 Discharge Summary Problems reviewed: Yes Reason For Visit: HYPONATREMIA,PERSISTENT VOMITING,ABD PAIN Current Active Problems Hyponatremia (Chronic) Condition: Improved - Instructions Diet, Activity, Other Instructions: You were admitted due to nausea, vomiting and inability to eat. You were given medications to help with your nausea and pain in your stomach when you eat. You were seen by the gm video (stomach, liver, intestine doctor) and were recommended to have a test done that showed that you have a narrowing of your esophagus close to your stomach. You had an EGD (camera scope of the upper part of your gastrointestinal system) which showed abnormalities of your esophagus and stomach. The gm video recommended to continue taking medications for nausea and pain and to eat a soft diet and to follow up with the gm video outpatient. MEDICATIONS CONTINUE taking pantoprazole 40mg every day. Continue to take Reglan 15mg as needed up to three times a day. Continue to take all of your other home medications as prescribed. REFERRALS Please see your primary care doctor, Dr. Laverne Chow, within 1 week. Please see the gm video, Dr. Janusz Nugent, within 1 week. SPECIAL INSTRUCTIONS Start to eat a soft diet. Chew your food thoroughly and eat slowly making sure to swallow completely before taking the next bite. If you have any symptoms of chest pain, shortness of breath, worsening abdominal pain, worsening vomiting, blood or bile in the vomit, blood in your stools, fevers, or any other general feelings of unwellness, please call 911 or go to your nearest emergency room. Referrals: Janusz Nugent MD [Staff Physician] - 1 Week Laverne Chow MD [Primary Care Provider] - 1 Week Disposition: HOME - Home Medications Comprehensive Discharge Medication List: Ambulatory Orders Calcium Carbonate [Calcium] 600 mg PO DAILY 03/30/18 Folic Acid 1 mg PO DAILY 03/30/18 Mirtazapine [Remeron -] 7.5 mg PO HS 03/30/18 Prednisone 5 mg PO DAILY 03/30/18 Abatacept [Orencia Clickject] 125 mg SQ WEEKLY 02/27/19 Cyclobenzaprine HCl 10 mg PO PRN 02/27/19 Gabapentin 300 mg PO DAILY 02/27/19 Montelukast Sodium [Singulair] 10 mg PO HS 02/27/19 Ranitidine [Zantac -] 150 mg PO HS 02/27/19 Sulfasalazine 1,000 mg PO BID 09/24/19 Budesonide/Formeterol Fumarate [SYMBICORT 160/4.5mcg -] 2 puff IH PRN 09/25/19 Cholecalciferol (Vitamin D3) [Vitamin D -] 50,000 units PO WEEKLY 09/25/19 Montelukast Na [Singulair -] 10 mg PO DAILY 09/25/19 Pantoprazole Sodium [Protonix -] 40 mg PO DAILY 09/25/19 predniSONE [Deltasone -] 5 mg PO DAILY 09/25/19 Metoclopramide HCl [Reglan] 5 mg PO Q8H PRN #15 tablet 09/28/19 This patient is new to me today: No Emergency Visit: Yes ED Registration Date: 09/24/19 Care time: The patient presented to the Emergency Department on the above date and was hospitalized for further evaluation of their emergent condition. Critical Care patient: No - Discharge Referral Referred to [facility] Med P.C.: No ATTENDING PHYSICIAN STATEMENT I saw and evaluated the patient. I reviewed the resident's note and discussed the case with the resident. I agree with the resident's findings and plan as documented. SUBJECTIVE: OBJECTIVE: ASSESSMENT AND PLAN:
[2019-09-28] MEDS: ACETAMINOPHEN 325 MG TABLET (FP) PO PRN ×2 (11:41→18:52)
--- NOTE | 2019-09-28 11:51 | PN ---
Teaching Attending Note Name of Resident: Delilah Newby ATTENDING PHYSICIAN STATEMENT I saw and evaluated the patient. I reviewed the resident's note and discussed the case with the resident. I agree with the resident's findings and plan as documented. SUBJECTIVE: Tolerating soft diet s/p EGD 09/27. Reports improvement in abdominal pain/nausea/vomiting. No fever/chills. No diarrhea/melena/ hematochezia. OBJECTIVE: Afebrile, hemodynamically stable. Last Vital Signs Temp Pulse Resp BP Pulse Ox 98.0 F 103 H 15 124/60 98 09/28/19 07:47 09/28/19 07:47 09/28/19 07:47 09/28/19 07:47 09/27/19 20:51 Heart - S1, S2, soft SM Lungs - clear to auscultations. Abdomen - Soft, mild epigastric tenderness. Bowel Sounds normal. Extremities - no edema, no calf tenderness. RA deformities bilateral hands. Neuro - AAO x 3. Tone/Power normal all extremities. Current Medications Generic Name Dose Route Start Last Admin Trade Name Freq PRN Reason Stop Dose Admin Acetaminophen 650 mg 09/27/19 09:25 09/27/19 17:55 Tylenol - PO 650 mg Q4H PRN Administration HEADACHE Budesonide/Formoterol Fumarate 2 puff 09/27/19 10:00 09/28/19 09:35 Symbicort 160/4.5mcg - IH 2 puff BID JOSE Administration Calcium Carbonate 500 mg 09/27/19 10:00 09/28/19 09:35 Os-Davis 500mg - PO 500 mg DAILY JOSE Administration Cyclobenzaprine HCl 10 mg 09/27/19 09:25 Flexeril - PO HS PRN MUSCLE SPASMS Famotidine 20 mg 09/27/19 22:00 09/27/19 21:03 Pepcid - PO 20 mg HS JOSE Administration Folic Acid 1 mg 09/27/19 10:00 09/28/19 09:35 Folic Acid - PO 1 mg DAILY JOSE Administration Gabapentin 300 mg 09/27/19 10:00 09/28/19 09:35 Neurontin - PO 300 mg DAILY JOSE Administration Sodium Chloride 1,000 mls @ 83 mls/hr 09/27/19 09:25 09/28/19 01:00 Normal Saline - IV 83 mls/hr ASDIR JOSE Administration Metoclopramide HCl 5 mg 09/27/19 10:00 09/28/19 09:26 Reglan Injection - IVPB 5 mg Q8H-IV JOSE Administration Mirtazapine 7.5 mg 09/27/19 22:00 09/27/19 21:04 Remeron - PO 7.5 mg HS JOSE Administration Miscellaneous 1 each 09/28/19 04:15 09/28/19 05:00 Lidoderm Patch Removal MC 1 each DAILY@[id number] JOSE Administration Montelukast Sodium 10 mg 09/27/19 22:00 09/27/19 21:03 Singulair - PO 10 mg HS JOSE Administration Non-Formulary Medication 125 mg 09/27/19 09:25 Abatacept [Orencia Clickject] SQ WEEKLY JOSE Pantoprazole Sodium 40 mg 09/28/19 10:00 09/28/19 09:34 Protonix - PO 40 mg DAILY JOSE Administration Prednisone 5 mg 09/27/19 10:00 09/28/19 09:35 Deltasone - PO 5 mg DAILY JOSE Administration Sulfasalazine 1,000 mg 09/27/19 10:00 09/28/19 09:35 Azulfidine - PO 1,000 mg BID JOSE Administration Home Medications Medication Instructions Recorded Calcium Carbonate [Calcium] 600 mg PO DAILY 03/30/18 Folic Acid 1 mg PO DAILY 03/30/18 Mirtazapine [Remeron -] 7.5 mg PO HS 03/30/18 Prednisone 5 mg PO DAILY 03/30/18 Abatacept [Orencia Clickject] 125 mg SQ WEEKLY 02/27/19 Cyclobenzaprine HCl 10 mg PO PRN 02/27/19 Gabapentin 300 mg PO DAILY 02/27/19 Montelukast Sodium [Singulair] 10 mg PO HS 02/27/19 Ranitidine [Zantac -] 150 mg PO HS 02/27/19 Sulfasalazine 1,000 mg PO BID 09/24/19 Budesonide/Formeterol Fumarate 2 puff IH PRN 09/25/19 [SYMBICORT 160/4.5mcg -] Cholecalciferol (Vitamin D3) 50,000 units PO WEEKLY 09/25/19 [Vitamin D -] Montelukast Na [Singulair -] 10 mg PO DAILY 09/25/19 Pantoprazole Sodium [Protonix -] 40 mg PO DAILY 09/25/19 predniSONE [Deltasone -] 5 mg PO DAILY 09/25/19 Metoclopramide HCl [Reglan] 5 mg PO Q8H PRN #15 tablet 09/28/19 ASSESSMENT AND PLAN: 79 year old female with a history of HTN, HLD, Hx partial SBO, Breast CA s/p CTx s/p Mastectomy, Interstitial lung disease presents with 4 day history of abdominal pain, nausea, and vomiting. No hematemesis. No diarrhea/melena/ hematochezia. No fever/chills. CT Abdomen/Pelvis - no obvious interval change in comparison to prior CT from . Partially imaged lower chest demonstrated evidence of extensive chronic interstitial changes. Chest X-ray showed no acute change since prior study, chronic interstitial nodular lung changes 1. Hyponatremic, Hyperchloremic Metabolic alkalosis due to Intractable vomiting sec to esophageal strictures. Electrolyte abnormalities resolving with IV hydration Barium Swallow shows stricture distal thoracic esophagus and GEJ s/p EGD 09/27 with multiple esophageal rings and atrophic gastritis. Slow advancement of diet, now tolerating soft diet. Protonix and Reglan q8h recommended by GI Medically stable for discharge on soft diet with GI outpatient follow up. 2. RA - on Sulfasalazine, Abatacept and Prednisone 3. Chronic Respiratory Failure sec to Interstitial Lung Disease (on 2L O2 via NC ) - Stable, no evidence of exacerbation. Symbicort, Prendisone chronically. Pulmonary was consulted 09/26 for optimization prior to EGD. 4. Normocytic Anemia, likely due to Chronic disease/RA treatment - Iron/Iron Sat /B12 within normal limits. Tolerating soft diet - can be discharged home with GI out-patient follow up.
[2019-09-28 19:02] VITALS: BMI 31.4
[2019-09-28] MEDS ORDERED: LIDOCAINE 5% TOPICAL PATCH TP ONE (20:16)
[2019-09-28] MEDS: MIRTAZAPINE 15 MG TABLET (FP) PO SCH (22:11)
[2019-09-28] MEDS: FAMOTIDINE 20 MG TABLET PO SCH (22:12)
[2019-09-28] MEDS: MONTELUKAST NA 10 MG TABLET PO SCH (22:12)
[2019-09-29] MEDS: METOCLOPRAMIDE HCL INJECTION 10 MG/2 ML VIAL IVPB SCH ×3 (03:55→17:46)
[2019-09-29] MEDS ORDERED: LIDOCAINE PATCH REMOVAL MC ONE (08:15)
[2019-09-29] MEDS ORDERED: PT OWN MED DRAWER 7, Y5N ONE (09:37)
[2019-09-29] MEDS: FOLIC ACID 1 MG TABLET (FP) PO SCH (09:45)
[2019-09-29] MEDS: PANTOPRAZOLE 40 MG TABLET PO SCH (09:45)
[2019-09-29] MEDS: CALCIUM (OYSTER SHELL) 500 MG TABLET (FP) PO SCH (09:45)
[2019-09-29] MEDS: sulfaSALAzine 500 MG TABLET PO SCH ×2 (09:45→21:46)
[2019-09-29] MEDS: GABAPENTIN 300 MG CAPSULE PO SCH (09:45)
[2019-09-29] MEDS: predniSONE 5 MG TABLET (UD) PO SCH (09:45)
[2019-09-29] MEDS: SODIUM CHLORIDE 1,000 ML IV SCH ×2 (09:46→21:42)
[2019-09-29] MEDS: BUDESONIDE/FORMETEROL FUMARATE 160/4.5 mcg INHALER IH SCH ×2 (10:07→21:45)
--- NOTE | 2019-09-29 16:24 | PN ---
Physical Exam: SUBJECTIVE: Patient seen and examined, no complaints. OBJECTIVE: Vital Signs Period Temp Pulse Resp BP Sys/Duffy Pulse Ox Last 24 Hr 98 F-98.4 F 97-101 16-20 134-153/76-95 98-99 Intake & Output 09/26/19 09/27/19 09/28/19 09/29/19 23:59 23:59 23:59 23:59 Intake Total 3221 2106 1700 1580 Balance 3221 2106 1700 1580 Weight 121 lb 119 lb 119 lb GENERAL:sitting in bed, no acute distress Chest; bilateral scattered fine rales Abdomen:soft, NT Extremities: no edema Musculoskeletal: RA deformitis, kyphosis Active Medications Generic Name Dose Route Start Last Admin Trade Name Freq PRN Reason Stop Dose Admin Acetaminophen 650 mg 09/27/19 09:25 09/28/19 11:41 Tylenol - PO 650 mg Q4H PRN Administration HEADACHE Budesonide/Formoterol Fumarate 2 puff 09/27/19 10:00 09/29/19 10:07 Symbicort 160/4.5mcg - IH 2 puff BID JOSE Administration Calcium Carbonate 500 mg 09/27/19 10:00 09/29/19 09:45 Os-Davis 500mg - PO 500 mg DAILY JOSE Administration Cyclobenzaprine HCl 10 mg 09/27/19 09:25 Flexeril - PO HS PRN MUSCLE SPASMS Famotidine 20 mg 09/27/19 22:00 09/28/19 22:12 Pepcid - PO 20 mg HS JOSE Administration Folic Acid 1 mg 09/27/19 10:00 09/29/19 09:45 Folic Acid - PO 1 mg DAILY JOSE Administration Gabapentin 300 mg 09/27/19 10:00 09/29/19 09:45 Neurontin - PO 300 mg DAILY JOSE Administration Sodium Chloride 1,000 mls @ 83 mls/hr 09/27/19 09:25 09/29/19 09:46 Normal Saline - IV 83 mls/hr ASDIR JOSE Administration Metoclopramide HCl 5 mg 09/27/19 10:00 09/29/19 09:45 Reglan Injection - IVPB 5 mg Q8H-IV JOSE Administration Mirtazapine 7.5 mg 09/27/19 22:00 09/28/19 22:11 Remeron - PO 7.5 mg HS JOSE Administration Montelukast Sodium 10 mg 09/27/19 22:00 09/28/19 22:12 Singulair - PO 10 mg HS JOSE Administration Non-Formulary Medication 125 mg 09/27/19 09:25 Abatacept [Orencia Clickject] SQ WEEKLY JOSE Pantoprazole Sodium 40 mg 09/28/19 10:00 09/29/19 09:45 Protonix - PO 40 mg DAILY JOSE Administration Prednisone 5 mg 09/27/19 10:00 09/29/19 09:45 Deltasone - PO 5 mg DAILY JOSE Administration Sulfasalazine 1,000 mg 09/27/19 10:00 09/29/19 09:45 Azulfidine - PO 1,000 mg BID JOSE Administration EGD results reviewed ASSESSMENT/PLAN: 79 year old female with a history of HTN, HLD, Hx partial SBO, Breast CA s/p CTx s/p Mastectomy, Interstitial lung disease presents with 4 day history of abdominal pain, nausea, and vomiting. No hematemesis. No diarrhea/melena/ hematochezia. No fever/chills. -Multiple Esophageal rings r/o Eosinophilic esophagitis -Atrophic gastritis -Dysphagia/Intractable vomiting, from above -Hyponatremia hyperchloremic metabolic alkalosis, due to intractable vomiting, resolved -Chronic hypoxic respiratory failure due to ILD on 2L home oxygen -Rheumatoid arthritis -Normocytic anemia Plan: Soft diet, outpatient GI follow up for biopsy results and further management. Protonix 40 mg daily. off reglan. Episode of hypoxia during EGD, resolved, oxygenation at baseline. Pulmonary input pre-procedure noted. Outpatient pulmonary f/u if no new concerns. Continue sulfasalazine/abatercept/prednisone/symbicort. DVTPPX resume heparin medically optimized for DC with outpatient GI follow up. Awaiting [employer] arrangements. Anticipate in 24 hours. Visit type - Emergency Visit Emergency Visit: Yes ED Registration Date: 09/24/19 Care time: The patient presented to the Emergency Department on the above date and was hospitalized for further evaluation of their emergent condition. - New Patient This patient is new to me today: Yes Date on this admission: 09/29/19 - Critical Care Critical Care patient: No - Discharge Referral Referred to [facility] Med P.C.: No
[2019-09-29] MEDS: ACETAMINOPHEN 325 MG TABLET (FP) PO PRN (16:29)
[2019-09-29] MEDS: MIRTAZAPINE 15 MG TABLET (FP) PO SCH (21:45)
[2019-09-29] MEDS: HEPARIN NA (PORCINE) 5,000 UNITS/ML 1ML VIAL SQ SCH (21:46)
[2019-09-29] MEDS: FAMOTIDINE 20 MG TABLET PO SCH (21:46)
[2019-09-29] MEDS: MONTELUKAST NA 10 MG TABLET PO SCH (21:46)
[2019-09-30] MEDS: METOCLOPRAMIDE HCL INJECTION 10 MG/2 ML VIAL IVPB SCH ×2 (01:09→09:29)
[2019-09-30] MEDS: HEPARIN NA (PORCINE) 5,000 UNITS/ML 1ML VIAL SQ SCH (06:27)
--- NOTE | 2019-09-30 07:58 | PN ---
Progress Note, Physician History of Present Illness: GI FOLLOW UP NOTE Patient examined and case discussed with Dr Nugent Patient is s/p EGD on 09/27/19. Patient states having throat pain. Denies dysphagia, nausea, vomiting, abdominal pain, rectal bleeding, melena. - Current Medication List Current Medications: Active Medications Acetaminophen (Tylenol -) 650 mg PO Q4H PRN PRN Reason: HEADACHE Last Admin: 09/29/19 16:29 Dose: 650 mg Budesonide/Formoterol Fumarate (Symbicort 160/4.5mcg -) 2 puff IH BID [facility] Last Admin: 09/29/19 21:45 Dose: 2 puff Calcium Carbonate (Os-Davis 500mg -) 500 mg PO DAILY [facility] Last Admin: 09/29/19 09:45 Dose: 500 mg Cyclobenzaprine HCl (Flexeril -) 10 mg PO HS PRN PRN Reason: MUSCLE SPASMS Famotidine (Pepcid -) 20 mg PO HS [facility] Last Admin: 09/29/19 21:46 Dose: 20 mg Folic Acid (Folic Acid -) 1 mg PO DAILY [facility] Last Admin: 09/29/19 09:45 Dose: 1 mg Gabapentin (Neurontin -) 300 mg PO DAILY [facility] Last Admin: 09/29/19 09:45 Dose: 300 mg Heparin Sodium (Porcine) (Heparin -) 5,000 unit SQ TID [facility] Last Admin: 09/30/19 06:27 Dose: 5,000 unit Sodium Chloride (Normal Saline -) 1,000 mls @ 83 mls/hr IV ASDIR [facility] Last Admin: 09/29/19 21:42 Dose: 83 mls/hr Metoclopramide HCl (Reglan Injection -) 5 mg IVPB Q8H-IV JOSE Last Admin: 09/30/19 01:09 Dose: 5 mg Mirtazapine (Remeron -) 7.5 mg PO HS [facility] Last Admin: 09/29/19 21:45 Dose: 7.5 mg Montelukast Sodium (Singulair -) 10 mg PO HS [facility] Last Admin: 09/29/19 21:46 Dose: 10 mg Non-Formulary Medication (Abatacept [Orencia Clickject]) 125 mg SQ WEEKLY JOSE Pantoprazole Sodium (Protonix -) 40 mg PO DAILY [facility] Last Admin: 09/29/19 09:45 Dose: 40 mg Prednisone (Deltasone -) 5 mg PO DAILY [facility] Last Admin: 09/29/19 09:45 Dose: 5 mg Sulfasalazine (Azulfidine -) 1,000 mg PO BID [facility] Last Admin: 09/29/19 21:46 Dose: 1,000 mg - Objective Vital Signs: Vital Signs Temperature 98.4 F 09/29/19 14:21 Pulse Rate 101 H 09/29/19 14:21 Respiratory Rate 20 09/29/19 21:00 Blood Pressure 137/79 09/29/19 14:21 O2 Sat by Pulse Oximetry (%) 99 09/29/19 21:00 Constitutional: Yes: No Distress, Calm Eyes: Yes: Conjunctiva Clear HENT: Yes: Atraumatic Cardiovascular: Yes: Pulse Irregular Respiratory: Yes: Regular, Rhonchi Gastrointestinal: Yes: Normal Bowel Sounds, Soft Neurological: Yes: Alert, Oriented Psychiatric: Yes: Alert, Oriented Labs: CBC, BMP 09/27/19 07:35 INR, PTT INR 1.11 (0.83-1.09) H 09/27/19 07:35 Problem List - Problems (1) Abdominal pain Assessment/Plan: >Pantoprazole BID >soft diet Code(s): R10.9 - UNSPECIFIED ABDOMINAL PAIN Qualifiers: Abdominal location: epigastric Qualified Code(s): R10.13 - Epigastric pain (2) Dysphagia Assessment/Plan: >underwent EGD on 09/27 >Dietary consult for patient education on proper foods to consume for soft diet >follow up with Dr Nugent as outpatient Code(s): R13.10 - DYSPHAGIA, UNSPECIFIED
[2019-09-30 08:48] LABS: BLOOD UREA NITROGEN 3.1 mg/dL (7-18); CALCIUM 8.2 mg/dL (8.5-10.1); CREATININE 0.3 mg/dL (0.55-1.3); POTASSIUM 3.6 mmol/L (3.5-5.1)
[2019-09-30] MEDS: predniSONE 5 MG TABLET (UD) PO SCH (09:28)
[2019-09-30] MEDS: FOLIC ACID 1 MG TABLET (FP) PO SCH (09:28)
[2019-09-30] MEDS: PANTOPRAZOLE 40 MG TABLET PO SCH (09:28)
[2019-09-30] MEDS: CALCIUM (OYSTER SHELL) 500 MG TABLET (FP) PO SCH (09:28)
[2019-09-30] MEDS: GABAPENTIN 300 MG CAPSULE PO SCH (09:28)
[2019-09-30] MEDS: sulfaSALAzine 500 MG TABLET PO SCH (09:28)
[2019-09-30] MEDS: BUDESONIDE/FORMETEROL FUMARATE 160/4.5 mcg INHALER IH SCH (09:29)
[2019-09-30 09:38] VITALS: BP 141/72; PULSE 80; TEMP 98.2
--- NOTE | 2019-09-30 11:18 | DS ---
Physical Exam: SUBJECTIVE: Patient seen and examined at the bedside. She stated that she was feelings well, was tolerating her diet, and denied nausea, vomiting, or epigastric pain. Additionally, patient denied any cp, sob, constipation, diarrhea, fever, chills, headaches, dizziness, lightheadedness. OBJECTIVE: Vital Signs Period Temp Pulse Resp BP Sys/Duffy Pulse Ox Last 24 Hr 98.2 F-98.6 F 80-101 20-20 126-141/66-79 99 PHYSICAL EXAM GENERAL: The patient is awake, alert, and fully oriented, in no acute distress. Colombian speaking. HEAD: Normal with no signs of trauma. EYES: PERRL, extraocular movements intact, sclera anicteric, conjunctiva clear. ENT: Oropharynx clear without exudates, moist mucous membranes. NECK: Trachea midline, full range of motion, supple. LUNGS: Breath sounds equal, noted coarse breath sounds throughout. No wheezes or accessory muscle use. HEART: Regular rate and rhythm, S1, S2 without murmur, rub. ABDOMEN: Soft, non-tender, nondistended, normoactive bowel sounds, no guarding, no rebound, no masses. EXTREMITIES: 2+ pulses, warm, well-perfused, no edema. Chronic RA changes in joints. NEUROLOGICAL: Cranial nerves II through XII grossly intact. 5/5 muscle strength upper and lower extremities, bilaterally. PSYCH: Normal mood, normal affect. SKIN: Warm, dry, normal turgor, no rashes or lesions noted. LABS Laboratory Results - last 24 hr 09/30/19 07:18 Sodium 136 Potassium 3.6 Chloride 97 L Carbon Dioxide 30 Anion Gap 9 BUN 3.1 L Creatinine 0.3 L Est GFR (CKD-EPI)AfAm 127.10 Est GFR (CKD-EPI)NonAf 109.67 Random Glucose 97 Calcium 8.2 L HOSPITAL COURSE: Sweta Bhatia is a 79 year old female with a past medical history of HTN, partial SBO, Breast Ca (s/p chemotherapy and mastectomy), ILD (on 2L O2), RA, osteoporosis, and depression who presented with intractable nausea/vomiting and admitted for Hyponatremic, Hyperchloremic Metabolic alkalosis. 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 Subsequently an EGD was done which revealed multiple esophageal rings and atrophic gastritis. Patient was continued on her home dose PPI and started on Reglan. Her vomiting resolved and her diet was advanced slowly, which she was able to tolerate. Her electrolyte abnormalities resolving with IV hydration. Patient continue all of her home meds and remained at her baseline O2 status. Patient was advised to start a soft diet and to follow up with gastroenterology outpatient. Is to follow up pathology results with her crematory operator. Patient was advised to continue her PPI, take Reglan as needed for nausea and to follow up with her PCP and crematory operator. Patient and family were advised of the plan, were in agreement and reiterated the plan. Patient was discharged in stable medical condition. Date of Admission:09/24/19 Date of Discharge: 09/30/19 Minutes to complete discharge: 35 Discharge Summary Problems reviewed: Yes Reason For Visit: HYPONATREMIA,PERSISTENT VOMITING,ABD PAIN Condition: Improved - Instructions Diet, Activity, Other Instructions: You were admitted due to nausea, vomiting and inability to eat. You were given medications to help with your nausea and pain in your stomach when you eat. You were seen by the crematory operator (stomach, liver, intestine doctor) and were recommended to have a test done that showed that you have a narrowing of your esophagus close to your stomach. You had an EGD (camera scope of the upper part of your gastrointestinal system) which showed abnormalities of your esophagus and stomach. The crematory operator recommended to continue taking medications for nausea and pain and to eat a soft diet and to follow up with the crematory operator outpatient. MEDICATIONS CONTINUE taking pantoprazole 40mg every day. START to take metoclopramide 5mg underneath the tongue as needed up to three times a day for nausea. Continue to take all of your other home medications as prescribed. REFERRALS Please see your primary care doctor, Dr. Laverne Chow, within 1 week. Please see the crematory operator, Dr. Janusz Nugent, within 1 week SPECIAL INSTRUCTIONS Start to eat a soft diet. Chew your food thoroughly and eat slowly making sure to swallow completely before taking the next bite. Please follow up with your crematory operator about the pathology results of your EGD. If you have any symptoms of chest pain, shortness of breath, worsening abdominal pain, worsening vomiting, blood or bile in the vomit, blood in your stools, fevers, or any other general feelings of unwellness, please call 911 or go to your nearest emergency room. Referrals: Janusz Nugent MD [Staff Physician] - 1 Week Laverne Chow MD [Primary Care Provider] - 1 Week Disposition: VNS/HOME HEALTH CARE - Home Medications Comprehensive Discharge Medication List: Ambulatory Orders Calcium Carbonate [Calcium] 600 mg PO DAILY 03/30/18 Folic Acid 1 mg PO DAILY 03/30/18 Mirtazapine [Remeron -] 7.5 mg PO HS 03/30/18 Prednisone 5 mg PO DAILY 03/30/18 Abatacept [Orencia Clickject] 125 mg SQ WEEKLY 02/27/19 Cyclobenzaprine HCl 10 mg PO PRN 02/27/19 Gabapentin 300 mg PO DAILY 02/27/19 Montelukast Sodium [Singulair] 10 mg PO HS 02/27/19 Ranitidine [Zantac -] 150 mg PO HS 02/27/19 Sulfasalazine 1,000 mg PO BID 09/24/19 Budesonide/Formeterol Fumarate [SYMBICORT 160/4.5mcg -] 2 puff IH PRN 09/25/19 Cholecalciferol (Vitamin D3) [Vitamin D -] 50,000 units PO WEEKLY 09/25/19 Montelukast Na [Singulair -] 10 mg PO DAILY 09/25/19 predniSONE [Deltasone -] 5 mg PO DAILY 09/25/19 Metoclopramide HCl [Metoclopramide HCl Odt] 5 mg PO TID PRN #15 tab.rapdis 09/30 Pantoprazole Sodium [Protonix] 40 mg PO DAILY #30 tablet.dr 09/30/19 Problem List - Problems (1) Bronchiectasis Code(s): J47.9 - BRONCHIECTASIS, UNCOMPLICATED Qualifiers: Bronchiectasis type: uncomplicated Qualified Code(s): J47.9 - Bronchiectasis, uncomplicated (2) COPD not affecting current episode of care Code(s): J44.9 - CHRONIC OBSTRUCTIVE PULMONARY DISEASE, UNSPECIFIED (3) Cholelithiasis and acute cholecystitis without obstruction Code(s): K80.00 - CALCULUS OF GALLBLADDER W ACUTE CHOLECYST W/O OBSTRUCTION (4) Diastolic CHF Code(s): I50.30 - UNSPECIFIED DIASTOLIC (CONGESTIVE) HEART FAILURE (5) H/O malignant neoplasm of breast Code(s): Z85.3 - PERSONAL HISTORY OF MALIGNANT NEOPLASM OF BREAST (6) Hyponatremia Code(s): E87.1 - HYPO-OSMOLALITY AND HYPONATREMIA (7) Interstitial lung disease Code(s): J84.9 - INTERSTITIAL PULMONARY DISEASE, UNSPECIFIED (8) Abdominal pain Code(s): R10.9 - UNSPECIFIED ABDOMINAL PAIN Qualifiers: Abdominal location: epigastric Qualified Code(s): R10.13 - Epigastric pain (9) Dysphagia Code(s): R13.10 - DYSPHAGIA, UNSPECIFIED (10) Persistent vomiting Code(s): R11.15 - CYCLICAL VOMITING SYNDROME UNRELATED TO MIGRAINE This patient is new to me today: No Emergency Visit: Yes ED Registration Date: 09/24/19 Care time: The patient presented to the Emergency Department on the above date and was hospitalized for further evaluation of their emergent condition. Critical Care patient: No - Discharge Referral Referred to [facility] No
--- NOTE | 2019-09-30 11:38 | PN ---
Teaching Attending Note Name of Resident: Jovani Mistry ATTENDING PHYSICIAN STATEMENT I saw and evaluated the patient. I reviewed the resident's note and discussed the case with the resident. I agree with the resident's findings and plan as documented with exceptions below. SUBJECTIVE: Patient seen and examined. ready to go home, tolerating diet, no complaints. OBJECTIVE: Vital Signs Period Temp Pulse Resp BP Sys/Duffy Pulse Ox Last 24 Hr 98.2 F-98.6 F 80-101 20-20 126-141/66-79 99 Intake & Output 09/27/19 09/28/19 09/29/19 09/30/19 23:59 23:59 23:59 23:59 Intake Total 2106 1700 3008 1251 Balance 2106 1700 3008 1251 Weight 119 lb 119 lb 119 lb 6 oz General: sitting in chair, no acute distress Neck: soft, supple Chest: fine bilateral crackles, unchanged Abdomen:soft, NT Extremities: no edema Home Medications Medication Instructions Recorded Calcium Carbonate [Calcium] 600 mg PO DAILY 03/30/18 Folic Acid 1 mg PO DAILY 03/30/18 Mirtazapine [Remeron -] 7.5 mg PO HS 03/30/18 Prednisone 5 mg PO DAILY 03/30/18 Abatacept [Orencia Clickject] 125 mg SQ WEEKLY 02/27/19 Cyclobenzaprine HCl 10 mg PO PRN 02/27/19 Gabapentin 300 mg PO DAILY 02/27/19 Montelukast Sodium [Singulair] 10 mg PO HS 02/27/19 Ranitidine [Zantac -] 150 mg PO HS 02/27/19 Sulfasalazine 1,000 mg PO BID 09/24/19 Budesonide/Formeterol Fumarate 2 puff IH PRN 09/25/19 [SYMBICORT 160/4.5mcg -] Cholecalciferol (Vitamin D3) 50,000 units PO WEEKLY 09/25/19 [Vitamin D -] Montelukast Na [Singulair -] 10 mg PO DAILY 09/25/19 predniSONE [Deltasone -] 5 mg PO DAILY 09/25/19 Metoclopramide HCl [Metoclopramide 5 mg PO TID PRN #15 tab.rapdis 09/30/19 HCl Odt] Pantoprazole Sodium [Protonix] 40 mg PO DAILY #30 tablet.dr 09/30/19 Active Medications Non-Formulary Medication (Abatacept [Orencia Clickject]) 125 mg SQ WEEKLY JOSE Laboratory Results - last 24 hr 09/30/19 07:18 Sodium 136 Potassium 3.6 Chloride 97 L Carbon Dioxide 30 Anion Gap 9 BUN 3.1 L Creatinine 0.3 L Est GFR (CKD-EPI)AfAm 127.10 Est GFR (CKD-EPI)NonAf 109.67 Random Glucose 97 Calcium 8.2 L ASSESSMENT AND PLAN: 79 year old female with a history of HTN, HLD, Hx partial SBO, Breast CA s/p CTx s/p Mastectomy, Interstitial lung disease presents with 4 day history of abdominal pain, nausea, and vomiting. No hematemesis. No diarrhea/melena/ hematochezia. No fever/chills. -Multiple Esophageal rings r/o Eosinophilic esophagitis -Atrophic gastritis -Dysphagia/Intractable vomiting, from above -Hyponatremia hyperchloremic metabolic alkalosis, due to intractable vomiting, resolved -Chronic hypoxic respiratory failure due to ILD on 2L home oxygen -Rheumatoid arthritis -Normocytic anemia Plan: Soft diet, outpatient GI follow up for biopsy results and further management. Protonix 40 mg daily. off reglan. Episode of hypoxia during EGD, resolved, oxygenation at baseline. Outpatient pulmonary f/u Continue sulfasalazine/abatercept/prednisone/symbicort. dc home with daughter and LEAD PASTOR, discussed with patient and social work.
--- NOTE | 2019-09-30 16:34 | PATH ---
Surgical Pathology Report Patient Name: RL COMBS [facility]. Rec. #: [id number] /Age/Gender: 1940 (Age: 79) / F Account: [id number] Location: [address] [place] [address] Taken: 09/27/2019 Received: 09/27/2019 Reported: 09/30/2019 Physicians: Janusz Nugent M.D. Specimen(s) Received A: ANTRUM B: MID ESOPHAGUS C: UPPER ESOPHAGUS Clinical History Esophageal stricture Postoperative diagnosis: Multiple esophageal rings below esophagus, atrophic gastritis Final Diagnosis A. STOMACH, ANTRUM, BIOPSY GASTRIC ANTRAL MUCOSA WITH SEVERE CHRONIC ACTIVE GASTRITIS. IMMUNOHISTOCHEMICAL STAIN FOR H. PYLORI IS POSITIVE (FEW). B. MID ESOPHAGUS, BIOPSY: SQUAMOUS MUCOSA WITH MILD CHRONIC INFLAMMATION AND CHANGES OF MILD TO MODERATE REFLUX TYPE ESOPHAGITIS. SEE COMMENT. C. UPPER ESOPHAGUS, BIOPSY: SQUAMOUS MUCOSA WITH MODERATE CHRONIC INFLAMMATION AND CHANGES OF MILD REFLUX TYPE ESOPHAGITIS. SEE COMMENT. Comment: No increased intraepithelial eosinophils or diagnostic features of eosinophilic identified. Electronically Signed Allyson Ozuna M.D. Gross Description A. Received in formalin, labeled "antrum biopsy" are 2 norman, irregular portions of soft tissue measuring 0.3 and 0.5 cm. in greatest dimension. The specimens are submitted in toto in one cassette. B. Received in formalin, labeled "mid esophagus biopsy" are 2 norman, irregular portions of soft tissue measuring 0.2 and 0.3 cm. in greatest dimension. The specimens are submitted in toto in one cassette. C. Received in formalin, labeled "upper esophagus biopsy" is a norman, irregular portion of soft tissue measuring 0.3 cm. in greatest dimension. The specimen is submitted in toto in one cassette. 09/27/2019 saudi09/27/2019
== END 2019-09-30 11:01 | disposition home health service (06) | DRG 243 ==
LOC: JER 13:21 → JERBED 22:41 → J6S 09-25 02:36
PROVIDERS: ADMIT Internal Medicine; ATTEND Hospitalist
PROC: 0DB68ZX Excision of Stomach, Via Natural or Artificial Opening Endoscopic, Diagnostic (ICD-10-PCS; 2019-09-27)
PROC: 0DB58ZX Excision of Esophagus, Via Natural or Artificial Opening Endoscopic, Diagnostic (ICD-10-PCS; principal; 2019-09-27 07:30)
DX: K22.2 Esophageal obstruction (principal); J84.9 Interstitial pulmonary disease, unspecified; E87.3 Alkalosis; J96.11 Chronic respiratory failure with hypoxia; E87.1 Hypo-osmolality and hyponatremia; Z99.81 Dependence on supplemental oxygen; R13.10 Dysphagia, unspecified; K20.0 Eosinophilic esophagitis; K52.9 Noninfective gastroenteritis and colitis, unspecified; M06.9 Rheumatoid arthritis, unspecified; K29.40 Chronic atrophic gastritis without bleeding; E87.8 Other disorders of electrolyte and fluid balance, not elsewhere classified; I10 Essential (primary) hypertension; E78.5 Hyperlipidemia, unspecified; F32.9 Major depressive disorder, single episode, unspecified; Z88.0 Allergy status to penicillin; Z85.3 Personal history of malignant neoplasm of breast; M81.0 Age-related osteoporosis without current pathological fracture; K80.20 Calculus of gallbladder without cholecystitis without obstruction; D64.9 Anemia, unspecified
CPT/HCPCS: 36415; 71045-TC-FY; 74177-TC; 74220-TC-FY; 80048; 80053; 81003; 82550; 82607; 82746; 83540; 83550; 83690; 83735; 83930; 83935; 84100; 84105; 84300; 84484; 84540; 84550; 85025; 85027; 85610; 85730; 87086; 88305-TC; 93005; 93010; 97116-GP; 97162-GP; 99284-25; G0008; J0131; J1644; J7030; Q2036; Q9967